=== PATIENT | female | born 1940 | race Caucasian/White ===

== ENCOUNTER 2024-03-08 10:16 | Outpatient (CLI) | payer MEDICARE, SELFPAY ==
--- OUTSIDE RECORDS SUMMARY | 2024-03-08 10:35 | XMS_ITS | Encounter Summary ---
Author Organization [facility] Address [address] [place] [address] Phone Care Team Providers Care Clothing Pattern Preparer Name Role Phone Vincent Costello MD Primary Care Provider [phone] Patricia Mcginnis MD Unavailable [phone] Kandice Rollins OPENING MACHINE CLEANER Unavailable Unavailable Belinda Ha DO Unavailable [phone] Paige Goldman APRN, CDL INSTRUCTOR Unavailable Rosmery Rico MD Primary Care Provider Reason for Visit * Reason Comments Medication Refill Encounter Details Date Type Department Care Team (Late st Contact Info) Description 09/11/2020 Refill [facility] - Primary Care - [place] [address] [place] [address] Vincent Costello MD [address] [place] [address] Medication Refill Social History Tobacco Use Types Packs/Day Years Used Date Smoking Tobacco: Former Cigarettes 1.5 27 Smokeless Tobacco: Never Alcohol Use Standard Drinks/Week Comments Yes 8 (1 standard drink = 0.6 oz pur e alcohol) with dinner PHQ-2 Answer Date Recorded PHQ-2 Score 0 10/04/2018 Sexually Active Control Partners Comments Not Currently Comments No Sex and Gender Information Value Date Recorded Sex Assigned at Not on file Legal Sex Female 7:32 PM CDT Gender Identity Not on file Sexual Orientation Not on file COVID-19 Exposure Response Date Recorded In the last month, have you been in contact with someone who was confirmed or suspected to have Coronavirus / COVID-19? No / Unsure 09/09/2020 10:29 AM CDT documented as of this encounter Miscellaneous Notes * Telephone Encounter - Analia Barth RN - 09/11/2020 8:39 AM CDT Medication approved and signed per standing order protocol.Medication approved and signed per standing order protocol. documented in this encounter Plan of Treatment Not on file documented as of this encounter Visit Diagnoses Diagnosis Enuresis documented in this encounter Additional Health Concerns Infection Onset Date Last Indicated Resolved Time COVID - 19 12/30/2021 12/30/2021 01/03/2022 11:0 4 AM SUB PRIOR Assessment Noted Time PHQ-9 Depression Total Score: 0 06/01/19 19 9:00 AM CDT documented as of this encounter Care Teams Clothing Pattern Preparer Relationship Specialty Start Date End Date Vincent Costello MD [address] [place] [address] PCP - General Internal Medicine 09/30/15 08/31/23 Rosmery Rico MD [address] [place] [address] PCP - General Family Medicine 09/01/23 Patricia Mcginnis MD [address] [facility], [address] [address] Consulting Physician Nephrology 05/03/16 Kandice Rollins NP [address] [facility], [address] [address] Nurse Practitioner Psychiatry 01/30/20 Dilcia Belinda MayaDO [address] [place] [address] Dr Char Escalera [address] [address] Consulting Physician Otolaryngology 02/24/23 Paige Goldman APRN, CDL INSTRUCTOR [address] [place] [address] Nurse Practitioner Advanced Practice Nurse 01/26/23 Quang Rollins MD Consulting Physician Psychiatry 11/03/16 documented as of this encounter
--- OUTSIDE RECORDS SUMMARY | 2024-03-08 10:35 | XMS_ITS | Encounter Summary ---
Author Organization [facility] Address [address] [place] [address] Phone Care Team Providers Care Consulting Property Manager Name Role Phone Vincent Costello MD Primary Care Provider [phone] Patricia Mcginnis MD Unavailable [phone] Kandice Rollins ACCOUNTS PAYABLE TECHNICIAN Unavailable Unavailable Belinda Ha DO Unavailable [phone] Paige Goldman APRN, WOOD MECHANIST Unavailable Rosmery Rico MD Primary Care Provider [phone] Reason for Visit * Reason Comments Medication Refill Encounter Details Date Type Department Care Team (Late st Contact Info) Description 03/17/[address] [facility] - Primary Care - [place] [address] [place] [address] Vincent Costello MD [address] [place] [address] Medication Refill Social History Tobacco Use Types Packs/Day Years Used Date Smoking Tobacco: Former Cigarettes 1.5 27 Smokeless Tobacco: Never Alcohol Use Standard Drinks/Week Comments Yes 8 (1 standard drink = 0.6 oz pur e alcohol) with dinner PHQ-2 Answer Date Recorded Total Score - Questions 1-9 0 05/2021 Sexually Active Control Partners Comments Not Currently Comments No Sex and Gender Information Value Date Recorded Sex Assigned at Not on file Legal Sex Female 7:32 PM CDT Gender Identity Not on file Sexual Orientation Not on file COVID-19 Exposure Response Date Recorded In the last 10 days, have yo u been in contact with someone who was confirmed or suspected to have Coronavirus/COVID-19? No / Unsure 03/17/2022 2:13 PM SHEET HANGER documented as of this encounter Miscellaneous Notes * Telephone Encounter - Vincent Costello MD - 03/17/2022 11:51 AM SHEET HANGER Refill request approved. T HANGER * Telephone Encounter - Alia Black RN - 03/17/2022 11:14 AM CST Medication failed the protocol, provider to review and approve the medication order if appropriate. Requested Prescriptions Pending Prescriptions Disp Refills traMADol (ULTRAM) 50 MG Tablet [Pharmacy Med Name: TRAMADOL 50MG TABLETS] 28 Tablet 0 Sig: TAKE 1 TABLET BY MOUTH EVERY 8 HOURS NEEDED FOR MODERATE TO SEVERE PAIN Not Delegated - Opioid Agonists Protocol Failed - 03/17/2022 11:12 AM Failed - This refill cannot be delegated Passed - Visit with relevant provider in past 12 months or upcoming 90 days Recent Visits Date Type Provider Dept 02/18/22 Office Visit [facility] 01/07/22 Office Visit Vincent Costello MD [facility] 12/15/21 Office Visit Ness Mccrary APRN, CNP [facility] 08/17/21 Office Visit Vincent Costello MD [facility] Showing recent visits within past 365 days and meeting all other requirements Future Appointments No visits were found meeting these conditions. Showing future appointments within next 90 days and meeting all other requirements T HANGER * Telephone Encounter - Alia Black RN - 03/17/2022 11:13 AM CST Per [place] PDMP last fill date 02/16/22. T HANGER documented in this encounter Plan of Treatment Not on file documented as of this encounter Visit Diagnoses Diagnosis Arthritis Arthropathy, unspecified, site unspecified documented in this encounter Additional Health Concerns Assessment Noted Time PHQ-9 Depression Total Score: 0 06/01/19 19 9:00 AM CDT documented as of this encounter Care Teams Consulting Property Manager Relationship Specialty Start Date End Date Vincent Costello MD [address] [place] [address] PCP - General Internal Medicine 09/30/15 08/31/23 Rosmery Rico MD [address] [place] [address] PCP - General Family Medicine 09/01/23 Patricia Mcginnis MD [address] [facility], [address] [address] Consulting Physician Nephrology 05/03/16 Kandice Rollins NP [address] [facility] IM NE[facility]OLOGY, [address] [address] Nurse Practitioner Psychiatry 01/30/20 Belinda Ha DO [address] [place] [address] Dr Char Escalera [address] [address] Consulting Physician Otolaryngology 02/24/23 Paige Goldman APRN, WOOD MECHANIST [address] [place] [address] Nurse Practitioner Advanced Practice Nurse 01/26/23 Quang Rollins MD Consulting Physician Psychiatry 11/03/16 documented as of this encounter
--- OUTSIDE RECORDS SUMMARY | 2024-03-08 10:35 | XMS_ITS | Clinical Summary ---
Author Organization [facility] Address [address] [facility], [address] [address] Phone Care Team Providers Care Traffic Investigator Name Role Phone Patricia Mcginnis MD Unavailable [phone] Kandice Rollins NP Unavailable Unavailable Belinda Ha DO Unavailable [phone] Paige Goldman APRN, PLASTIC MANAGER Unavailable Rosmery Rico MD Primary Care Provider [phone] Allergies Active Allergy Reactions Criticality Noted Date Comments Penicillins Diarrhea 10/19/2020 Sulfa Antibiotics Unknown 03/03/2015 Medications Calcium Carbonate-Vitam in D (CALCIUM + D PO) Take 1,000 mg by mouth daily. Active traZODone (DESYREL) 50 MG Tablet TAKE 1 TAB BY MOUTH NIGHTLY. 90 Tab 1 01/05/2018 Active DULoxetine (CYMBALTA) [address] Particles Take 2 Caps by mouth daily. 60 Cap 5 12/03/2018 Active cholecalciferol 25 mcg Tablet Take 1,000 Units by mouth. 01/10/2019 Active Diclofenac Sodium (VOLTAREN) 1 % Gel Apply 4 g as needed for Other (Pain). on back 06/15/2016 Active buPROPion (WELLBUTRIN) 300 MG TABLET SR 24 HR XL tablet TAKE 1 TABLET BY MOUTH EVERY DAY IN THE MORNING 12/22/2020 Active amLODIPine (NORVASC) 5 MG TabletIndicatio ns:Hypertension , essential Take 1 Tablet by mouth daily. 90 Tablet 01/06/2022 Active levothyroxine (SYNTHROID) 25 MCG Tablet TAKE 1 TABLET BY MOUTH DAILY 90 Tablet 3 11/21/2022 Active ipratropium (ATROVENT) 0.03 % Solution USE 2 SPRAYS IN EACH NOSTRIL THREE TIMES DAILY 01/25/2023 Active traMADol (ULTRAM) 50 MG TabletIndicatio ns:Arthritis Take 1 Tablet by mouth every 8 hours as needed for Moderate or more severe pain or Severe pain. 28 Tablet 1 07/12/2023 Active buPROPion (WELLBUTRIN) 300 MG TABLET SR 24 HR XL tablet Take 1 Tablet by mouth daily. 06/26/2023 Active colestipol (COLESTID) 1 GM Tablet Take 1 g by mouth 2 times daily. 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 last week Chronic rhinitis 01/25/2023 02/24/2023 Overview (02/24/2023): Last Assessment & Plan: Atrovent 2 sprays into each nostril while looking down over the sink, do not sniff in or blow nose after use for at least 30 minutes, about 30 minutes before a meal Anxiety 12/30/2021 VMR (vasomotor rhinitis) 01/30/2020 History of SCC (squamous cell carcinoma) of skin 09/24/2019 History of basal cell carcinoma 09/24/2019 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b chronic kidney disease 2017 Stage 3b chronic kidney disease 01/05/2018 Hypertension, essential 01/05/2018 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 Depression 08/12/2015 Irritable bowel syndrome with diarrhea 6 Mixed hyperlipidemia 04/01/2015 Gastroesophageal reflux disease without esophagi tis 04/01/2015 Hypothyroidism due to acquired atrophy of thyroi d 04/01/2015 Arthritis 04/01/2015 Episodic tension-type headache 12/03/2014 Resolved Problems Problem Noted Date Diagnosed Date Resolved Date Pyelonephritis 01/04/2022 03/31/2022 Acute cystitis 12/30/2021 01/07/2022 Acute kidney injury superimp osed on chronic kidney disease 12/30/2021 03/31/2022 Gram negative septicemia 12/30/2021 Anemia in CKD (chronic kidney disease) 09/11/2015 12/03/2018 Chronic kidney disease, stage I 04/03/2015 05/31/2018 Immunizations Immunization Administration Dates Next Due Covid-19, Mrna, Lnp-s, PF, 1 00 mcg/0.5 mL Dose (Moderna) 08/17/2021,04/17/2020,03/20/2020 Influenza Vaccine greater than 3 yrs 01/05/2021, 10/30/2013 Influenza Vaccine, Quadrivalent, PF 11/22/2018,0 11/03/2016 Influenza, High-dose, Quadrivalent 11/16/2021 Influenza, Quadrivalent, Adjuvanted 11/08/2022,1 Influenza, Seasonal, Injectable, Undefined 01/05,10/26/2012,11/27/2008 Influenza, high-dose, trivalent, PF 11/15/2017,0 11/06/2015 PUR FLU HIGH DOSE (FLUZONE) 03/03/2015 PUR PCV-13 09/30/2015 PUR TDAP 7+ YRS IM 02/29/2016 Pneumococcal Vaccine Adult - 23 Valent 3,04/25/2007 TDAP Vaccine 08/16/2006 Zoster Vaccine Recombinant 05/05/2021,01/05/2021 Zoster Vaccine, live 03/06/2009 Family History Medical History Relation Name Comments Congestive Heart Failure Brother 1 High Cholesterol Brother 1 High Cholesterol Brother 2 Osteoarthritis Brother 2 Congestive Heart Failure Father High Cholesterol Father Hypertension Father Osteoarthritis Maternal Grandfather Osteoarthritis Mother High Cholesterol Sister 1 High Cholesterol Sister 2 Relation Name Status Comments Brother 1 Brother 2 Father Maternal Grandfather Mother Sister 1 Sister 2 Social History Tobacco Use Types Packs/Day Years Used Date Smoking Tobacco: Former Cigarettes 1.5 27 Smokeless Tobacco: Never Tobacco Cessation:Counseling Given: Not Answered Alcohol Use Standard Drinks/Week Comments Yes 8 (1 standard drink = 0.6 oz pur e alcohol) with dinner PHQ-2 Answer Date Recorded Total Score - Questions 1-9 0 02/06 Sexually Active Control Partners Comments Not Currently Comments No Sex and Gender Information Value Date Recorded Sex Assigned at Not on file Legal Sex Female 7:32 PM CDT Gender Identity Not on file Sexual Orientation Not on file Last Filed Vital Signs Vital Sign Reading Time Taken Comments Blood Pressure 128/80 11/15/2023 11:34 AM CDT Pulse 74 11/15/2023 11:34 AM CDT Temperature 36.1 ??C (96.9 ??F) 11/15/2023 1 1:34 AM CDT Respiratory Rate 14 11/15/2023 11:3 4 AM CDT Oxygen Saturation 94% 11/15/2023 11: 34 AM CDT Inhaled Oxygen Concentration - - Weight 60.3 kg (132 lb 14.4 oz) 024 11:34 AM CDT Height 154.9 cm (5' 1 ) 11/15/2023 11:3 4 AM CDT Body Mass Index 25.11 11/15/2023 11:34 AM CDT Plan of Treatment Health Maintenance Due Date Last Done Comments DEXA Bone Density 07/23/2011 07/22/2009 Influenza Immunization (#1) 2023 10/04/2022, 11/16/2021, 01/05/2021, Additional history exists SARS-COV-2 Immunization (8 - Moderna risk season) 2024 10/24/2023, 11/13/2022, 02/08/2022, Additional history exists Td Immunization Every 10 Years (Adults With 1 Tdap) 02/28/2026 02/29/2016, 08/16/2006 Pneumococcal Immunization (50+ years) Completed 09/30/2015, 10/26/2012, 04/25/2007 Pneumococcal Immunization Combined Discontinued 09/30/2015, 10/26/2012, 04/25/2007 Zoster Immunization Completed 05/05/2021, 01/05/2021, 03/06/2009 Hepatitis C Virus (HCV) Screening Completed 02/24/2023 Respiratory Syncytial Virus (RSV) Immunization (Adult) Completed 10/24/2023 Hepatitis B Immunization Aged Out No longer eligible based on patient's age to complete this topic Meningococcal Immunization (ACWY) Aged Out No longer eligible based on patient's age to complete this topic Rotavirus Immunization Aged Out No lo nger eligible based on patient's age to complete this topic Procedures Procedure Name Priority Date/Time Associated Diagnosis Comments HEPATITIS C ANTIBODY Routine 02/24/2023 9:42 AM CUSTOM CLOTHIER Encounter for hepatitis C screening test for low risk patient from Last 3 Months or Most Recently Relevant to Health Maintenance Results * HEPATITIS C ANTIBODY (02/24/2023 9:42 AM CUSTOM CLOTHIER) hepatitis C antibody 0.11 <1 S/CO [facility] ARCH [id number] 02/24/2023 9:39 PM CUSTOM CLOTHIER [facility] Comment: Signal/Cutoff ratio ??< 0.79 is Nondetected Signal/Cutoff ratio 0.80-0.99 is Grayzone Signal/Cutoff ratio > 0.99 is Detected Supplemental assays are recommended if signal/cutoff ratio is >/=1.00. ??Signal/cutoff ratio result >/= 5.00 is 97% predictive of positivity for recombinant immunoblot assay (RIBA) and will be reported to the [place] Department of Public Health as required. Blood Venipuncture / Unknown 02/24/2023 9:42 AM CUSTOM CLOTHIER 02/24/2023 9:42 AM CUSTOM CLOTHIER us Vincent Costello MD CHEMISTRY ORDERABLES Loreto giraldo Result [facility] [address] [place] [address], from Last 3 Months or Most Recently Relevant to Health Maintenance Insurance MEDICARE RolePoint GENERIC Advance Directives * Full Code (Latest Code Status on File) Date Activated Date Inactivated Comments 01/13/2022 10:54 AM * No CPR-Selective Treatment Date Activated Date Inactivated Comments 12/30/2021 10:37 PM 01/04/2022 6:32 PM No CPR - Selective Treatment: FULL ARREST: Do Not Attempt Resuscitation. PRE-ARREST: DO NOT USE INTUBATION OR MECHANICAL VENTILATION, but may use basic medical treatment like CPAP or BiPAP, antibiotics, IV fluids, oxygen, etc. Avoid care in ICU setting. Question Answer Comments Physician documentation made in notes? Yes Care Teams Traffic Investigator Relationship Specialty Start Date End Date Rosmery Rico MD [address] [place] [address] PCP - General Family Medicine 09/01/23 Patricia Mcginnis MD [address] [facility] [address] [facility] IM NEPH[facility]OLOGY, [address] [address] Consulting Physician Nephrology 05/03/16 Kandice Rollins NP [address] [facility] [address] DIV IM NEPHROLOGY, [address] [address] Nurse Practitioner Psychiatry 01/30/20 Belinda Ha DO [address] [place] [address] Dr Char Escalera [address] [address] Consulting Physician Otolaryngology 02/24/23 Paige Goldman APRN, PLASTIC MANAGER [address] [place] [address] Nurse Practitioner Advanced Practice Nurse 01/26/23 Quang Rollins MD Consulting Physician Psychiatry 11/03/16
--- OUTSIDE RECORDS SUMMARY | 2024-03-08 10:35 | XMS_ITS | Encounter Summary ---
Author Organization [facility] Address [address] [place] [address] Phone Care Team Providers Care Metal Door Assembler Name Role Phone Vincent Costello MD Primary Care Provider [phone] Patricia Mcginnis MD Unavailable [phone] Kandice Rollins METALLURGICAL TECHNICIAN Unavailable Unavailable Belinda Ha DO Unavailable [phone] Paige Goldman APRN, CORE SHAPER SIDES Unavailable Rosmery Rico MD Primary Care Provider [phone] Reason for Visit * Reason Comments Medication Refill Encounter Details Date Type Department Care Team (Late st Contact Info) Description 12/09/2021 Refill [facility] - Primary Care - [place] [address] [place] [address] Vincent Costello MD [address] [place] [address] Medication Refill Social History Tobacco [...] on file Sexual Orientation Not on file documented as of this encounter Miscellaneous Notes * Telephone Encounter - Alia Black RN - 12/09/2021 8:50 AM CDT oxybutynin (DITROPAN-XL) 5 MG TABLET SR 24 HR 90 Tablet 3 03/05/2021 Sig - Route: TAKE 1 TABLET BY MOUTH DAILY - Oral Refill too soon documented in this encounter Plan of Treatment Not on file documented as of this encounter Visit Diagnoses Diagnosis Enuresis documented in this encounter Additional Health Concerns Infection Onset Date Last Indicated Resolved Time COVID - 19 12/30/2021 12/30/2021 01/03/2022 11:0 4 AM WELDING PROCESS SPECIALIST Assessment Noted Time PHQ-9 Depression Total Score: 0 06/01/19 19 9:00 AM CDT documented as of this encounter Care Teams Metal Door Assembler Relationship Specialty Start Date End Date Vincent Costello MD [address] [place] [address] PCP - General Internal Medicine 09/30/15 08/31/23 Rosmery Rico MD [address] [place] [address] PCP - General Family Medicine 09/01/23 Patricia Mcginnis MD [address] [facility], [address] [address] Consulting Physician Nephrology 05/03/16 Kandice Rollins NP [address] [facility], [address] [address] Nurse Practitioner Psychiatry 01/30/20 Belinda Ha DO [address] [place] [address] Dr Char Escalera [address] [address] Consulting Physician Otolaryngology 02/24/23 Paige Goldman APRN, CORE SHAPER SIDES [address] [place] [address] Nurse Practitioner Advanced Practice Nurse 01/26/23 Quang Rollins MD Consulting Physician Psychiatry 11/03/16 documented as of this encounter
--- OUTSIDE RECORDS SUMMARY | 2024-03-08 10:35 | XMS_ITS | Encounter Summary ---
Author Organization [facility] Address [address] [place] [address] Phone Care Team Providers Care Sailor Name Role Phone Vincent Costello MD Primary Care Provider [phone] Patricia Mcginnis MD Unavailable [phone] Kanidce Rollins PHD INTERNSHIP Unavailable Unavailable Belinda Ha DO Unavailable [phone] Paige Goldman APRN, DEVELOPMENTAL MATHEMATICS PROFESSOR Unavailable Rosmery Rico MD Primary Care Provider [phone] Reason for Visit * Reason Comments Medication Refill Encounter Details Date Type Department Care Team (Late st Contact Info) Description 03/12/2023 Refill [facility] - Primary Care - [place] [address] [place] [address] Vincent Costello MD [address] [place] [address] Medication Refill Social History Tobacco [...] encounter Miscellaneous Notes * Telephone Encounter - Avery Hutchinson RN - 03/13/2023 8:12 AM CST The original prescription was discontinued on 02/24/2023 by Vincent Costello MD for the following reason: Med List Clean Up L MACHINE OPERATOR documented in this encounter Plan of Treatment Not on file documented as of this encounter Visit Diagnoses Diagnosis Enuresis documented in this encounter Additional Health Concerns Assessment Noted Time PHQ-9 Depression Total Score: 0 02/24/19 24 9:17 AM SHELL MACHINE OPERATOR documented as of this encounter Care Teams Sailor Relationship Specialty Start Date End Date Vincent Costello MD [address] [place] [address] PCP - General Internal Medicine 09/30/15 08/31/23 Rosmery Rico MD [address] [place] [address] PCP - General Family Medicine 09/01/23 Patricia Mcginnis MD [address] [facility] IM NEPHROLOGY, [address] [address] Consulting Physician Nephrology 05/03/16 Kandice Rollins NP [address] DIV IM NEPHROLOGY, [address] [address] Nurse Practitioner Psychiatry 01/30/20 Belinda Ha DO 4 [facility] [address] Char sEcalera [address] [address] Consulting Physician Otolaryngology 02/24/23 Paige Goldman APRN, DEVELOPMENTAL MATHEMATICS PROFESSOR [address] [place] [address] Nurse Practitioner Advanced Practice Nurse 01/26/23 Quang Rollins MD Consulting Physician Psychiatry 11/03/16 documented as of this encounter
--- OUTSIDE RECORDS SUMMARY | 2024-03-08 10:35 | XMS_ITS | Encounter Summary ---
Author Organization [facility] Address [address] [place] [address] Phone Care Team Providers Care Tile Erector Name Role Phone Vincent Costello MD Primary Care Provider [phone] Patricia Mcginnis MD Unavailable [phone] Kandice Rollins NP Unavailable Unavailable Belinda Ha DO Unavailable [phone] Paige Goldman APRN, CUTTER MACHINE Unavailable Rosmery Rico MD Primary Care Provider Reason for Visit * Reason Comments Medication Refill Encounter Details Date Type Department Care Team (Late st Contact Info) Description 02/27/2023 Refill [facility] - Gastroenterology - [place] [address] [place] [address] Paige Goldman APRN, CUTTER MACHINE [address] [place] [address] Medication Refill Social History Tobacco Use Types [...] Miscellaneous Notes * Telephone Encounter - Analia Haq RN - 02/28/2023 9:37 AM BUILD TECHNICIAN Medication refilled and signed per [facility] chronic medication standing order for pediatric and adult patients. D TECHNICIAN documented in this encounter Plan of Treatment Not on file documented as of this encounter Visit Diagnoses Diagnosis Irritable bowel syndrome with diarrhea Irritable bowel syndrome documented in this encounter Additional Health Concerns Assessment Noted Time PHQ-9 Depression Total Score: 0 02/24/19 24 9:17 AM BUILD TECHNICIAN documented as of this encounter Care Teams Tile Erector Relationship Specialty Start Date End Date Vincent Costello MD [address] [place] [address] PCP - General Internal Medicine 09/30/15 08/31/23 Rosmery Rico MD [address] [place] [address] PCP - General Family Medicine 09/01/23 Patricia Mcginnis MD [address] [facility] [address] DIV IM NEPHROLOGY, [address] [address] Consulting Physician Nephrology 05/03/16 Kandice Rollins NP [address] [facility] DIV IM NEPHROLOGY, [address] [address] Nurse Practitioner Psychiatry 01/30/20 Belinda Ha DO 4 [facility] Dr Char Escalera [address] [address] Consulting Physician Otolaryngology 02/24/23 Paige Goldman APRN, CUTTER MACHINE [address] [place] [address] Nurse Practitioner Advanced Practice Nurse 01/26/23 Quang Rollins MD Consulting Physician Psychiatry 11/03/16 documented as of this encounter
--- OUTSIDE RECORDS SUMMARY | 2024-03-08 10:35 | XMS_ITS | Encounter Summary ---
Author Organization [facility] Address [address] [place] [address] Phone Care Team Providers Care Braided Rug Maker Name Role Phone Vincent Costello MD Primary Care Provider [phone] Patricia Mcginnis MD Unavailable [phone] Kandice Rollins ASSISTANT NURSE MANAGER Unavailable Unavailable Belinda Ha DO Unavailable [phone] Paige Goldman APRN, AIR PLANT ENGINEER Unavailable Rosmery Rico MD Primary Care Provider [phone] Reason for Visit * Reason Comments Medication Refill Encounter Details Date Type Department Care Team (Late st Contact Info) Description 11/16/2021 Refill [facility] - Primary Care - [place] [address] [place] [address] Vincent Costello MD [address] [place] [address] Medication Refill Social History Tobacco [...] Telephone Encounter - Vincent Costello MD - 11/16/2021 10:21 AM CDT Refill request approved. * Telephone Encounter - Aislinn Larson RN - 11/16/2021 10:20 AM CDT Medication failed the protocol, provider to review and approve the medication order if appropriate. Requested Prescriptions Pending Prescriptions Disp Refills levothyroxine (SYNTHROID) 25 MCG Tablet [Pharmacy Med Name: LEVOTHYROXINE 0.025MG (25MCG) TAB] 90 Tablet 3 Sig: TAKE 1 TABLET BY MOUTH DAILY Thyroid Hormones Protocol Failed - 11/16/2021 10:11 AM Failed - Normal TSH in past 12 months TSH Date Value Ref Range Status 08/06/2020 2.740 0.270 - 4.200 mIU/L Final Passed - Visit with relevant provider in past 12 months or upcoming 90 days Recent Visits Date Type Provider Dept 08/17/21 Office Visit Vincent Costello MD [facility] 03/08/21 Office Visit Vincent Costello MD [facility] 02/09/21 [facility] Showing recent visits within past 365 days and meeting all other requirements Future Appointments No visits were found meeting these conditions. 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 Assessment Noted Time PHQ-9 Depression Total Score: 0 06/01/19 19 9:00 AM CDT documented as of this encounter Care Teams Braided Rug Maker Relationship Specialty Start Date End Date Vincent Costello MD [address] [place] [address] PCP - General Internal Medicine 09/30/15 08/31/23 Rosmery Rico MD [address] [place] [address] PCP - General Family Medicine 09/01/23 Patricia Mcginnis MD [address] DIV IM NEPHROLOGY, [address] [address] Consulting Physician Nephrology 05/03/16 Kandice Rollins NP [address] DIV IM NEPHROLOGY, [address] [address] Nurse Practitioner Psychiatry 01/30/20 Belinda Ha DO [address] [facility] [address] Char Escalera [address] [address] Consulting Physician Otolaryngology 02/24/23 Paige Goldman APRN, AIR PLANT ENGINEER [address] [place] [address] Nurse Practitioner Advanced Practice Nurse 01/26/23 Quang Rollins MD Consulting Physician Psychiatry 11/03/16 documented as of this encounter
--- OUTSIDE RECORDS SUMMARY | 2024-03-08 10:36 | XMS_ITS | Encounter Summary ---
Author Organization [facility] Address [address] [place] [address] Phone Care Team Providers Care Bus Analyst Name Role Phone Vincent Costello MD Primary Care Provider + Rosmery Rico MD Primary Care Provider [phone] Encounter Details Date Type Department Care Team (Latest Contact Info) Description 08/17/2021 Orders Only [facility] Scanning, Provider Social History Tobacco Use Types Packs/Day Years Used Date Smoking Tobacco: Former Smokeless Tobacco: Never Alcohol Use Standard Drinks/Week Comments Yes 2 (1 standard drink = 0.6 oz pur e alcohol) Comments Unknown Sex and Gender Information Value Date Recorded Sex Assigned at Not on file 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 Gender Identity Not on file Sexual Orientation Not on file documented as of this encounter Plan of Treatment Not on file documented as of this encounter Procedures Procedure Name Priority Date/Time Associated Diagnosis Comments SCAN - LABS 08/17/2021 documented in this encounter Results * SCAN - LABS (08/17/2021) us Provider Scanning Final Result documented in this encounter Visit Diagnoses Not on filedocumented in this encounter Care Teams Bus Analyst Relationship Specialty Start Date End Date Vincent Costello MD PCP - General 01/12/17 10/05/23 Rosmery Rico MD [address] [place] [address] PCP - General Family Medicine 10/06/23 documented as of this encounter
--- OUTSIDE RECORDS SUMMARY | 2024-03-08 10:36 | XMS_ITS | Clinical Summary ---
Author Organization [facility] Address [address] [facility] [place] [address] Care Team Providers Care Computer Tester Name Role Phone Rigo Grier MD, Ritchie Bui Primary Care Provi tarsha Unavailable Source Comments [facility],non-owned Affiliates and Associated Physician Practices is amultiple site organization consisting of ambulatory clinics and hospital sitesin [place], [place], [place] and [place]. This disclosure is being madepursuant to the Care Everywhere program and may not contain all information available regarding this patient. Last updated 17.[facility] Allergies Active Allergy Reactions Criticality Noted Date Comments Sulfa Drugs Rash Medium 01/24/2018 Medications * Be aware that medications may not be up to date on this document. Alwaysverify current medications with the patient. Medication Sig Dispensed Refills Start Date End Date Status CALCIUM CARBONATE-VITAMIN D PO Take 1,000 mg by mouth Active diclofenac sodium (VOLTAREN) 1 % gel Apply 4 (four) g to affected area 06/15/2016 Active DULoxetine (CYMBALTA) 60 MG capsule Take 2 (two) capsules by mouth 12/23/2016 Active traZODone (DESYREL) 50 MG tablet Take 1 (one) tablet by mouth 01/05/2018 Active levothyroxine (SYNTHROID) 25 MCG tablet TAKE 1 TABLET BY MOUTH EVERY DAY 05/23/2019 Active traMADol (ULTRAM) 50 MG tablet TAKE 1 TABLET BY MOUTH EVERY 8 HOURS NEEDED FOR MODERATE TO SEVERE PAIN 08/13/2019 Active amLODIPine (NORVASC) 10 MG tablet Take 1 (one) tablet by mouth once daily 05/03/2017 Active ARIPiprazole (ABILIFY) 2 MG tablet TAKE 1 TABLET(2 MG) BY MOUTH DAILY 08/13/2019 Active buPROPion XL 24hr (WELLBUTRIN-XL) 300 MG tablet Take 1 (one) tablet by mouth once daily 03/19/2020 Active Cholecalciferol 25 MCG (1000 UT) Take 1 (one) tablet by mouth once daily 01/10/2019 Active Cyanocobalamin (B-12 PO) Take 1 tablet by mouth once daily Active amoxicillin (AMOXIL) 500 MG capsule Take 1 (one) capsule by mouth 3 times daily 07/22/2020 Active Active Problems Problem Noted Date Diagnosed Date VMR (vasomotor rhinitis) 01/30/2020 History of SCC (squamous cell carcinoma) of skin 09/24/2019 History of basal cell carcinoma 09/24/2019 Seborrheic keratosis 09/24/2019 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 kidney disease 018 CKD (chronic kidney disease) stage 3, GFR 30-59 ml/min 01/05/2018 Essential (primary) hypertension 01/05/2018 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 Hypothyroidism 04/01/2015 Arthritis 06/22/2013 Overview (09/24/2019): Arthritis Depression 06/22/2013 Overview (09/24/2019): Depression Gastroesophageal reflux disease 06/22/2013 Overview (09/24/2019): ESOPHAGEAL REFLUX Generalized osteoarthritis 06/22/2013 Overview (09/24/2019): GENERAL OSTEOARTHROSIS Hypercholesterolemia 06/22/2013 Overview (09/24/2019): Hypercholesterolemia 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/22/2011 Family History Medical History Relation Name Comments Cancer - Skin, Non Melanoma Sister Cancer - Skin, Melanoma Neg Hx Relation Name Status Comments Sister Alive Social History Tobacco Use Types Packs/Day Years Used Date Smoking Tobacco: Former Cigarettes 1.5 25 1 03/27/1957 - 01/24/1983 Smokeless Tobacco: Never Alcohol Use Standard Drinks/Week Comments Yes 5 (1 standard drink = 0.6 oz pur e alcohol) Sex and Gender Information Value Date Recorded Sex Assigned at Not on file Gender Identity Not on file Sexual Orientation Not on file Last Filed Vital Signs Vital Sign Reading Time Taken Comments Blood Pressure 150/86 10/18/2019 12:39 PM CDT Pulse 80 10/18/2019 12:39 PM CDT Temperature - - Respiratory Rate - - Oxygen Saturation - - Inhaled Oxygen Concentration - - Weight 63.5 kg (140 lb) 10/18/2019 9:22 AM CDT Height 154.9 cm (5' 1 ) 10/18/2019 9:22 AM CDT Body Mass Index 26.45 10/18/2019 9:22 AM CDT Plan of Treatment Upcoming Encounters Date Type Department Care Team (Late st Contact Info) Description 03/26/2024 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 12 MONTHS 1940 DTAP/TDAP/TD VACCINES (1 - Tdap) 07/07/1958 PNEUMOCOCCAL VACCINE 50+ (1 of 1 - PCV) 07/07/1989 ZOSTER VACCINE (1 of 2) 07/07/1989 Respiratory Syncytial Virus (RSV) Vaccine Pt: or over 60 yrs (1 - 1-dose 75+ series) 07/07/2014 COVID-19 VACCINE ( season) 2023 08/17/2021, 04/17/2020, 03/20/2020 INFLUENZA VACCINE (#1) 2023 , 11/22/2018, 11/15/2017, Additional history exists DEPRESSION SCREENING 02/07/2024 HEPATITIS B VACCINE Aged Out No longe r eligible based on patient's age to complete this topic HIB VACCINE Aged Out No longer eligi ble based on patient's age to complete this topic HPV VACCINE Aged Out No longer eligi ble based on patient's age to complete this topic MENINGOCOCCAL (Group B) VACCINE Aged Out No longer eligible based on patient's age to complete this topic MENINGOCOCCAL VACCINE Aged Out No frances john eligible based on patient's age to complete this topic Care Teams Computer Tester Relationship Specialty Start Date End Date Ritchie Sierra Jr., MD PCP - General 11/30/17
--- OUTSIDE RECORDS SUMMARY | 2024-03-08 10:36 | XMS_ITS | Clinical Summary ---
Author Organization [facility] Address [address] [place] [address] Care Team Providers Care Foreign Policy Officer Name Role Phone Rosmery Rico MD Primary Care Provider [phone] Allergies Active Allergy Reactions Criticality Noted Date Comments Penicillins Diarrhea Low 10/19/2020 Sulfa (Sulfonamide Antibiotics) Other (See comments) Reaction: HIVES;, , Sulfamethoxazole Rash Reaction: rash, Medications diclofenac sodium (VOLTAREN) 1 % gel Place 1 application on the skin as needed. 02/09/19 13 Active traMADol (ULTRAM) 50 mg tablet Take 1 tablet (50 mg total) by mouth every 6 (six) hours as needed 0 07/08/19 18 Active levothyroxine (SYNTHROID, LEVOTHROID) 25 mcg tablet Take 1 tablet (25 mcg total) by mouth daily 1 04/18/19 18 Active cholecalciferol (VITAMIN D-3) 1000 unit tabletIndications:Seco ndary hyperparathyroidism (HCC) Take 1 tablet (1,000 Units total) by mouth daily 30 tablet 11 01/11/20 19 Active ipratropium (ATROVENT) 21 mcg (0.03 %) nasal sprayIndications:Chron ic rhinitis Administer 2 sprays into each nostril 3 (three) times a day 30 mL 11 01/26/20 23 Active traZODone (DESYREL) 50 mg tablet TAKE 1 TABLET(50 MG) BY MOUTH EVERY NIGHT 90 tablet 1 03/13/[address] (CYMBALTA) 60 mg capsule TAKE 2 CAPSULE BY MOUTH DAILY 180 capsule 1 11/14/19 24 Active buPROPion XL (WELLBUTRIN XL) 300 mg 24 hr tablet TAKE 1 TABLET BY MOUTH ONCE DAILY. 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) 01/30/2020 History of basal cell carcinoma 09/24/2019 Seborrheic keratosis 09/24/2019 CKD (chronic kidney disease) stage 3, GFR 30-59 ml/min 01/05/2018 Essential hypertension 01/05/2018 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 kidney disease 018 Ankle pain 01/08/2016 Pain due to any device, implant or graft 016 Primary osteoarthritis of ankle 09/25/2015 Irritable bowel syndrome with diarrhea 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 04/01/2015 Episodic tension-type headache 12/03/2014 Anxiety 12/01/2014 Hypothyroidism 12/01/2014 Arthritis 06/22/2013 Overview (05/11/2016): Arthritis Depression 06/22/2013 Overview (05/12/2016): Depression Generalized osteoarthritis 06/22/2013 Overview (05/12/2016): GENERAL OSTEOARTHROSIS Hypercholesterolemia 06/22/2013 Overview (05/12/2016): Hypercholesterolemia Multiple-type hyperlipidemia 06/22/2013 Overview (05/13/2016): MIXED HYPERLIPIDEMIA Gastroesophageal reflux disease 06/22/2013 Overview (05/13/2016): ESOPHAGEAL REFLUX 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/22/2011 Encounters Date Type Department Care Team Description 12/07/2023 5:00 PM CDT Lab [facility] ([facility]) [address] [place] [address] CKD stage 3b, GFR 30-44 ml/min ([facility]) 12/07/2023 3:40 PM CDT Office Visit [facility] Nephrology [facility] 5[address] [place] [address] [place] [address] CKD stage 3b, GFR 30-44 ml/min ([facility]) (Primary Dx); Renal osteodystrophy from Last 3 Months Immunizations Name Administration Dates Next Due Influenza, Trivalent, IM (MDV) 11/27/2008 Pneumococcal Polysaccharide PPV23 04/25/2007 Tdap 08/16/2006 ZOSTER LIVE 03/06/2009 Surgical History Surgery Date Site/Laterality Comments OTHER SURGICAL HISTORY 02/06/2002 - 02/05/2003 Back: L4-5 fusion OTHER SURGICAL HISTORY Lt ankle fusion VAGINAL HYSTERECTOMY 02/07/1976 - 02/05/1977 Hysterectomy, vaginal KNEE ARTHROPLASTY 02/06/1998 - 02/05/1999 Knee replacement KNEE ARTHROPLASTY 02/06/1999 - 02/06/2000 knee replacement SPINAL FUSION 02/07/2000 - 02/05/2001 Back Fusion OTHER SURGICAL HISTORY 02/06/2006 - 02/05/2007 Ankle Fusion OTHER SURGICAL HISTORY [id number] Finger Fusions x 9 OTHER SURGICAL HISTORY 02/06/1983 - 02/06/1984 excessive bleeding: Hysterectomy, vaginal OTHER SURGICAL HISTORY 02/06/1962 - 02/05/1963 : 3 1/2 hr labor OTHER SURGICAL HISTORY 02/06/1969 - 02/05/1970 : 5 hr labor OTHER SURGICAL HISTORY 02/06/1961 - 02/05/1962 : 7 hr labor OTHER SURGICAL HISTORY 02/07/2000 - 02/05/2001 Advanced right medial compartment knee arthropathy: Right knee arthroscopy with partial medial meniscectomy/chondropla sty OTHER SURGICAL HISTORY 02/07/2000 - 02/05/2001 Torn left lateral meniscus/advanced femoral condylar arthropathy, lateral c: Left knee arthrosopic lateral meniscectomy/chondropla sty OTHER SURGICAL HISTORY hysterectomy 1994 NE ARTHROPLASTY KNEE TIBIAL PLATEAU Knee Replacement - (Added by Conv) BACK SURGERY COLONOSCOPY UPPER GASTROINTESTINAL ENDOSCOPY Medical History Medical History Date Comments Hx Other Medical Back Hx Other Medical DJD both knees Gastroesophageal reflux disease GERD Hx Other Medical excessive bleed ing Hx Other Medical 1962 ; Outc ome: 40 week 6 lb(s) 5 oz Female Hx Other Medical 1969 ; Outc ome: 40 week 6 lb(s) Male Hx Other Medical 1961 ; Outc ome: 40 week 7 lb(s) Male Hx Other Medical Advanced right medial compartment knee arthropathy Hx Other Medical Torn left later al meniscus/advanced femoral condyl Depression Thyroid disease Chronic kidney disease Hyperlipidemia Arthritis Anxiety Hypertension Irritable bowel syndrome Family History Medical History Relation Name Comments Hyperlipidemia Brother 2 Hyperlipidemi a; Arthritis Brother 3 arthritis; Cancer Brother 4 Cancer; Hyperlipidemia Father Hyperlipidemi a; Hypertension Father Hypertension; / Family history of hypertension - (Added by Conv) Kidney failure Father Renal failure ; Cause of : Renal failure Irritable bowel syndrome Mother Irr itable bowel disease; Arthritis Other 1 Family Hx Arthritis; Stroke Other 2 Family history of cerebrovascular accident (CVA) - Relation: Grandparent (Added by TW Conv) Hyperlipidemia Sister Hyperlipidemi a; Relation Name Status Comments Brother 1 Alive Brother 2 Brother 3 Brother 4 Father Alive Mother Alive Other 1 Family Hx Alive Other 2 Sister Social History Tobacco Use Types Packs/Day Years Used Date Smoking Tobacco: Former Smokeless Tobacco: Never Tobacco Cessation:Counseling Given: Not Answered Alcohol Use Standard Drinks/Week Comments Yes 2 (1 standard drink = 0.6 oz pur e alcohol) Comments Unknown Sex and Gender Information Value Date Recorded Sex Assigned at Not on file Legal Sex Female 11:53 PM PLASTIC FRAME INSERTER Gender Identity Not on file Sexual Orientation Not on file Obstetrics History Last Filed Vital Signs Vital Sign Reading Time Taken Comments Blood Pressure 154/65 12/07/2023 4:05 PM CDT Pulse 80 12/07/2023 4:05 PM CDT Temperature 36.4 ??C (97.5 ??F) 01/25/2023 10:[address] Respiratory Rate - - Oxygen Saturation 96% 01/25/2023 10:41 AM PLASTIC FRAME INSERTER Inhaled Oxygen Concentration - - Weight 60.8 kg (134 lb) 12/07/2023 4:05 PM CDT Height 157.5 cm (5' 2 ) 12/07/2023 4:05 PM CDT Body Mass Index 24.51 12/07/2023 4:05 PM CDT Plan of Treatment Health Maintenance Due Date Last Done Comments Depression Screening 1940 Fall Risk Assessment 1940 Osteoporosis Screening-Bone Density Scan 1940 Hepatitis B Screening 07/07/1958 Well Visit 65+ 07/07/2004 Covid-19 Vaccine (2023-2 5 season) 2023 08/17/2021, 04/17/2020, 03/20/2020 Influenza Vaccine (#1) 2023 , 11/14/2019, 11/22/2018, Additional history exists DTaP/Tdap/Td Vaccine (3 - Td or Tdap) 02/28/2026 02/29/2016, 08/16/2006 Pneumococcal vaccine 65+ Completed 016, 10/26/2012, 10/07/2012, Additional history exists Zoster Vaccine Completed 05/05/2021, 12/09, 03/06/2009 Procedures Procedure Name Priority Date/Time Associated Diagnosis Comments EGFR Routine 12/07/2023 2:45 PM CDT CKD stage 3b, GFR 30-44 ml/min (HCC) URINALYSIS, MICROSCOPIC ONLY Routine 12/07/2023 2:45 PM CDT CKD stage 3b, GFR 30-44 ml/min (HCC) DIFFERENTIAL AUTO Routine 12/07/2023 2:4 5 PM CDT CKD stage 3b, GFR 30-44 ml/min (HCC) CBC WITH AUTO DIFFERENTIAL Routine 12/07/2023 2:45 PM CDT CKD stage 3b, GFR 30-44 ml/min (HCC) RENAL FUNCTION PANEL Routine 12/07/2023 2:45 PM CDT CKD stage 3b, GFR 30-44 ml/min (HCC) URINALYSIS AND REFLEX TO MICROSCOPIC Routine 12/07/2023 2:45 PM CDT CKD stage 3b, GFR 30-44 ml/min (HCC) ALBUMIN CREATININE RATIO, URINE Routine 12/07/2023 2:45 PM CDT CKD stage 3b, GFR 30-44 ml/min (HCC) PROTEIN / CREATININE RATIO, URINE, RANDOM Routine 12/07/2023 2:45 PM CDT CKD stage 3b, GFR 30-44 ml/min (HCC) PTH Routine 12/07/2023 2:45 PM CDT CKD stage 3b, GFR 30-44 ml/min (HCC) VITAMIN D 25 HYDROXY Routine 12/07/2023 2:45 PM CDT CKD stage 3b, GFR 30-44 ml/min (HCC) from Last 3 Months Results * (ABNORMAL) eGFR (12/07/2023 2:45 PM CDT) eGFR 28(L) >=60 mL/min/1. 73 m2 Comment: Interpretive Data Reference Interval Normal ?>/= 90 mL/min/1.73m2 Mildly decreased* ? 60 - 89 mL/min/1.73m2 Mildly to moderately decreased ?45 - 59 mL/min/1.73m2 Moderately to severely decreased ??30 - 44 mL/min/1.73m2 Severely decreased ?15 - 29 mL/min/1.73m2 Kidney Failure ?< 15 ??mL/min/1.73m2 *Relative to young adult level Estimated glomerular filtration rate is determined by the 2020 CKD-EPI equation recommended by the National Kidney Foundation (A Unifying Approach to GFR Estimation: Recommendations of the NKF-ASK Task Force on Reassessing the Inclusion of Race in Diagnosing Kidney Disease, JASN 202). The CKD-EPI equation should not be used for patients with unstable renal function and has not been validated in children and those over 70. Current interpretive data was last reviewed 2020. Blood 12/07/2023 2:45 PM CDT 12/07/2023 3:33 PM CDT us Michael Mejia MD LAB BLOOD ORD ERABLES Final Result [facility] Department [place] [address] * Differential, auto (12/07/2023 2:45 PM CDT) Neutrophil abs 4.8 1.5 - 6.5 K/cumm Imm gran abs 0.0 0.0 - 0.1 K/cumm [facility] Lymphocyte abs 1.6 0.8 - 3.3 K/cumm [facility] Monocyte abs 0.7 0.2 - 0.8 K/cumm [facility] Eosinophil abs 0.3 0.0 - 0.5 K/cumm [facility] Basophil abs 0.1 0.0 - 0.1 K/cumm [facility] Neutrophil pct 63.4 % [facility] Comment: Interpretive Data Percent cell count reference ranges are not reported, since discordance with absolute values may lead to misinterpretation of CBC data. Current Interpretive Data was last revised on 2017. Imm gran pct 0.5 % [facility] Comment: Interpretive Data Percent cell count reference ranges are not reported, since discordance with absolute values may lead to misinterpretation of CBC data. Current Interpretive Data was last revised on 2017. Lymphocyte pct 21.1 % [facility] Comment: Interpretive Data Percent cell count reference ranges are not reported, since discordance with absolute values may lead to misinterpretation of CBC data. Current Interpretive Data was last revised on 2017. Monocyte pct 9.3 % [facility] Comment: Interpretive Data Percent cell count reference ranges are not reported, since discordance with absolute values may lead to misinterpretation of CBC data. Current Interpretive Data was last revised on 2017. Eosinophil pct 4.5 % [facility] Comment: Interpretive Data Percent cell count reference ranges are not reported, since discordance with absolute values may lead to misinterpretation of CBC data. Current Interpretive Data was last revised on 2017. Basophil pct 1.2 % [facility] Comment: Interpretive Data Percent cell count reference ranges are not reported, since discordance with absolute values may lead to misinterpretation of CBC data. Current Interpretive Data was last revised on 2017. Blood 12/07/2023 2:45 PM CDT 12/07/2023 3:27 PM CDT Michael Mejia MD LAB BLOOD ORD ERABLES Final Result [facility] Department [place] [address] * (ABNORMAL) Urinalysis reflex to microscopic (12/07/2023 2:45 PM CDT) Color, ur Straw Yellow Clarity, ur Clear Clear [facility] Specific gravity, ur 1.015 1.003 - 1.030 [facility] pH, urine 6.0 [facility] Comment: Interpretive Data ? Urine pH is affected by diet, medications, systemic acid-base disturbances, and renal tubular function. ??pH may affect urinary stone formation. ??For example, urine pH below 6.0 may help reduce the tendency for calcium phosphate stones and pH greater than 6.0 may reduce the tendency for uric acid stone formation. Source: [place] Current Interpretive Data was last revised on 2017 Protein, ur ql Negative Negative [facility] Glucose, ur ql Negative Negative [facility] Ketones, ur Negative Negative [facility] Bilirubin, ur Negative Negative [facility] Blood, ur Negative Negative [facility] Urobilinogen, ur <2.0 <2.0 mg/dL [facility] Nitrite, ur Negative Negative [facility] Leukocyte esterase, ur 3+(A) Negative [facility] UA reflex comment Reflex to microscopic UA will be performed. [facility] Urine 12/07/2023 2:45 PM CDT 12/07/2023 3:51 PM CDT Michael Mejia MD LAB URINE ORD ERABLES Final Result Performing Organization Address City/[facility]/ZIP Co de Phone Number [facility] Department [place] [address] * (ABNORMAL) CBC with auto differential (12/07/2023 2:45 PM CDT) WBC 7.6 3.8 - 9.9 K/cumm Hgb 13.5 11.9 - 15.5 g/dL [facility] Hct 42.1 35.6 - 45.5 % [facility] Plt 355 150 - 400 K/cumm [facility] MPV 9.3 9.1 - 12.3 fL [facility] RBC 4.56 3.90 - 5.20 M/cumm [facility] MCV 92.3 81.3 - 96.4 fL [facility] MCH 29.6 27.1 - 33.3 pg [facility] MCHC 32.1(L) 32.3 - 35.7 g/dL [facility] RDW CV 14.1 11.1 - 14.9 % [facility] RDW SD 48.0 35.7 - 48.1 fL [facility] NRBC abs 0.00 0.00 - 0.01 K/cumm [facility] Blood 12/07/2023 2:45 PM CDT 12/07/2023 3:27 PM CDT Michael Mejia MD LAB BLOOD ORD ERABLES Final Result Performing Organization Address City/[facility]/ZIP Co de Phone Number [facility] Department [place] [address] * Protein / creatinine ratio, urine, random (12/07/2023 2:45 PM CDT) Pathologist [facility] Protein, ur, quant 6.4 mg/dL Comment: Interpretive Data No reference range established. Current interpretive data was last revised 2018. Creatinine Ur 77.4 mg/dL [facility] Comment: Interpretive Data No reference range established. Current interpretive data was last revised 2018. Protein/creatinin e ratio 82.3 0.0 - 180.0 mg/g CR [facility] Urine 12/07/2023 2:45 PM CDT 12/07/2023 3:57 PM CDT Michael Mejia MD LAB URINE ORD ERABLES Final Result Performing Organization Address [facility] Co de Phone Number [facility] [place] [address] * Albumin Creatinine Ratio, Urine (12/07/2023 2:45 PM CDT) [facility] Albumin Ur <12.0 mg/L Comment: Interpretive Data No reference range established. Current interpretive data was last revised 2018. Creatinine Ur 77.4 mg/dL [facility] Comment: Interpretive Data No reference range established. Current interpretive data was last revised 2018. Albumin Creatinine Ratio, Ur <16 1 - 29 mg/g [facility] Urine 12/07/2023 2:45 PM CDT 12/07/2023 3:57 PM CDT Michael Mejia MD LAB URINE ORD ERABLES Final Result Performing Organization Address [facility] Co de Phone Number [facility] [place] [address] * Vitamin D 25 hydroxy (12/07/2023 2:45 PM CDT) [facility] Vitamin D 25-OH 57 30 - 80 ng/mL Blood 12/07/2023 2:45 PM CDT 12/07/2023 3:27 PM CDT Michael Mejia MD LAB BLOOD ORD ERABLES Final Result Performing Organization Address [facility] Co de Phone Number [facility] [place] [address] * Urinalysis, microscopic only (12/07/2023 2:45 PM CDT) Pathologist [facility] WBC, ur 0-5 0 - 5 /HPF RBC, ur 0-2 0 - 2 /HPF [facility] Epithelial cells, squamous, ur 1-5 0 - 5 /HPF [facility] Hyaline casts, ur 1-5 0 - 10 /LPF [facility] Urine 12/07/2023 2:45 PM CDT 12/07/2023 3:51 PM CDT Michael Mejia MD LAB URINE ORD ERABLES Final Result Performing Organization Address [facility]/ZIP Co de Phone Number [facility] [place] [address] * PTH (12/07/2023 2:45 PM CDT) Pathologist [facility] PTH 52 15 - 65 pg/mL Blood 12/07/2023 2:45 PM CDT 12/07/2023 3:27 PM CDT Michael Mejia MD LAB BLOOD ORD ERABLES Final Result Performing Organization Address City/[facility]/ZIP Co de Phone Number [facility] [place] [address] * (ABNORMAL) Renal function panel (12/07/2023 2:45 PM CDT) Sodium 142 135 - 145 mmol/L Potassium, pl 4.5 3.3 - 4.9 mmol/L [facility] Chloride 104 97 - 110 mmol/L [facility] CO2 29 22 - 32 mmol/L [facility] Anion gap 9 2 - 15 mmol/L [facility] BUN 35(H) 6 - 25 mg/dL [facility] Creatinine 1.76(H) 0.60 - 1.10 mg/dL [facility] Glucose 109 70 - 199 mg/dL [facility] Comment: Interpretive Data Fasting glucose >/= 126 mg/dl is diagnostic for diabetes. ?? Fasting is defined as no caloric intake for at least 8 hours. Fasting glucose between 100 mg/dl to 125 mg/dl is diagnostic of prediabetes. In a patient with classic symptoms of hyperglycemia or hyperglycemic crisis, a random glucose >/= 200 mg/dl is diagnostic for diabetes. In the absence of unequivocal hyperglycemia, results should be confirmed by repeat testing. The classification and Diagnosis of Diabetes Diabetes Care 2021; 46: S19-S40. Current interpretive data was last revised 2022. Calcium 9.7 8.5 - 10.3 mg/dL [facility] Phosphorus, pl 3.7 2.3 - 4.5 mg/dL [facility] Albumin 4.1 3.5 - 5.0 g/dL [facility] Blood 12/07/2023 2:45 PM CDT 12/07/2023 3:27 PM CDT Michael Mejia MD LAB BLOOD ORD ERABLES Final Result [facility] Department [place] [address] from Last 3 Months Insurance MEDICARE [facility] [employer] MEDICARE [facility] [employer] MEDICARE [employer] Care Teams Foreign Policy Officer Relationship Specialty Start Date End Date Rosmery Rico MD [address] [address] PCP - General Family Medicine 10/06/23
--- OUTSIDE RECORDS SUMMARY | 2024-03-08 10:36 | XMS_ITS | Referral Summary ---
Author Organization [facility] Address [address] [place] [address] Care Team Providers Care Sandstone Splitter Name Role Phone Rosmery Rico MD Primary Care Provider [phone] Encounters Date Type Department Care Team Description 12/07/2023 5:00 PM CDT Lab [facility] Advanced Medicine ([facility]) [address] [place] [phone] CKD stage 3b, GFR 30-44 ml/min (HCC) 12/07/2023 3:40 PM CDT Office Visit [facility] Nephrology [address] [place] [address] 5th [place] [address] [place] [phone] CKD stage 3b, GFR 30-44 ml/min ([facility]) (Primary Dx); Renal osteodystrophy from Last 3 Months Allergies Active Allergy Reactions Criticality Noted Date [...] 01/25/2023 Assessment & Plan (01/25/2023 11:14 AM SENIOR CORE JAVA DEVELOPER): Atrovent 2 sprays into each nostril while looking down over the sink, do not sniff in or blow nose after use for at least 30 minutes, about 30 minutes before a meal Xerostomia 01/25/2023 Assessment & Plan (01/25/2023 11:14 AM SENIOR CORE JAVA DEVELOPER): Finish work up for Sjorgren syndrome started [...] Overview (05/13/2016): ESOPHAGEAL REFLUX 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/22/2011 Immunizations Name Administration Dates Next Due Influenza, Trivalent, IM (MDV) 11/27/2008 Pneumococcal Polysaccharide PPV23 04/25/2007 Tdap 08/16/2006 ZOSTER LIVE 03/06/2009 Social History Tobacco Use Types Packs/Day Years Used Date Smoking Tobacco: Former Smokeless Tobacco: Never Tobacco Cessation:Counseling Given: Not Answered Alcohol Use Standard Drinks/Week Comments Yes 2 (1 standard drink = 0.6 oz pur e alcohol) Comments Unknown Sex and Gender Information Value Date Recorded Sex Assigned at Not on file Legal Sex Female 11:53 PM SENIOR CORE JAVA DEVELOPER Gender Identity Not on file Sexual Orientation Not on file Last Filed Vital Signs Vital Sign Reading Time Taken Comments Blood Pressure 154/65 12/07/2023 4:05 PM CDT Pulse 80 12/07/2023 4:05 PM CDT Temperature 36.4 ??C (97.5 ??F) 01/25/2023 10:[address] Respiratory Rate - - Oxygen Saturation 96% 01/25/2023 10:41 AM SENIOR CORE JAVA DEVELOPER Inhaled Oxygen Concentration - - Weight 60.8 kg (134 lb) 12/07/2023 4:05 PM CDT Height 157.5 cm (5' 2 ) 12/07/2023 4:05 PM CDT Body Mass Index 24.51 12/07/2023 4:05 PM CDT Plan of Treatment Not on file Procedures Procedure Name Priority Date/Time Associated Diagnosis [...] of Race in Diagnosing Kidney Disease, JASN 2020). The CKD-EPI equation should not be used for patients with unstable renal function and has not been validated in children and those over 70. Current interpretive data was last reviewed 2020. Blood 12/07/2023 2:45 PM CDT 12/07/2023 3:33 PM CDT us Michael Mejia MD LAB BLOOD ORD ERABLES Final Result [facility] Department [place] [address] * Differential, auto (12/07/2023 2:45 PM CDT) Neutrophil abs 4.8 1.5 - 6.5 K/cumm Imm gran abs 0.0 0.0 - 0.1 K/cumm [facility] Lymphocyte abs 1.6 0.8 - 3.3 K/cumm [facility] Monocyte abs 0.7 0.2 - 0.8 K/cumm [facility] Eosinophil abs 0.3 0.0 - 0.5 K/cumm [facility] Basophil abs 0.1 0.0 - 0.1 K/cumm [facility] Neutrophil pct 63.4 % [facility] Comment: Interpretive Data Percent cell count reference ranges are not reported, since discordance with absolute values may lead to misinterpretation of CBC data. Current Interpretive Data was last revised on 2017. Imm gran pct 0.5 % [facility] Comment: Interpretive Data Percent cell count reference ranges are not reported, since discordance with absolute values may lead to misinterpretation of CBC data. Current Interpretive Data was last revised on 2017. Lymphocyte pct 21.1 % [facility] Comment: Interpretive Data Percent cell count reference ranges are not reported, since discordance with absolute values may lead to misinterpretation of CBC data. Current Interpretive Data was last revised on 2017. Monocyte pct 9.3 % [facility] Comment: Interpretive Data Percent cell count reference ranges are not reported, since discordance with absolute values may lead to misinterpretation of CBC data. Current Interpretive Data was last revised on 2017. Eosinophil pct 4.5 % [facility] Comment: Interpretive Data Percent cell count reference ranges are not reported, since discordance with absolute values may lead to misinterpretation of CBC data. Current Interpretive Data was last revised on 2017. Basophil pct 1.2 % [facility] Comment: Interpretive Data Percent cell count reference ranges are not reported, since discordance with absolute values may lead to misinterpretation of CBC data. Current Interpretive Data was last revised on 2017. Blood 12/07/2023 2:45 PM CDT 12/07/2023 3:27 PM CDT us Michael Mejia MD LAB BLOOD ORD ERABLES Final Result [facility] Department [place] [address] * (ABNORMAL) Urinalysis reflex to microscopic (12/07/2023 2:45 PM CDT) Color, ur Straw Yellow Clarity, ur Clear Clear [facility] Specific gravity, ur 1.015 1.003 - 1.030 [facility] pH, urine 6.0 [facility] Comment: Interpretive Data ? Urine pH is affected by diet, medications, systemic acid-base disturbances, and renal tubular function. ??pH may affect urinary stone formation. ??For example, urine pH below 6.0 may help reduce the tendency for calcium phosphate stones and pH greater than 6.0 may reduce the tendency for uric acid stone formation. Source: [facility] Current Interpretive Data was last revised on 2017 Protein, ur ql Negative Negative [facility] Glucose, ur ql Negative Negative [facility] Ketones, ur Negative Negative [facility] Bilirubin, ur Negative Negative [facility] Blood, ur Negative Negative [facility] Urobilinogen, ur <2.0 <2.0 mg/dL [facility] Nitrite, ur Negative Negative [facility] Leukocyte esterase, ur 3+(A) Negative [facility] UA reflex comment Reflex to microscopic UA will be performed. [facility] Urine 12/07/2023 2:45 PM CDT 12/07/2023 3:51 PM CDT Michael Mejia MD LAB URINE ORD ERABLES Final Result [facility] Department [place] [address] * (ABNORMAL) CBC with auto differential (12/07/2023 2:45 PM CDT) [facility] WBC 7.6 3.8 - 9.9 K/cumm Hgb 13.5 11.9 - 15.5 g/dL [facility] Hct 42.1 35.6 - 45.5 % [facility] Plt 355 150 - 400 K/cumm [facility] MPV 9.3 9.1 - 12.3 fL [facility] RBC 4.56 3.90 - 5.20 M/cumm [facility] MCV 92.3 81.3 - 96.4 fL [facility] MCH 29.6 27.1 - 33.3 pg [facility] MCHC 32.1(L) 32.3 - 35.7 g/dL [facility] RDW CV 14.1 11.1 - 14.9 % [facility] RDW SD 48.0 35.7 - 48.1 fL [facility] NRBC abs 0.00 0.00 - 0.01 K/cumm [facility] Blood 12/07/2023 2:45 PM CDT 12/07/2023 3:27 PM CDT Michael Mejia MD LAB BLOOD ORD ERABLES Final Result Performing Organization Address [facility] Co de Phone Number [facility] [place] [address] * Protein / creatinine ratio, urine, random (12/07/2023 2:45 PM CDT) Protein, ur, quant 6.4 mg/dL Comment: Interpretive Data No reference range established. Current interpretive data was last revised 2018. Creatinine Ur 77.4 mg/dL [facility] Comment: Interpretive Data No reference range established. Current interpretive data was last revised 2018. Protein/creatinin e ratio 82.3 0.0 - 180.0 mg/g CR [facility] Urine 12/07/2023 2:45 PM CDT 12/07/2023 3:57 PM CDT us Michael Mejia MD LAB URINE ORD ERABLES Final Result Performing Organization Address City/[facility]/ZIP Co de Phone Number [facility] [place] [address] * Albumin Creatinine Ratio, Urine (12/07/2023 2:45 PM CDT) Albumin Ur <12.0 mg/L Comment: Interpretive Data No reference range established. Current interpretive data was last revised 2018. Creatinine Ur 77.4 mg/dL [facility] Comment: Interpretive Data No reference range established. Current interpretive data was last revised 2018. Albumin Creatinine Ratio, Ur <16 1 - 29 mg/g [facility] Urine 12/07/2023 2:45 PM CDT 12/07/2023 3:57 PM CDT Michael Mejia MD LAB URINE ORD ERABLES Final Result [facility] Department [place] [address] * Vitamin D 25 hydroxy (12/07/2023 2:45 PM CDT) Vitamin D 25-OH 57 30 - 80 ng/mL Blood 12/07/2023 2:45 PM CDT 12/07/2023 3:27 PM CDT Michael Mejia MD LAB BLOOD ORD ERABLES Final Result Performing Organization Address City/[facility]/ZIP Co de Phone Number [facility] [place] [address] * Urinalysis, microscopic only (12/07/2023 2:45 PM CDT) WBC, ur 0-5 0 - 5 /HPF RBC, ur 0-2 0 - 2 /HPF [facility] Epithelial cells, squamous, ur 1-5 0 - 5 /HPF [facility] Hyaline casts, ur 1-5 0 - 10 /LPF [facility] Urine 12/07/2023 2:45 PM CDT 12/07/2023 3:51 PM CDT Michael Mejia MD LAB URINE ORD ERABLES Final Result Performing Organization Address City/[facility]/ZIP Co de Phone Number [facility] Department [place] [address] * PTH (12/07/2023 2:45 PM CDT) PTH 52 15 - 65 pg/mL Blood 12/07/2023 2:45 PM CDT 12/07/2023 3:27 PM CDT Michael Mejia MD LAB BLOOD ORD ERABLES Final Result [facility] Department [place] [address] * (ABNORMAL) Renal function panel (12/07/2023 2:45 PM CDT) Pathologist [facility] Sodium 142 135 - 145 mmol/L Potassium, pl 4.5 3.3 - 4.9 mmol/L [facility] Chloride 104 97 - 110 mmol/L [facility] CO2 29 22 - 32 mmol/L [facility] Anion gap 9 2 - 15 mmol/L [facility] BUN 35(H) 6 - 25 mg/dL [facility] Creatinine 1.76(H) 0.60 - 1.10 mg/dL [facility] Glucose 109 70 - 199 mg/dL [facility] Comment: Interpretive Data Fasting glucose >/= 126 [...] classification and Diagnosis of Diabetes Diabetes Care 202; 46: S19-S40. Current interpretive data was last revised 2022. Calcium 9.7 8.5 - 10.3 mg/dL [facility] Phosphorus, pl 3.7 2.3 - 4.5 mg/dL [facility] Albumin 4.1 3.5 - 5.0 g/dL [facility] Blood 12/07/2023 2:45 PM CDT 12/07/2023 3:27 PM CDT Michael Mejia MD LAB BLOOD ORD ERABLES Final Result [facility] Department [place] [address] from Last 3 Months Insurance MEDICARE [employer] MEDICARE [facility] Insurity MEDICARE [employer] Care Teams Sandstone Splitter Relationship Specialty Start Date End Date Rosmery Rico MD [address] [place] [address] PCP - General Family Medicine 10/06/23
--- OUTSIDE RECORDS SUMMARY | 2024-03-08 10:36 | XMS_ITS | Continuity of Care Document ---
Author Organization [facility] Address [address] [place] [address] Phone Care Team Providers Care Toxics Program Officer Name Role Phone Steve Linares MD Unavailable Unavailable Medications Medication Instructions Dosage Effective Dates (start - stop) Status Comments Medrol (Nathanael) 4 mg Tabs in a Dose Pack As Directed - Active as directed po Procedures Procedure Date Office/outpatient visit,est, mod 2009 Drain/inject major jointor bursa 2009 Depo Medrol Methylprednisolone 40 MG inj X-ray exam of hip, complete X-ray exam of pelvis, 1-2 views 010 Postop followup visit Removal of deep support implant 009 Postop followup visit X-ray exam of finger(s),2+ views 2008 Postop followup visit Postop followup visit Fusion of finger joint Repair/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 Office/outpatient visit,est, low 2008 Drain/inject small jointor bursa 2008 Depo Medrol Methylprednisolone 40 MG inj Postop followup visit Removal of deep support implant 008 Postop followup visit X-ray exam of hand, 3+ views Removal of deep support implant 008 Postop followup visit Application of forearm cast Aug-13-2008 Cast Supplies, Short Arm, Adult 11yrs +, Fiberglass Mallet Finger Splint Omar Loops Repair/revise wrist joint(s) 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 Partial removal of finger bone 08 Partial removal of finger bone 08 Partial removal of finger bone 08 Partial removal of finger bone 08 Office/outpatient visit,est, mod 2007 Office/outpatient visit,est, mod 2007 Wrist Hand Finger Orthosis ,no joint, pr efabricated, Any Type Wrist Hand Finger Orthosis ,no joint, pr efabricated, Any Type Removal of deep support implant 007 Postop followup visit Postop followup visit Stack Splint, Finger Postop followup visit Fusion of finger joint Fusion of added finger joint Fusion of added finger joint Office/outpatient visit,est, mod 2006 X-ray exam of hand, 3+ views X-ray exam of hand, 3+ views Office/outpatient visit,est, low 2006 X-ray exam of ankle, complete 7 Office/outpatient visit,est, low 2006 Office/outpatient visit,est, mod 2005 X-ray exam of ankle, complete 6 Office/outpatient visit,est, mod 2005 X-ray exam of ankle, complete 6 Postop followup visit Postop followup visit X-ray exam of ankle, complete 6 Postop followup visit Arthrodesis, subtalar Postop followup visit Office/outpatient visit,est, mod 2005 X-ray exam of ankle, complete 6 X-ray exam of foot, 2 views Advance Directives Directive Yes / No Effective Date File Name No Information Encounters Encounter Description Practice Location Reason(s) For Visit Diagnoses Date Provider Providers Copied on Encounter [facility], [address] [address], [place], [place], [id number], [place] tel:[phone] [facility] No Information 0 Vijay Wilson. [address] [facility] [facility] [address], [place], [place], [address], [place]. tel:[phone] Office/outpat ient visit,est, mod [facility], [address] [facility] [address], [place], [place], [address], [place] tel:[phone] [facility] JOINT PAIN-PELVISE NTHESOPATHY OF HIP 0 Vijay Wilson. [address] [facility] [address], [place], [place], [address], [place]. tel:[phone] Referring Provider: Steve Santos, [address] [address], [place], [address] . tel:[phone] [facility], [address] [facility] [address], [place], [place], [address], [place] tel:[phone] [facility] No Information 9 Hansel Skinner. [address] [facility] [facility] [address], [place], [place], [address], [place]. tel:[phone] Referring Provider: Brody Escalera, [address] [facility] [address] [facility] [place], [address] . tel:[phone] [facility], [address] [facility] [address], [place], [place], [address], [place] tel:[phone] [facility] No Information 9 Hansel Skinner. [address] [facility] [facility] [address], [place], [place], [address], [place]. tel:[phone] Referring Provider: Brody Escalera, [address] [facility] [address] [facility], [place], [address] . tel:[phone] [facility], [address] [facility] [address], [place], [place], [address], [place] tel:[phone] [facility] No Information 9 Hansel Brody. [address] [facility], [place], [place], [address], [place]. tel:[phone] Referring Provider: Brody Escalera, [address] [facility] [address], [place], [address] . tel:[phone] [facility], [address] [facility] [address], [place], [place], [address], [place] tel:[phone] [facility] No Information 9 Hansel Brody. [address] [facility], [place], [place], [address], [place]. tel:[phone] [facility], [address] [facility] [address], [place], [place], [address], [place] tel:[phone] [facility] No Information 9 Hansel Brody. [address] [facility], [place], [place], [address], [place]. tel:[phone] [facility], [address] [facility] [address], [place], [place], [address], [place] tel:[phone] [facility] No Information 9 Hansel Brody. [address] [facility], [address], [place], [place], [address], [place]. tel:[phone] Referring Provider: Brody Escalera, [address] [facility] [address], [place], [address] . tel:[phone] Office/outpat ient visit,est, low [facility], [address] [facility] [address], [place], [place], [address], [place] tel:[phone] [facility] No Information 9 Hansel Skinner. [address] [facility], [address], [place], [place], [address], [place]. tel:[phone] Referring Provider: Brody Escalera, [address] [facility] [address], [place], [address] . tel:[phone] [facility], [address] [facility] [address], [place], [place], [address], [place] tel:[phone] [facility] No Information Sep-3 0-200 8 Strecker Brody. [address] [facility], [address], [place], [place], [address], [place]. tel:[phone] [facility], [address] [facility] [address], [place], [place], [address], [place] tel:[phone] [facility] No Information Sep-2 2-200 8 Streesrohit Skinner. [address] [facility], [address], [place], [place], [address], [place]. tel:[phone] [facility], [address] [facility] [address], [place], [place], [address], [place] tel:[phone] [facility] No Information Sep-1 6-200 8 Strecker Brody. [address] [facility], [address], [place], [place], [address], [place]. tel:[phone] Referring Provider: Brody Escalera, [address] [facility] [address], [place], [address] . tel:[phone] [facility], [address] [facility] [address], [place], [place], [address], [place] tel:[phone] [facility] No Information Aug-2 7-200 8 Hansel Skinner. [address] [facility], [address], [place], [place], [address], [place]. tel:[phone] Referring Provider: Brody Escalera, [address] [facility] [address], [place], [address] . tel:[phone] [facility], [address] [facility] [address], [place], [place], [address], [place] tel:[phone] [facility] No Information 3-200 8 Strecker Brody. [address] [facility], [address], [place], [place], [address], [place]. tel:[phone] [facility], [address] [facility] [address], [place], [place], [address], [place] tel:[phone] [place] [address] No Information 0 6-200 8 Strecker Brody. [address] [facility] [facility] [address], [place], [place], [address], [place]. tel:[phone] Office/outpat ient visit,est, [facility], [address] [facility] [address], [place], [place], [address], [place] tel:[phone] [facility] No Information 5-200 8 Strecker Brody. [address] [facility] [facility] [address], [place], [place], [address], [place]. tel:[phone] Office/outpat ient visit,est, [facility], [address] [address], [place], [place], [address], [place] tel:[phone] [facility] No Information 2 3-200 8 Strecker Brody. [address] [facility], [facility] [address], [place], [place], [address], [place]. tel:[phone] [facility], [address] [facility] [address], [place], [place], [address], [place] tel:[phone] [place] [address] No Information Sep-2 0-200 7 Strecker Brody. [address] [facility] [facility] [address], [place], [place], [address], [place]. tel:[phone] [facility], [address] [facility] [address], [place], [place], [address], [place] tel:[phone] [facility] No Information 7 Hannahcker Brody. [address] [facility], [address], [place], [place], [address], [place]. tel:[phone] [facility], [address] [facility] [address], [place], [place], [address], [place] tel:[phone] [facility] No Information 2 8 7 Hannahcker Brody. [address] [facility], [address], [place], [place], [address], [place]. tel:[phone] [facility], [address] [facility] [address], [place], [place], [address], [place] tel:[phone] [facility] No Information 7 Ryaner Brody. [address] [facility], [facility] [address], [place], [place], [address], [place]. tel:[phone] [facility], [address] [address], [place], [place], [address], [place] tel:[phone] [place] [address] No Information 7 Hansel Skinner. [address] [facility], [address] [address], [place], [place], [address], [place]. tel:[phone] Office/outpat ient visit,est, [facility], [address], [address], [place] tel:[phone] [facility] No Information 7 Hansel Skinner. [address] [facility], [facility] [address], [place], [place], [address], [place]. tel:[phone] Office/outpat ient visit,est, low [facility], [address] [address], [place], [place], [address], [place] tel:[phone] [facility] No Information 0 200 7 No Information Office/outpat ient visit,est, low [facility], [address] [address], [place], [place], [address], [place] tel:[phone] [facility] No Information 8 7 No Information Office/outpat ient visit,est, mod [facility], [address] [facility] [address], [place], [place], [address], [place] tel:[phone] [facility] No Information 6 No Information Office/outpat ient visit,est, mod [facility], [address] [address], [place], [place], [address], [place] tel:[phone] [facility] No Information 6 No Information [facility], [address] [address], [place], [place], [address], [place] tel:[phone] [facility] No Information 6 No Information [facility], [address] [address], [place], [place], [address], [place] tel:[phone] [facility] No Information 6 No Information [facility], [address] [address], [place], [place], [address], [place] tel:[phone] [facility] No Information 6 No Information [facility], [address] [facility] [address], [place], [place], [address], [place] tel:[phone] [place] [address] No Information 6 No Information [facility], [address] [address], [place], [place], [address], [place] tel:[phone] [facility] No Information 6 No Information Office/outpat ient visit,est, mod [facility], [address] [address], [place], [place], [address], [place] tel:[phone] [facility] No Information 6 No Information Family History Family Member Type Diagnosis Age At Onset No Information Payers Payer name Insurance type Covered republican ID Authoriza tion(s) No Information Social History Type Description Quantity Date Captured Comments Sex Female Smoking Status No Information Chief Complaint And Reason For Visit No Information Reason For Referral Reason For Referral No Information History Of Present Illness Encounter Date Complaint History Of Prese nt Illness No Information Functional Status Date Functional Assessmen t No Information Instructions Date Instruction Additional Infor mation No Information Assessments Type Assessment Date No Information Patient Care Teams Name Effective Dates (start - stop) Status Members No Information
--- OUTSIDE RECORDS SUMMARY | 2024-03-08 10:36 | XMS_ITS | Encounter Summary ---
Author Organization [facility] Address [address] [place] [address] Phone Care Team Providers Care Glassware Defect Repairer Name Role Phone Vincent Costello MD Primary Care Provider [phone] Patricia Mcginnis MD Unavailable [phone] Kandice Rollins RULING MACHINE OPERATOR Unavailable Unavailable Belinda Ha DO Unavailable [phone] Paige Goldman APRN, STOCK MOVER Unavailable Rosmery Rico MD Primary Care Provider [phone] Reason for Visit * Reason Comments Medication Refill Encounter Details Date Type Department Care Team (Late st Contact Info) Description 08/18/2021 Refill [facility] - Primary Care - [place] [address] [place] [address] Vincent Costello MD [address] [place] [address] Medication Refill Social History Tobacco [...] suspected to have Coronavirus/COVID-19? No / Unsure 08/17/2021 9:52 AM CDT documented as of this encounter Miscellaneous Notes * Telephone Encounter - Alia Black RN - 08/18/2021 11:02 AM CDT levothyroxine (SYNTHROID) 25 MCG Tablet 90 Tablet 3 11/23/2020 Refill too soon documented in this encounter Plan of Treatment Not on file documented as of this encounter Visit Diagnoses Not on filedocumented in this encounter Additional Health Concerns Infection Onset Date Last Indicated Resolved Time COVID - 19 12/30/2021 12/30/2021 01/03/2022 11:0 4 AM CPC Assessment Noted Time PHQ-9 Depression Total Score: 0 06/01/19 19 9:00 AM CDT documented as of this encounter Care Teams Glassware Defect Repairer Relationship Specialty Start Date End Date Vincent Costello MD [address] [place] [address] PCP - General Internal Medicine 09/30/15 08/31/23 Rosmery Rico MD [address] [place] [address] PCP - General Family Medicine 09/01/23 Patricia Mcginnis MD [address] [facility]Y, [address] [address] Consulting Physician Nephrology 05/03/16 Kandice Rollins NP [address] [facility] NE[facility], [address] [address] Nurse Practitioner Psychiatry 01/30/20 Belinda HaeDO [address] [facility] [address] Char Escalera [address] [address] Consulting Physician Otolaryngology 02/24/23 Paige Goldman APRN, STOCK MOVER [address] [place] [address] Nurse Practitioner Advanced Practice Nurse 01/26/23 Quang Rollins MD Consulting Physician Psychiatry 11/03/16 documented as of this encounter
--- OUTSIDE RECORDS SUMMARY | 2024-03-08 10:36 | XMS_ITS | Continuity of Care Document ---
Author Organization [facility] Address [address] [place] [address] [place] [address] Phone Care Team Providers Care Ship Carpenter Name Role Phone Venessa Todd MD Unavailable Unavailable Advance Directives Directive Yes / No Effective Date File Name No Information Encounters Encounter Description Practice Location Reason(s) For Visit Diagnoses Date Provider Providers Copied on Encounter [facility], [address], [place], [place], [address], tel:[phone] [facility] No Information Apr-0 5-200 5 Peyton Clifford. [address] [facility] [place], [address], [place]. tel:[phone] Referring Provider: Prosper Son OD, [facility] [address] [place], [address]. tel:[phone] Family History Family Member Type Diagnosis Age At Onset No Information Payers Payer name Insurance type Covered republican ID Authoriza tion(s) [employer] CI [id number] Social History Type Description Quantity Date Captured [...]
--- OUTSIDE RECORDS SUMMARY | 2024-03-08 10:36 | XMS_ITS | Patient Health Summary ---
Author Organization [facility] Address [address] [address] Care Team Providers Care Sheet Metal Roofer Name Role Phone Rigo Grier MD, Ritchie Bui Primary Care Provi tarsha Unavailable Note from [facility],non-owned Affiliates and Associated Physician Practices is amultiple site organization consisting of ambulatory clinics and hospital sitesin [place], [place], [place] and [place]. This disclosure is being madepursuant to the Care Everywhere program and may not contain all information available regarding this patient. Last updated 17.[facility] Allergies * Sulfa Drugs(Rash) -Medium Criticality Medications * Be aware that medications may not be up to date on this document. Alwaysverify current medications with the patient. * CALCIUM CARBONATE-VITAMIN D PO Take 1,000 mg by mouth * diclofenac sodium (VOLTAREN) 1 % gel(Started 06/15/2016) Apply 4 (four) g to affected area * DULoxetine (CYMBALTA) 60 MG capsule(Started 12/23/2016) Take 2 (two) capsules by mouth * traZODone (DESYREL) 50 MG tablet(Started 01/05/2018) Take 1 (one) tablet by mouth * levothyroxine (SYNTHROID) 25 MCG tablet(Started 05/23/2019) TAKE 1 TABLET BY MOUTH EVERY DAY * traMADol (ULTRAM) 50 MG tablet(Started 08/13/2019) TAKE 1 TABLET BY MOUTH EVERY 8 HOURS NEEDED FOR MODERATE TO SEVERE PAIN * amLODIPine (NORVASC) 10 MG tablet(Started 05/03/2017) Take 1 (one) tablet by mouth once daily * ARIPiprazole (ABILIFY) 2 MG tablet(Started 08/13/2019) TAKE 1 TABLET(2 MG) BY MOUTH DAILY * buPROPion XL 24hr (WELLBUTRIN-XL) 300 MG tablet(Started 03/19/2020) Take 1 (one) tablet by mouth once daily * Cholecalciferol 25 MCG (1000 UT)(Started 01/10/2019) Take 1 (one) tablet by mouth once daily * Cyanocobalamin (B-12 PO) Take 1 tablet by mouth once daily * amoxicillin (AMOXIL) 500 MG capsule(Started 07/22/2020) Take 1 (one) capsule by mouth 3 times daily Active Problems Problem Noted Date Diagnosed Date VMR (vasomotor rhinitis) 01/30/2020 History of SCC (squamous cell carcinoma) of skin 09/24/2019 History of basal cell carcinoma 09/24/2019 Seborrheic keratosis 09/24/2019 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 kidney disease 018 CKD (chronic kidney disease) stage 3, GFR 30-59 ml/min 01/05/2018 Essential (primary) hypertension 01/05/2018 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 Hypothyroidism 04/01/2015 Arthritis 06/22/2013 Depression 06/22/2013 Gastroesophageal reflux disease 06/22/2013 Generalized osteoarthritis 06/22/2013 Hypercholesterolemia 06/22/2013 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/22/2011 Social History Tobacco Use Types Packs/Day Years [...] Mass Index 26.45 10/18/2019 9:22 AM CDT Procedures * MI CHMSRG MOHS MG TQ H/N/H/F/G 1ST STAG 5 BLOC(Performed 10/18/2019) Performed for Basal cell carcinoma of parietal region of scalp * MI REPR CMPL WND HEAD,FAC,HAND 2.6-7.5(Performed 10/18/2019) Performed for Basal cell carcinoma of parietal region of scalp * MI TANGNTL BX SKIN SINGLE LES(Performed 09/24/2019) Performed for Neoplasm of uncertain behavior of skin * DERMATOPATHOLOGY(Performed 09/24/2019) Performed for Neoplasm of uncertain behavior of skin * DERMATOPATHOLOGY(Performed 06/21/2013) * DERMATOPATHOLOGY(Performed 02/22/2011) * PAP SMEAR 1 SLIDE(Performed 02/06/1998) Results * MI REPR CMPL WND HEAD,FAC,HAND 2.6-7.5, MI CHMSRG MOHS MG TQ H/N/H/F/G 1ST STAG 5 BLOC (10/18/2019 4:11 PM CDT) Narrative Paul Sanchez MD - 10/18/2019 4:11 PM CDT Paul Sanchez MD ? 11/28/2019 ??1:50 PM Date of Service: 10/18/2019 Surgery: Mohs micrographic surgery Indication: Tumor location Repair Type: complex Repair Size: 3.3cm Suture Material: 4-0 monocryl; 5-0 chromic gut Tumor Type: Basal cell carcinoma Location: right parietal scalp Derm-Path PreOp Size: ??0.8 x 0.9 cm. PostOp Size: ??1.4 x1.4 cm. Mohs Level of Defect: fat Procedure: The patient was placed supine on the operating table. ??The cancer was identified, outlined with a marker, and verified by the patient. ??The entire surgical field was prepped with Hibiclens. ?? The surgical site was anesthetized using Lidocaine 1% with epinephrine 1:100,000 buffered with sodium bicarbonate 8.4% in a 1:10 ratio. The area of clinically apparent tumor was debulked with 2mm curette. The layer of tissue was then surgically excised using a #15 blade and was then transferred onto a specimen sheet maintaining the orientation of the specimen. Hemostasis was obtained using monopolar electrodessication. The wound site was then covered with a dressing while the tissue samples were processed for examination. The excised tissue was transported to the [facility] histology laboratory maintaining the tissue orientation. ??The tissue specimen was relaxed so that the entire surgical margin was in a a single horizontal plane for sectioning andinked for precise mapping. ??A precise reference map was drawn to reflect the sectioning of the specimen, colored inking of the margins, and orientation on the patient. ??The tissue was processed using horizontal sectioning ofthe base and continuous peripheral margins. ??The histopathologic sections were reviewed in conjunction with the reference map. Total blocks: ??1 Total slides: ?? 3 No additional tumor was identified on microscopic examination, therefore Mohs surgery was complete. Reconstruction: Complex Closure Primary Surgeon : Laura Asp Net Programmer Surgeon : Braulio The patient was taken to the operative suite and placed on the operating room table. ??The defect was identified. ??Appropriate markings were made with a marking pen to plan the repair. ??The area was infiltrated with Lidocaine 1% with epinephrine 1:100,000 buffered with sodium bicarbonate 8.4% in a 1:10 ratio and prepped with iodine and draped with sterile towels. The wound was debeveled and undermined widely. ??Cones were excised within relaxed skin tension lines on both sides of the defect. ??Hemostasis was obtained using monopolar electrodessication. The dermis and subcutaneous tissue were then approximated using buried vertical mattress sutures. ??The wound edges were then approximated additional buried sutures were placed in a similar fashion where needed. ??Percutaneous running sutures were carefully placed for maximum eversion and meticulous approximation. Repair Size: 3.3 cm Sutures Used: ??4-0 monocryl; 5-0 chromic gut The wound was cleansed with saline and ointment was applied along the wound surface. A sterile pressure dressing was applied. ??Wound care instructions were given verbally and in writing. ??The patient left the operating suite in stable condition. ??Patient was informed that additional refinement of the resulting surgical scar may be used as a second stage of this reconstruction. The Attending surgeon was present for the entire procedure and always immediately available. .Becki Ramsey MD [facility] Dermatologic Surgery Fellow Paul Sanchez MD PROCEDURE/MINOR SURG ICAL ORDERABLES * MI TANGNTL BX SKIN SINGLE LES (09/24/2019 3:56 PM CDT) Narrative Savanna Desai MD - 09/24/2019 3:56 PM CDT Savanna Desai MD ? 09/24/2019 ??3:57 PM Risks, benefits and alternatives to shave biopsy were discussed with the patient. Verbal consent was obtained. Location: right scalp 8 mm Skin prep: Alcohol Anesthesia: 1% lidocaine with epinephrine Hemostasis: Aluminum chloride Dressing and wound care discussed. Patient agrees to phone call for results and message if not available. Savanna Desai MD Savanna Desai MD PROCEDURE/MINOR SURG ICAL ORDERABLES * DERMATOPATHOLOGY (09/24/2019 12:00 AM CDT) Only the most recent of3 resultswithin the time period is included. Case Report Dermatopathology Report ? Case: [id number] ? Authorizing Provider: ??Savanna Desai MD ? Collected: ? 09/24/2019 12:00 AM ? Ordering Location: ? [facility] ? Received: ?09/25/2019 12:08 PM ? Dermatology ? Pathologist: ? Alivia Mendes MD ? Specimen: ?Skin, right parietal scalp ? 0 3:39 PM CDT DERMATOPATHOLOGY LABORATORY Final Diagnosis Specimen A. SKIN, right parietal scalp: BASAL CELL CARCINOMA, FRAGMENTS OF (C44.41) (see microscopic description and comment) 0 3:39 PM CDT DERMATOPATHOLOGY LABORATORY Clinical History R/O BCC. 0 3:39 PM CDT DERMATOPATHOLOGY LABORATORY Gross Description Specimen A: Received is one formalin filled container labeled with the patient's name and designated right parietal scalp. The specimen consists of a shave biopsy (3 pieces) measuring 0i8r7wt, 0c8r0al, & 8u3d7nm. Jar 0. 0 3:39 PM CDT DERMATOPATHOLOGY LABORATORY Microscopic Description Specimen A. SKIN, right parietal scalp: The specimen consists of skin fragments with aggregates of basaloid cells, located within the superficial dermis, with high nuclear to cytoplasmic ratio and peripheral palisading. COMMENT: The small size and fragmented nature of the specimen limits subtyping of the lesion. 0 3:39 PM CDT DERMATOPATHOLOGY LABORATORY Disclaimer An external and internal positive and negative controls are appropriate for the histochemical, immunohistochemical and immunofluorescence stain(s) in this case (if any), except where stated explicitly. The performance characteristics of the stain(s) cited in this report were developed and its performance characteristic determined by the Dermatopathology Laboratory at [facility], directed by Dr. Julissa Howard. These tests need not be, and therefore are not, approved by the [place] Food and Drug Administration. The tests are used for clinical purposes. Billing Codes Specimen Charges Stain Charges 61143 1 0 3:39 PM CDT DERMATOPATHOLOGY LABORATORY Embedded Images 0 3:39 PM CDT DERMATOPATHOLOGY LABORATORY Pathology/Cytolog y TISSUE SPECIMEN FROM SKIN / Unknown 09/24/2019 09/25/2019 12:08 PM CDT Savanna Desai MD LAB - PATHOLOGY/CYTO LOGY ORDERABLES DERMATOPATHOLOGY LABORATORY [facility] - Department of Dermatology [facility]/[address] [phone] * (ABNORMAL) PAP SMEAR 1 SLIDE (02/06/1998 12:00 AM CONTRACT SERVICEMAN) HM Pap Smear Per pt: Normal [facility] Other (qualifier value) 02/06/1998 Narrative [facility] - 02/06/1998 12:00 AM CONTRACT SERVICEMAN This external order was created through the Results Console. Historical Provider LAB - PATHOLOGY/C YTOLOGY ORDERABLES [facility] Care Teams Sheet Metal Roofer Relationship Specialty Start Date End Date Ritchie Sierra Jr., MD PCP - General 11/30/17
--- OUTSIDE RECORDS SUMMARY | 2024-03-08 10:36 | XMS_ITS | Encounter Summary ---
Author Organization [facility] Address [address] [place] [address] Phone Care Team Providers Care Inventory Coordinator Name Role Phone Vincent Costello MD Primary Care Provider [phone] Patricia Mcginnis MD Unavailable [phone] Kandice Rollins TAPE SEWER Unavailable Unavailable Belinda Ha DO Unavailable [phone] Paige Goldman APRN, INSIDE SOLAR SALES CONSULTANT Unavailable Rosmery Rico MD Primary Care Provider [phone] Reason for Visit * Reason Comments Medication Refill Encounter Details Date Type Department Care Team (Late st Contact Info) Description 11/15/2021 Refill [facility] - Primary Care - [place] [address] [place] [address] Vincent Costello MD [address] [place] [address] Medication Refill Social History Tobacco [...] Telephone Encounter - Vincent Costello MD - 11/15/2021 1:01 PM CDT Refill request approved. * Telephone Encounter - Aislinn Larson RN - 11/15/2021 12:57 PM CDT Medication failed the protocol, provider to review and approve the medication order if appropriate. Requested Prescriptions Pending Prescriptions Disp Refills traMADol (ULTRAM) 50 MG Tablet [Pharmacy Med Name: TRAMADOL 50MG TABLETS] 28 Tablet Sig: TAKE 1 TABLET BY MOUTH EVERY 8 HOURS NEEDED FOR MODERATE TO SEVERE PAIN Not Delegated - Opioid Agonists Protocol Failed - 11/15/2021 12:41 PM Failed - This refill cannot be delegated Passed - Visit with relevant provider in past 12 months or upcoming 90 days Recent Visits Date Type Provider Dept 08/17/21 Office Visit Vincent Costello MD [facility] 03/08/21 Office Visit Vincent Costello MD [facility] 02/09/21 Office Visit Vincent Costello MD [facility] Showing recent visits within past 365 days [...] 19 12/30/2021 12/30/2021 01/03/2022 11:0 4 AM TAPEMAN Assessment Noted Time PHQ-9 Depression Total Score: 0 06/01/19 19 9:00 AM CDT documented as of this encounter Care Teams Inventory Coordinator Relationship Specialty Start Date End Date Vincent Costello MD [address] [place] [address] PCP - General Internal Medicine 09/30/15 08/31/23 Rosmery Rico MD [address] [place] [address] PCP - General Family Medicine 09/01/23 Patricia Mcginnis MD [address] DIV IM NEPHROLOGY, [address] [address] Consulting Physician Nephrology 05/03/16 Kandice Rollins NP [address] DIV IM NEPHROLOGY, [address] [address] Nurse Practitioner Psychiatry 01/30/20 Belinda Ha DO [address] [place] [address] Dr Char Escalera [address] [address] Consulting Physician Otolaryngology 02/24/23 Paige Goldman APRN, INSIDE SOLAR SALES CONSULTANT [address] [place] [address] Nurse Practitioner Advanced Practice Nurse 01/26/23 Quang Rollins MD Consulting Physician Psychiatry 11/03/16 documented as of this encounter
--- OUTSIDE RECORDS SUMMARY | 2024-03-08 10:36 | XMS_ITS | Encounter Summary ---
Author Organization [facility] Address [address] [place] [address] Phone Care Team Providers Care Sound Recording Technician Name Role Phone Vincent Costello MD Primary Care Provider [phone] Patricia Mcginnis MD Unavailable [phone] Kandice Rollins EXPANDER MACHINE OPERATOR Unavailable Unavailable Belinda Ha DO Unavailable [phone] Paige Goldman APRN, PLAYBACK OPERATOR Unavailable Rosmery Rico MD Primary Care Provider [phone] Reason for Visit * Reason Comments Medication Refill Encounter Details Date Type Department Care Team (Late st Contact Info) Description 07/31/2021 Refill [facility] - Primary Care - [place] [address] [place] [address] Vincent Costello MD [address] [place] [address] Medication Refill Social History Tobacco [...] encounter Miscellaneous Notes * Telephone Encounter - Aislinn Larson RN - 08/02/2021 8:21 AM CDT Refill request too soon. documented in this encounter Plan of Treatment Not on file documented as of this encounter Visit Diagnoses Not on filedocumented in this encounter Additional Health Concerns Infection Onset Date Last Indicated Resolved Time COVID - 19 12/30/2021 12/30/2021 01/03/2022 11:0 4 AM SOUND RECORDING TECHNICIAN Assessment Noted Time PHQ-9 Depression Total Score: 0 06/01/19 19 9:00 AM CDT documented as of this encounter Care Teams Sound Recording Technician Relationship Specialty Start Date End Date Vincent Costello MD [address] [place] [address] PCP - General Internal Medicine 09/30/15 08/31/23 Rosmery Rico MD [address] [place] [address] PCP - General Family Medicine 09/01/23 Patricia Mcginnis MD [address] DIV IM NEPHROLOGY, [address] [address] Consulting Physician Nephrology 05/03/16 Kandice Rollins NP [address] DIV IM NEPHROLOGY, [address] [address] Nurse Practitioner Psychiatry 01/30/20 Belinda HaeDO [address] [facility] Dr Char Escalera [address] [address] Consulting Physician Otolaryngology 02/24/23 Paige Goldman APRN, PLAYBACK OPERATOR [address] [place] [address] Nurse Practitioner Advanced Practice Nurse 01/26/23 Quang Rollins MD Consulting Physician Psychiatry 11/03/16 documented as of this encounter
--- OUTSIDE RECORDS SUMMARY | 2024-03-08 10:36 | XMS_ITS | Referral Summary ---
Author Organization [facility] Address [address] [place] [address] Care Team Providers Care Ticketer Name Role Phone Rigo Grier MD, Ritchie Bui Primary Care Provi tarsha Unavailable Source Comments [facility],non-owned Affiliates and Associated Physician Practices is amultiple site organization consisting of ambulatory clinics and hospital sitesin [place], [place], [place] and [place]. This disclosure is being madepursuant to the Care Everywhere program and may not contain all information available regarding this patient. Last updated 17.[facility] [employer] Allergies Active Allergy Reactions Criticality Noted Date [...] 06/22/2013 Overview (09/24/2019): Hypercholesterolemia 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/22/2011 Social History Tobacco Use [...] st Contact Info) Description 03/26/2024 1:30 PM TOE STAPLER Cosmetic Visit [facility] Dermatology [address], [facility] [address] [place] [address] Sandra Cartagena Update Information Care Teams Ticketer Relationship Specialty Start Date End Date Ritchie Sierra Jr., MD PCP - General 11/30/17
[2024-03-08 12:34] LABS: Dexamethasone Suppression Test 2.25 ug/dL
== END 2024-03-08 10:17 | disposition home or self-care (01) ==
PROVIDERS: PCP Family Medicine; Visit Provider Family Medicine
DX: R79.89 Other specified abnormal findings of blood chemistry (principal)
CPT/HCPCS: 36415; 82533

== ENCOUNTER 2024-11-22 10:21 | Observation (INO) | payer MEDICARE, SELFPAY ==
[2024-11-22] VITALS (29 sets, daily range): BP systolic 106–220; BP diastolic 64–105; PULSE 58–88; RESP 10–24; TEMP 36.6–36.9; O2SAT 93–100
--- NOTE | ~2024-11-22 | XR_ITS ---
Examination: XR chest 1V portable Clinical History: dizziness, cough Comparison: None Technique: Portable AP Findings: Heart size normal. Lungs clear. No acute bony abnormality. IMPRESSION: 1. No acute cardiopulmonary findings given portable technique. Reviewed, dictated and finalized at location R.
--- NOTE | ~2024-11-22 | CT_ITS ---
EXAMINATION: CT brain wo gregory, 11/22/2024 10:45 CDT HISTORY: fall COMPARISON: No comparisons available. Technique: Axial images obtained of the brain without contrast. One or more of the following dose reduction techniques were used: automated exposure control, adjustment of the mA and/or kV according to patient size, use of iterative reconstruction technique. Findings: No acute infarct or parenchymal hemorrhage. No abnormal mass or mass effect. No midline shift. No extra-axial fluid collections. No hydrocephalus. Mastoid air cells unremarkable. Sinuses and orbits unremarkable. No acute fracture. No significant facial or scalp soft tissue swelling evident. No radiopaque foreign body is seen. Impression: 1.No acute intracranial abnormality. Reviewed, dictated and finalized at location P. Impression: 1.No acute intracranial abnormality.
--- NOTE | ~2024-11-22 | CT_ITS ---
EXAMINATION: CT cervical spine wo con DATE: 11/22/2024 10:52 INDICATION: Fall. Neck injury. TECHNIQUE: Computed tomography (CT) of the cervical spine was performed without intravenous contrast. Automated exposure control and iterative reconstruction technique were employed. The dose-length product was 168.76 mGy-cm. COMPARISON: None FINDINGS: There is mild emphysema. There is a small left mastoid effusion. There is 3 mm anterolisthesis of C4 on C5 and C7 on T1. Vertebral body heights are normal. There is severely decreased disc height at C3-C4 with interbody fusion. There is moderately decreased disc height at C4-C5 and severely decreased disc height at C5-C6 and C6-C7. There is multilevel severe facet joint osteoarthritis. There is mild neural foraminal stenosis at multiple levels on either side. There is mild central canal stenosis at C4-C5, C5-C6, and C6-C7. IMPRESSION: 1. No fracture. 2. Severe cervical spondylosis. Reviewed, dictated and finalized at location E.
--- OUTSIDE RECORDS SUMMARY | 2024-11-22 10:59 | XMS_ITS | Encounter Summary ---
Author Organization [facility] Address [address] [place] [address] Phone Care Team Providers Care Collet Gluer Name Role Phone Vincent Costello MD Primary Care Provider [phone] Patricia Mcginnis MD Unavailable [phone] Kandice Rollins NP Unavailable Unavailable Belinda Ha DO Unavailable [phone] Paige Goldman APRN, NOZZLE WORKER Unavailable Rosmery Rico MD Primary Care Provider [phone] Phillip Figueroa MD Unavailable [phone] Reason for Visit * Reason Comments Medication Refill Encounter Details Date Type Department Care Team (Late st Contact Info) Description 12/09/2021 Refill [facility] - Primary Care - [place] [address] [place] [address] Vincent Costello MD [address] [place] [address] Medication Refill Social History Tobacco [...] documented in this encounter Plan of Treatment Upcoming Encounters Date Type Department Care Team (Late st Contact Info) Description 11/26/2024 9:30 AM CDT Appointment [facility] [address] [place] [address] Provider, Not On File Silvia Kan MD [address] [facility] [address] [address] Discharge Disposition: Discharged to home or Selfcare documented as of this encounter Visit Diagnoses Diagnosis Enuresis documented in this encounter Additional Health Concerns Infection Onset Date Last Indicated Resolved Time COVID - 19 12/30/2021 12/30/2021 01/03/2022 11:0 4 AM SLEEP TECHNOLOGIST Assessment Noted Time PHQ-9 Depression Total Score: 0 06/01/19 19 9:00 AM CDT documented as of this encounter Care Teams Collet Gluer Relationship Specialty Start Date End Date Vincent Costello MD [address] [place] [address] PCP - General Internal Medicine 09/30/15 08/31/23 Rosmery Rico MD [address] [place] [address] PCP - General Family Medicine 09/01/23 Patricia Mcginnis MD [address] DIV IM NEPHROLOGY, [address] [address] Consulting Physician Nephrology 05/03/16 Kandice Rollins NP [address] DIV IM NEPHROLOGY, [address] [address] Nurse Practitioner Psychiatry 01/30/20 Dilcia Debora [address] [facility] Dr Char Escalera [address] [address] Consulting Physician Otolaryngology 02/24/23 Paige Goldman APRN, NOZZLE WORKER [address] [place] [address] Nurse Practitioner Advanced Practice Nurse 01/26/23 Phillip Figueroa MD [address] [address] Consulting Physician General Surgery 10/24/24 Quang Rollins MD Consulting Physician Psychiatry 11/03/16 documented as of this encounter
--- OUTSIDE RECORDS SUMMARY | 2024-11-22 10:59 | XMS_ITS | Clinical Summary ---
Author Organization [facility] Address [address] [place] [address] Care Team Providers Care Dye Jig Operator Name Role Phone Silvia Toro MD Primary Care Provider [phone] Allergies Active Allergy Reactions Criticality Noted Date Comments Penicillins Diarrhea Low 10/19/2020 Sulfa (Sulfonamide Antibiotics) Other (See comments) Reaction: HIVES;, , Sulfamethoxazole Rash Reaction: rash, Medications diclofenac sodium (VOLTAREN) 1 % gel Place 1 application on the skin as needed. 013 Active traMADol (ULTRAM) 50 mg tablet Take 1 tablet (50 mg total) by mouth every 6 (six) hours as needed 0 018 Active levothyroxine (SYNTHROID, LEVOTHROID) 25 mcg tablet Take 1 tablet (25 mcg total) by mouth daily 1 018 Active cholecalciferol (VITAMIN D-3) 1000 unit tabletIndications:Seco ndary hyperparathyroidism Take 1 tablet (1,000 Units total) by mouth daily 30 tablet 11 019 Active ipratropium (ATROVENT) 21 mcg (0.03 %) nasal sprayIndications:Chron ic rhinitis Administer 2 sprays into each nostril 3 (three) times a day 30 mL [address] (CYMBALTA) 60 mg capsule TAKE 2 CAPSULES BY MOUTH ONCE DAILY. 180 capsule 3 025 Active traZODone (DESYREL) 50 mg tablet Take 1 tablet (50 mg total) by mouth nightly 90 tablet 3 025 Active colesevelam (WELCHOL) 625 mg tablet Take 2 tablets (1,250 mg total) by mouth 2 (two) times a day Active metoprolol tartrate (LOPRESSOR) 25 mg immediate release tablet Take 1 tablet (25 mg total) by mouth 2 (two) times a day Active amLODIPine (NORVASC) 5 mg tablet TAKE 1 TABLET(5 MG) BY MOUTH DAILY 30 tablet 5 024 2024 Disconti nued(Alt ernate therapy) colestipoL (COLESTID) 1 gram tablet Take 1 tablet (1 g total) by mouth 2 (two) times a day 2024 Disconti nued(The rapy complete d) Active Problems Problem Noted Date Diagnosed Date Flu vaccine need 11/14/2024 Incontinence of feces 11/14/2024 Osteoporosis screening 11/14/2024 Memory change 11/14/2024 Assessment & Plan (11/14/2024 8:58 PM CDT): - She endorses having difficulty remembering things - Denies history of dementia on her family - We will do blood work and next appointment memory testing Need for hepatitis B screening test 11/14/2024 Other osteoporosis without current pathological fracture 11/14/2024 Chronic rhinitis 01/25/2023 Assessment & Plan (01/25/2023 11:14 AM ALTERNATIVE DISPUTE RESOLUTION MEDIATOR): Atrovent 2 sprays into each nostril while looking down over the sink, do not sniff in or blow nose after use for at least 30 minutes, about 30 minutes before a meal Xerostomia 01/25/2023 Assessment & Plan (01/25/2023 11:14 AM ALTERNATIVE DISPUTE RESOLUTION MEDIATOR): 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) 01/30/2020 History of basal cell carcinoma 09/24/2019 Seborrheic keratosis 09/24/2019 CKD (chronic kidney disease) stage 3, GFR 30-59 ml/min 01/05/2018 Assessment & Plan (11/14/2024 8:56 PM CDT): - Following with nephro yearly - It has been stable for the last couple of years - CMP today Essential hypertension 01/05/2018 Assessment & Plan (11/14/2024 8:54 PM CDT): - Taking metoprolol 25 mg BID - BP on today's visit 149/83 - She endorses having white coat syndrome - She will check BP at home, and do a log 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 04/01/2015 Episodic tension-type headache 12/03/2014 Anxiety 12/01/2014 Hypothyroidism 12/01/2014 Assessment & Plan (11/14/2024 8:55 PM CDT): - Taking Synthroid 25 mcg daily - TSH today Arthritis 06/22/2013 Overview (05/11/2016): Arthritis Depression 06/22/2013 Overview (05/12/2016): Depression Generalized osteoarthritis 06/22/2013 Overview (05/12/2016): GENERAL OSTEOARTHROSIS Hypercholesterolemia 06/22/2013 Assessment & Plan (11/14/2024 8:53 PM CDT): - Lipid panel today Multiple-type hyperlipidemia 06/22/2013 Overview (05/13/2016): MIXED HYPERLIPIDEMIA Gastroesophageal reflux disease 06/22/2013 Overview (05/13/2016): ESOPHAGEAL REFLUX 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/22/2011 Encounters Date Type Department Care Team Description 11/22/2024 Telephone [facility] [address] [place] [address] [address] [place] [address] Silvia Toro MD 11/20/2024 Results Follow-Up [facility] [address] [place] [address] [address] [place] [address] Silvia Toro MD CBC with auto differential, Comprehensive metabolic panel, Lipid panel, Additional followed-up results: 8 11/18/2024 Telephone [facility] [address] [place] [address] [address] [place] [address] Silvia Toro MD 11/15/2024 Telephone [facility] [address] [place] [address] [address] [place] [address] Silvia Toro MD 11/14/2024 12:15 PM CDT Lab [facility] at [address] [address] 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 kidney disease, unspecified whether stage 3a or 3b CKD (HCC); Stage 3 chronic kidney disease, unspecified whether stage 3a or 3b CKD (HCC); Hypercholesterolemia; Memory change; Other specified hypothyroidism; Need for hepatitis B screening test 11/14/2024 10:30 AM CDT Office Visit [facility] [address] [place] [address] [address] [place] [address] Silvia Toro MD Flu vaccine need (Primary Dx); Hypercholesterolemia; Essential hypertension; Other specified hypothyroidism; Stage 3 chronic kidney disease, unspecified whether stage 3a or 3b CKD (HCC); Incontinence of feces, unspecified fecal incontinence type; Irritable bowel syndrome with diarrhea; Osteoporosis screening; 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 kidney disease, unspecified whether stage 3a or 3b CKD (HCC); Memory change; Need for hepatitis B screening test; Other osteoporosis without current pathological fracture 10/09/2024 2:30 PM CDT Office Visit [facility] [address] [address] Kandice Rollins NP Major depressive disorder, recurrent episode, in full remission (Primary Dx) from Last 3 Months Immunizations Immunization Administration Dates Next Due Influenza, Trivalent, Adjuvanted, Intramuscular 11/14/2024 Influenza, Trivalent, IM (MDV) 11/27/2008 Pneumococcal Polysaccharide PPV23 04/25/2007 Sars-CoV-2, Unspecified 10/31/2024 Tdap 08/16/2006 ZOSTER LIVE 03/06/2009 Surgical History [...] - 02/05/2007 Ankle Fusion OTHER SURGICAL HISTORY [id number] Finger Fusions x 9 OTHER SURGICAL HISTORY [...] meniscectomy/chondropla sty OTHER SURGICAL HISTORY hysterectomy 1994 [place] ARTHROPLASTY KNEE TIBIAL PLATEAU Knee Replacement - (Added by TW Conv) BACK SURGERY COLONOSCOPY UPPER GASTROINTESTINAL ENDOSCOPY Medical History Medical History Date Comments Hx Other Medical Back Hx Other Medical DJD both knees Gastroesophageal reflux disease GERD Hx Other Medical excessive bleed ing Hx Other Medical 1962 ; Outc ome: 40 week 6 lb(s) 5 oz Female Hx Other Medical 1970 ; Outc ome: 40 week 6 lb(s) Male Hx Other Medical 1962 ; Outc ome: 40 week 7 lb(s) [...] Family history of hypertension - (Added by TW Conv) Kidney failure Father Renal failure ; [...] drink = 0.6 oz pur e alcohol) PHQ-2 Answer Date Recorded PHQ-2 Total Score (If total score is 3 or more points, staff should administer the PHQ-9) 0 11/14/2024 AUDIT-C Answer Date Recorded Q1: How often do you have a drink containing alcohol? 4 or more times a week 11/14/2024 Average Number of Drinks Not on file 025 Frequency of Binge Drinking Not on file 10/2024 Comments Unknown Sex and Gender Information Value Date Recorded Sex Assigned at Not on file Legal Sex Female 11:53 PM ALTERNATIVE DISPUTE RESOLUTION MEDIATOR Gender Identity Not on file Sexual Orientation Not on file Obstetrics History Last Filed Vital Signs Vital Sign Reading Time Taken Comments Blood Pressure 149/83 11/14/2024 10:51 AM CDT Pulse 58 11/14/2024 10:51 AM CDT Temperature 36.8 C (98.3 F) 11/14/2024 10:51 AM CDT Respiratory Rate 18 11/14/2024 10:51 AM CDT Oxygen Saturation 98% 11/14/2024 10:51 AM CDT Inhaled Oxygen Concentration - - Weight 60.9 kg (134 lb 3.2 oz) 11/14/2024 10:51 AM CDT Height 157.5 cm (5' 2) 11/14/2024 10:51 AM CDT Body Mass Index 24.55 11/14/2024 10:51 AM CDT Plan of Treatment Health Maintenance Due Date Last Done Comments Osteoporosis Screening-Bone Density Scan 1940 Well Visit 65+ 07/07/2004 Covid-19 Vaccine (5 2023-2 5 season) 2025 10/31/2024, 08/17/2021, 04/17/2020, Additional history exists Depression Screening 11/14/2025 11/14/2024 Fall Risk Assessment 11/14/2025 11/14/2024 DTaP/Tdap/Td Vaccine (3 - Td or Tdap) 02/28/2026 02/29/2016, 08/16/2006 Pneumococcal vaccine 65+ Completed 016, 10/26/2012, 10/07/2012, Additional history exists Zoster Vaccine Completed 05/05/2021, 12/09, 03/06/2009 Hepatitis B Screening Completed 11/14/2024 Influenza Vaccine Completed 11/14/2024, , 11/14/2019, Additional history exists Meningococcal B Vaccine Discontinued Procedures Procedure Name Priority Date/Time Associated Diagnosis Comments EGFR Routine 11/14/2024 12:19 PM CDT Stage 3 chronic kidney disease, unspecified whether stage 3a or 3b CKD (HCC) DIFFERENTIAL AUTO Routine 11/14/2024 12: 19 PM CDT 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 kidney disease, unspecified whether stage 3a or 3b CKD (HCC) THYROID FUNCTION CASCADE Routine 11/14/2024 12:19 PM CDT Other specified hypothyroidism VITAMIN B12 Routine 11/14/2024 12:19 PM CDT Memory change LIPID PANEL Routine 11/14/2024 12:19 PM CDT Hypercholesterolemia COMPREHENSIVE METABOLIC PANEL Routine 11/14/2024 12:19 PM CDT Stage 3 chronic kidney disease, unspecified whether stage 3a or 3b CKD (HCC) CBC WITH AUTO DIFFERENTIAL Routine 11/14/2024 12:19 PM CDT 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 kidney disease, unspecified whether stage 3a or 3b CKD (HCC) HEPATITIS B SURFACE ANTIBODY (IMMUNE STATUS) Routine 11/14/2024 12:19 PM CDT Need for hepatitis B screening test HEPATITIS B CORE ANTIBODY, TOTAL Routine 11/14/2024 12:19 PM CDT Need for hepatitis B screening test HEPATITIS B SURFACE ANTIGEN Routine 11/14/2024 12:19 PM CDT Need for hepatitis B screening test RPR Routine 11/14/2024 12:19 PM CDT Memory change from Last 3 Months Results * (ABNORMAL) eGFR (11/14/2024 12:19 PM CDT) eGFR 34(L) >=60 mL/min/1. 73 m2 Comment: Interpretive Data Reference Interval Normal >/= 90 mL/min/1.73m2 Mildly decreased* 60 - 89 mL/min/1.73m2 Mildly to moderately decreased 45 - 59 mL/min/1.73m2 Moderately to severely decreased 30 - 44 mL/min/1.73m2 Severely decreased 15 - 29 mL/min/1.73m2 Kidney Failure < 15 mL/min/1.73m2 *Relative to young adult level Estimated glomerular [...] Current interpretive data was last reviewed 2020. Testing performed by: [facility], [address] [place] [address] Blood 11/14/2024 12:1 9 PM CDT 11/14/2024 12:38 PM CDT Silvia Wetzel MD LAB BLOOD ORDERABLES Final Result [facility] [address] Department [place] [address] * Differential, auto (11/14/2024 12:19 PM CDT) Neutrophil abs 5.29 1.50 - 6.50 K/cumm Comment:Testing performed by : [facility], [facility], [address] [place] [address] Imm gran abs 0.02 0.00 - 0.10 K/cumm CERNER BJWCH Comment:Testing performed by : [facility] 2, [address] [place] [address] Lymphocyte abs 1.30 0.80 - 3.30 K/cumm CERNANCY BJWCH Comment:Testing performed by : [facility] 2, [address] [place] [address] Monocyte abs 0.66 0.20 - 0.80 K/cumm CERNER [facility] Comment:Testing performed by : [facility] 2, [address] [place] [address] Eosinophil abs 0.35 0.00 - 0.50 K/cumm CERNER [facility] Comment:Testing performed by : [facility] 2, [address] [place] [address] Basophil abs 0.08 0.00 - 0.10 K/cumm CERNANCY [facility]WCH Comment:Testing performed by : [facility] 2, [address] [place] [address] Neutrophil pct 68.7 % CERNER [facility] Comment: Interpretive Data Percent cell count reference ranges are not reported, since discordance with absolute values may lead to misinterpretation of CBC data. Current Interpretive Data was last revised on 2017. Testing performed by: [facility], [facility] [place], [address] [place] [address] Imm gran pct 0.3 % CERNER [facility] Comment: Interpretive Data Percent cell count reference ranges are not reported, since discordance with absolute values may lead to misinterpretation of CBC data. Current Interpretive Data was last revised on 2017. Testing performed by: [facility], [facility] [place], [address] [place] [address] Lymphocyte pct 16.9 % CERNER [facility] Comment: Interpretive Data Percent cell count reference ranges are not reported, since discordance with absolute values may lead to misinterpretation of CBC data. Current Interpretive Data was last revised on 2017. Testing performed by: [facility], [facility] [place], [address] [place] [address] Monocyte pct 8.6 % CERNER [facility] Comment: Interpretive Data Percent cell count reference ranges are not reported, since discordance with absolute values may lead to misinterpretation of CBC data. Current Interpretive Data was last revised on 2017. Testing performed by: [facility], [facility] [place] [facility], [address] [place] [address] Eosinophil pct 4.5 % CERNER [facility] Comment: Interpretive Data Percent cell count reference ranges are not reported, since discordance with absolute values may lead to misinterpretation of CBC data. Current Interpretive Data was last revised on 2017. Testing performed by: [facility], [facility] [place], [address] [place] [address] Basophil pct 1.0 % CERNER [facility] Comment: Interpretive Data Percent cell count reference ranges are not reported, since discordance with absolute values may lead to misinterpretation of CBC data. Current Interpretive Data was last revised on 2017. Testing performed by: [facility], [facility] [place], [address] [place] [address] Blood 11/14/2024 12:1 9 PM CDT 11/14/2024 12:19 PM CDT Silvia Wetzel MD LAB BLOOD ORDERABLES Final Result Performing Organization Address City/[facility]/ZIP Co de Phone Number [facility] [address] [place] [address] [facility] [place] [address] * Thyroid Function [place] (11/14/2024 12:19 PM CDT) TSH 2.15 0.30 - 4.20 mcIUnit/mL Comment:Testing performed by : [facility], [id number] [place] [address] [place] [address] Blood 11/14/2024 12:1 9 PM CDT 11/14/2024 12:38 PM CDT Silvia Wetzel MD LAB BLOOD ORDERABLES Final Result Performing Organization Address [facility] de Phone Number [facility] [address] [employer]. Department [place] [address] * (ABNORMAL) CBC with auto differential (11/14/2024 12:19 PM CDT) Pathologist [facility] WBC 7.70 3.80 - 9.90 K/cumm Comment:Testing performed by : [facility], [facility] [place], [address] [place] [address] Hgb 14.6 11.9 - 15.5 g/dL [facility]NA RICHARDS Comment:Testing performed by : [facility], [facility] [place], [address] [place] [address] Hct 45.0 35.6 - 45.5 % CHYNA CORDEROWCH Comment:Testing performed by : [facility] 2, [address] [place] [address] Plt 324 150 - 400 K/cumm CHYNA CORDEROWCH Comment:Testing performed by : [facility], [facility] [place], [address] [place] [address] MPV 8.7(L) 9.1 - 12.3 fL CHYNA CORDEROWCH Comment:Testing performed by : [facility], [facility] [place], [address] [place] [address] RBC 4.98 3.90 - 5.20 M/cumm CERNER [facility] Comment:Testing performed by : [facility], [facility] [place], [address] [place] [address] MCV 90.4 81.3 - 96.4 fL CERNER [facility] Comment:Testing performed by : [place] [address], [address], [place] [address] MCH 29.3 27.1 - 33.3 pg CERNER [facility] Comment:Testing performed by : [place] [address], [address] [place] [address] MCHC 32.4 32.3 - 35.7 g/dL C[facility]ER [facility] Comment:Testing performed by : [place] [address], [address] [place] [address] RDW CV 13.6 11.1 - 14.9 % CERNER [facility] Comment:Testing performed by : [facility], [facility], [address], [place] [address] RDW SD 45.2 35.7 - 48.1 fL C[facility]ER [facility] Comment:Testing performed by : [facility] 2, [address] [place] [address] ANC Prelim 5.29 1.50 - 6.50 K/cumm CERNER B[facility] Comment: Interpretive Data The rapid ANC is a preliminary automated count and may vary from the final ANC (Neut Abs) reported in the WBC differential that follows. Current interpretive data was last revised 2024. Testing performed by: [place] [address], [address] [place] [address] Blood 11/14/2024 12:1 9 PM CDT 11/14/2024 12:19 PM CDT Silvia Wetzel MD LAB BLOOD ORDERABLES Final Result Performing Organization Address [facility] Co de Phone Number [facility] [address] [place] [address] [facility] [place] [address] * Hepatitis B core antibody, total Blood (11/14/2024 12:19 PM CDT) Pathologist [facility] Hep B core IgG/IgM Nonreactive Nonreactive Comment:Testing performed by : [facility], [address] [place] [address]., [address] Blood 11/14/2024 12:1 9 PM CDT 11/14/2024 2:21 PM CDT Silvia Wetzel MD LAB MICROBIOLOGY - GENERAL ORDERABLES Final Result Performing Organization Address [facility] Co de Phone Number [facility] [address] [employer] [address] * RPR Blood (11/14/2024 12:19 PM CDT) Pathologist [facility] RPR Nonreactive Nonreactive Comment:Testing performed by : [facility], [address] [place] [address]., [address] Blood 11/14/2024 12:1 9 PM CDT 11/14/2024 2:21 PM CDT Silvia Wetzel MD LAB MICROBIOLOGY - GENERAL ORDERABLES Final Result Performing Organization Address [facility] Co de Phone Number [facility] [address] [employer]. [facility] [place] [address] * Hepatitis B surface antibody (immune status) Blood (11/14/2024 12:19 PM CDT) Pathologist [facility] HBsAb (immune status) Nonreactive Comment: This result is consistent with a lack of immunity to Hepatitis B Virus when used in the setting of routine screening. Current interpretative data was last revised on 21 Testing performed by: [facility], [address] [place]., [address] Blood 11/14/2024 12:1 9 PM CDT 11/14/2024 2:21 PM CDT Silvia Wetzel MD LAB MICROBIOLOGY - GENERAL ORDERABLES Final Result [facility] [address] [place] [facility]. [place] [address] * Hepatitis B Surface Antigen Blood (11/14/2024 12:19 PM CDT) HepBsAg Nonreactive Nonreactive Comment:Testing performed by : [facility], [address] [place] [address]., [address] Blood 11/14/2024 12:1 9 PM CDT 11/14/2024 3:18 PM CDT Silvia Wetzel MD LAB MICROBIOLOGY - GENERAL ORDERABLES Final Result [facility] [address] [facility] [address] * Vitamin B12 (11/14/2024 12:19 PM CDT) Vitamin B12 530 230 - 1,250 pg/mL Comment:Testing performed by : [facility], [address] [place] [address]., [address] Blood 11/14/2024 12:1 9 PM CDT 11/14/2024 3:18 PM CDT Silvia Wetzel MD LAB BLOOD ORDERABLES Final Result [facility] [address] [place] [address] * (ABNORMAL) Lipid panel (11/14/2024 12:19 PM CDT) Cholesterol 309(H) 30 - 199 mg/dL Comment: Interpretive Data Ages < or = 19 years Acceptable: <170 mg/dL Borderline high: 170-199 mg/dL High: >or= 200 mg/dL Ages > or = 20 years Desirable: <200 mg/dL Borderline high: 200-239 mg/dL High: >or= 240 mg/dL Literature References: 1. Expert Panel on Integrated Guidelines for Cardiovascular Health and Risk Reduction in Children and Adolescents. Pediatrics 2011;128:S213 2. NCEP Expert Panel. Circulation 2004;110:227 Current Interpretive Data was last revised on 2017. Testing performed by: [facility], [address] [place] [address] Triglycerides 229(H) <=149 mg/dL [facility] Comment: Interpretive Data Ages < or = 9 years Acceptable: <75 mg/dL Borderline high: 75-99 mg/dL High: >or= 100 mg/dL Ages 10 to 20 years Acceptable: <90 mg/dL Borderline high: 90-129 mg/dL High: >or= 130 mg/dL Ages > or = 20 years Desirable: <150 mg/dL Borderline high: 150-199 mg/dL High: 200-499 mg/dL Very high: >or= 499 mg/dL Literature References: 1. Expert Panel on Integrated Guidelines for Cardiovascular Health and Risk Reduction in Children and Adolescents. Pediatrics 2011;128:S213 2. NCEP Expert Panel. Circulation 2004;110:227 Current Interpretive Data was last revised on 2017. Testing performed by: [facility], [address] [place] [address] HDL 83 >=40 mg/dL CERNANCY BJW Comment: Interpretive Data Ages < or = 19 years Acceptable: >45 mg/dL Borderline low: 40-45 mg/dL Low: <40 mg/dL Ages > or = 20 years Desirable: >or= 60 mg/dL Low: <40 mg/dL Literature References: 1. Expert Panel on Integrated Guidelines for Cardiovascular Health and Risk Reduction in Children and Adolescents. Pediatrics 2011;128:S213 2. NCEP Expert Panel. Circulation 2004;110:227 Current Interpretive Data was last revised on 2017. Testing performed by: [facility], [address] [place] [address] LDL, calculated 183(H) <=129 mg/dL CHYNA RICHARDS Comment: Interpretive Data Ages < or = 19 years Acceptable: <110 mg/dL Borderline high: 110-129 mg/dL High: >or= 130 mg/dL Ages > or = 20 years Optimal: <100 mg/dL Near optimal: 100-129 mg/dL Borderline high: 130-159 mg/dL High: >160 mg/dL Calculated using the Lawson LDL-C estimating equation. This equation was implemented on 2023. Prior to this date LDL-C was estimated using the Friedewald equation. Literature References: 1. Expert Panel on Integrated Guidelines for Cardiovascular Health and Risk Reduction in Children and Adolescents. Pediatrics 2011;128:S213 2. NCEP Expert Panel. Circulation 2004;110:227 3. Lawson Lewis et al. ALPHONSE Cardiol. 2019June 06;5(5):540-548. doi: [email or web address] Current Interpretive Data was last revised on 2023. Testing performed by: [facility], [address] [place] [address] Non-HDL Cholesterol 226 mg/dL CHYNA RICHARDS Comment: Interpretive Data Ages < or = 19 years Acceptable: <120 mg/dL Borderline high: 120-144 mg/dL High: >145 mg/dL Ages > or = 20 years When triglycerides are >200 mg/dL, Non-HDL cholesterol is a secondary target of therapy with treatment goals that are 30 mg/dL greater than the LDL cholesterol target. Literature References: 1. Expert Panel on Integrated Guidelines for Cardiovascular Health and Risk Reduction in Children and Adolescents. Pediatrics 2011;128:S213 2. NCEP Expert Panel. Circulation 2004;110:227 Current Interpretive Data was last revised on 2017. Testing performed by: [facility], [address] [place] [address] Chol/HDL ratio 4 CHYNA RICHARDS Comment:Testing performed by : [facility], [address] [place] [address] Blood 11/14/2024 12:1 9 PM CDT 11/14/2024 12:38 PM CDT Silvia Wetzel MD LAB BLOOD ORDERABLES Final Result [facility] [address] Department [place] [address] * (ABNORMAL) Comprehensive metabolic panel (11/14/2024 12:19 PM CDT) Sodium 138 135 - 145 mmol/L Comment:Testing performed by : [facility], [address], [place] [address] Potassium, pl 4.8 3.3 - 4.9 mmol/L CHYNA GOODRICHCH Comment:Testing performed by : [facility], [address], [place] [address] Chloride 99 97 - 110 mmol/L CHYNA GOODRICHCH Comment:Testing performed by : [facility], [address], [place] [address] CO2 27 22 - 32 mmol/L CERNANCY CORDEROWCH Comment:Testing performed by : [facility], [address], [place] [address] Anion gap 12 2 - 15 mmol/L CHYNA CORDEROWCH Comment:Testing performed by : [facility], [address], [place] [address] BUN 35(H) 6 - 25 mg/dL CERNANCY BJWCH Comment:Testing performed by : [facility], [address], [place] [address] Creatinine 1.50(H) 0.60 - 1.10 mg/dL CERNANCY BJWCH Comment:Testing performed by : [facility], [address], [place] [address] Glucose 94 70 - 199 mg/dL CERNANCY BJWCH Comment: Interpretive Data Fasting glucose >/= 126 mg/dl is diagnostic for diabetes. Fasting is defined as no caloric intake [...] Current interpretive data was last revised 2022. Testing performed by: [facility], [address], [place] [address] Calcium 9.5 8.5 - 10.3 mg/dL CERNER BJWCH Comment:Testing performed by : [facility], [address], [place] [address] Bilirubin, total 0.3 0.1 - 1.2 mg/dL CERNER BJWCH Comment:Testing performed by : [facility], [address], [place] [address] Protein, pl 7.0 6.5 - 8.5 g/dL CERNER BJWCH Comment:Testing performed by : [facility], [address], [place] [address] Albumin 4.5 3.5 - 5.0 g/dL CERNER BJWCH Comment:Testing performed by : [facility], [address], [place] [address] Alk phos 94 40 - 130 Units/L CERNER BJWCH Comment:Testing performed by : [facility], [address], [place] [address] ALT 16 7 - 45 Units/L CERNER BJWCH Comment:Testing performed by : [facility], [address], [place] [address] AST 23 10 - 45 Units/L CERNER BJWCH Comment:Testing performed by : [facility], [address], [place] [address] Blood 11/14/2024 12:1 9 PM CDT 11/14/2024 12:38 PM CDT Silvia Wetzel MD LAB BLOOD ORDERABLES Final Result CERNER BJWCH [id number] [facility] [place] [address] from Last 3 Months Insurance MEDICARE [employer] MEDICARE [employer] MEDICARE [facility] [employer] Care Teams Dye Jig Operator Relationship Specialty Start Date End Date Silvia Toro MD PCP - General Geriatric Medicine 11/14/24
--- OUTSIDE RECORDS SUMMARY | 2024-11-22 10:59 | XMS_ITS | Encounter Summary ---
Author Organization [facility] Address [address] [place] [address] Phone Care Team Providers Care Cooker Process Cheese Name Role Phone Silvia Toro MD Primary Care Provider [phone] Encounter Details Date Type Department Care Team (Late st Contact Info) Description 11/22/2024 Telephone [facility] Medicine Geriatric Medicine 10 [facility] 200 Medical Office Building 2 [place] [address] Silvia Toro MD [address] [place] [address] GERIATRIC MED, [facility] [address] [place] [address] Social History Tobacco Use Types Packs/Day Years [...] on file Legal Sex Female 11:53 PM DIRECTOR RETIREMENT Gender Identity Not on file Sexual Orientation Not on file documented as of this encounter Miscellaneous Notes * Telephone Encounter - Katelynn Crespo RN - 11/22/2024 9:35 AM CDT Caller & Reason for Calling: Pt called with c/o recent dizziness and being lightheaded. She fell at the grocery store yesterday and hit her head. Asked if EMS came, but she said she felt ok and just went home right away. She noticed blood this morning after sleeping. Pharmacy: Duration of Symptoms: 2-3 days Pertinent info: 11/21 BP 14?/8? 11/22 BP 137/83 Symptoms: - dizzy - lightheaded - congestion - chest tightness yesterday Denies following: - SOB Treatment so far: Recommendations: - SENT TO ED for [facility] is where she plans to go documented in this encounter Plan of Treatment Not on file documented as of this encounter Visit Diagnoses Not on filedocumented in this encounter Care Teams Cooker Process Cheese Relationship Specialty Start Date End Date Silvia Toro MD PCP - General Geriatric Medicine 11/14/24 documented as of this encounter
--- OUTSIDE RECORDS SUMMARY | 2024-11-22 10:59 | XMS_ITS | Encounter Summary ---
Author Organization [facility] Address [address] [place] [address] Phone Care Team Providers Care Dwarf Tree Grower Name Role Phone Vincent Costello MD Primary Care Provider + [phone] Patricia Mcginnis MD Unavailable [phone] Kandice Rollins NP Unavailable Unavailable Belinda Ha DO Unavailable [phone] Paige Goldman APRN, OPERATING MANAGER Unavailable Rosmery Rico MD Primary Care Provider [phone] Phillip Figueroa MD Unavailable [phone] Reason for Visit * Reason Comments Medication Refill Encounter Details Date Type Department Care Team (Late st Contact Info) Description 03/12/2023 Refill [facility] - Primary Care - [place] [address] [place] [address] Vincent Costello MD [address] [place] [address] Medication Refill Social History Tobacco [...] the following reason: Med List Clean Up D CARE PROVIDER documented in this encounter Plan of Treatment Upcoming Encounters Date Type Department Care Team (Late st Contact Info) Description 11/26/2024 9:30 AM CDT [facility] 1 [place] [address] Provider, Not On File Silvia Kan MD 10 [facility] [address] [address] Discharge Disposition: Discharged to home or Selfcare documented as of this encounter Visit Diagnoses Diagnosis Enuresis documented in this encounter Additional Health Concerns Assessment Noted Time PHQ-9 Depression Total Score: 0 02/24/19 9:17 AM CHILD CARE PROVIDER documented as of this encounter Care Teams Dwarf Tree Grower Relationship Specialty Start Date End Date Vincent Costello MD [address] [place] [address] PCP - General Internal Medicine 09/30/15 08/31/23 Rosmery Rico MD [address] [place] [address] PCP - General Family Medicine 09/01/23 Patricia Mcginnis MD [address] DIV IM NEPHROLOGY, [address] [address] Consulting Physician Nephrology 05/03/16 Kandice Rollins NP [address] DIV IM NEPHROLOGY, [address] [address] Nurse Practitioner Psychiatry 01/30/20 Dilcia DeboraDO [address] [facility] [address] Char Escalera [facility] [address] [place] [address] Consulting Physician Otolaryngology 02/24/23 Paige Goldman APRN, OPERATING MANAGER #2 [place] [address] Nurse Practitioner Advanced Practice Nurse 01/26/23 Phillip Figueroa MD 2 [facility] [address] [address] Consulting Physician General Surgery 10/24/24 Quang Rollins MD Consulting Physician Psychiatry 11/03/16 documented as of this encounter
--- OUTSIDE RECORDS SUMMARY | 2024-11-22 10:59 | XMS_ITS | Encounter Summary ---
Author Organization [facility] Address [address] [place] [address] Phone Care Team Providers Care Urologic Surgeon Name Role Phone Vincent Costello MD Primary Care Provider + [phone] Patricia Mcginnis MD Unavailable [phone] Kandice Rollins NP Unavailable Unavailable Belinda Ha DO Unavailable [phone] Paige Goldman APRN, CHILDREN'S CHOIR DIRECTOR Unavailable Rosmery Rico MD Primary Care Provider [phone] Phillip Figueroa MD Unavailable [phone] Reason for Visit * Reason Comments Medication Refill Encounter Details Date Type Department Care Team (Late st Contact Info) Description 03/17/2022 Refill [facility] - Primary Care - [place] [address] [place] [address] Vincent Costello MD [address] [place] [address] Medication Refill Social History Tobacco [...] Coronavirus/COVID-19? No / Unsure 03/17/2022 2:13 PM DIRECTOR OF MUSIC documented as of this encounter Miscellaneous Notes * Telephone Encounter - Vincent Costello MD - 03/17/2022 11:51 AM DIRECTOR OF MUSIC Refill request approved. CTOR OF MUSIC * Telephone Encounter - Alia Black RN [...] Dept 02/18/22 Office Visit Vincent Costello MD [facility] 01/07/22 Office Visit Vincent Costello MD [facility] 12/15/21 Office Visit Ness Mccrary APRN, YAYO [facility] 08/17/21 Office Visit Vincent Costello MD [facility] Showing recent visits within past 365 days and meeting all other requirements Future Appointments No visits were found meeting these conditions. Showing future appointments within next 90 days and meeting all other requirements CTOR OF MUSIC * Telephone Encounter - Alia Black RN - 03/17/2022 11:13 AM CST Per [place] PDMP last fill date 02/16/22. CTOR OF MUSIC documented in this encounter Plan of Treatment Upcoming Encounters Date Type Department Care Team (Late st Contact Info) Description 11/26/2024 9:30 AM CDT [facility] 1 [place] [address] Provider, Not On File [place] Silvia Toro MD [address] [place] [address] [address] [address] Discharge Disposition: Discharged to home or Selfcare documented as of this encounter Visit Diagnoses Diagnosis Arthritis Arthropathy, unspecified, site unspecified documented in this encounter Additional Health Concerns Assessment Noted Time PHQ-9 Depression Total Score: 0 06/01/19 19 9:00 AM CDT documented as of this encounter Care Teams Urologic Surgeon Relationship Specialty Start Date End Date Vincent Costello MD [address] [place] [address] PCP - General Internal Medicine 09/30/15 08/31/23 Rosmery Rico MD [address] [place] [address] PCP - General Family Medicine 09/01/23 Patricia Mcginnis MD 4921 [facility] NEPHROLOGY, [address] [address] Consulting Physician Nephrology 05/03/16 Kandice Rollins NP 4921 [facility] DIV NEPHROLOGY, [address] [address] Nurse Practitioner Psychiatry 01/30/20 Dilcia Belinda MayaDO 4 [facility] [address] Char Escalera [facility] [address] [place] [address] Consulting Physician Otolaryngology 02/24/23 Paige Goldman APRN, CHILDREN'S CHOIR DIRECTOR #[address] [place] [address] Nurse Practitioner Advanced Practice Nurse 01/26/23 Phillip Figueroa MD [address] [address] Consulting Physician General Surgery 10/24/24 Quang Rollins MD Consulting Physician Psychiatry 11/03/16 documented as of this encounter
--- OUTSIDE RECORDS SUMMARY | 2024-11-22 10:59 | XMS_ITS | Encounter Summary ---
Author Organization [facility] Address [address] [place] [address] Phone Care Team Providers Care Networking Administrator Name Role Phone Vincent Costello MD Primary Care Provider + [phone] Patricia Mcginnis MD Unavailable [phone] Kandice Rollins NP Unavailable Unavailable Belinda Ha DO Unavailable [phone] Paige Goldman APRN, CUP SETTER LOCKSTITCH Unavailable Rosmery Rico MD Primary Care Provider [phone] Phillip Figueroa MD Unavailable [phone] Reason for Visit * Reason Comments Medication Refill Encounter Details Date Type Department Care Team (Late st Contact Info) Description 11/16/2021 Refill [facility] Primary Care - [place] [address] [place] [address] Vincent Costello MD [address] [place] [address] Medication Refill Social History Tobacco [...] Dept 08/17/21 Office Visit Vincent Costello MD [facility] 03/08/21 Office Visit Vincent Costello MD [facility] 02/09/21 Office Visit Vincent Costello MD [facility] Showing recent visits within past 365 days and meeting all other requirements Future Appointments No visits were found meeting these conditions. Showing future appointments within next 90 days and meeting all other requirements documented in this encounter Plan of Treatment Upcoming Encounters Date Type Department Care Team (Late st Contact Info) Description 11/26/2024 9:30 AM CDT Appointment [facility] Mammography 1 [place] [address] Provider, Not On File [place] Silvia Toro MD 10 [facility] [address] [place] [address] Discharge Disposition: Discharged to home or Selfcare documented as of this encounter Visit Diagnoses Not on filedocumented in this encounter Additional Health Concerns Infection Onset Date Last Indicated Resolved Time COVID - 19 12/30/2021 12/30/2021 01/03/2022 11:0 4 AM FINANCIAL AID OFFICER Assessment Noted Time PHQ-9 Depression Total Score: 0 06/01/19 19 9:00 AM CDT documented as of this encounter Care Teams Networking Administrator Relationship Specialty Start Date End Date Vincent Costello MD [address] [place] [address] PCP - General Internal Medicine 09/30/15 08/31/23 Rosmery Rico MD [address] [place] [address] PCP - General Family Medicine 09/01/23 Patricia Mcginnis MD [address] DIV IM NEPHROLOGY, [address] [address] Consulting Physician Nephrology 05/03/16 Kandice Rollins NP [address] DIV IM NEPHROLOGY, [address] [address] Nurse Practitioner Psychiatry 01/30/20 Belinda Ha DO [address] [place] [address] Dr Char Escalera [address] [address] Consulting Physician Otolaryngology 02/24/23 Paige Goldman APRN, CUP SETTER LOCKSTITCH #[address] [place] [address] Nurse Practitioner Advanced Practice Nurse 01/26/23 Phillip Figueroa MD [address] [address] Consulting Physician General Surgery 10/24/24 Quang Rollins MD Consulting Physician Psychiatry 11/03/16 documented as of this encounter
--- OUTSIDE RECORDS SUMMARY | 2024-11-22 10:59 | XMS_ITS | Encounter Summary ---
Author Organization [facility] Address [address] [place] [address] Phone Care Team Providers Care Track Greaser Name Role Phone Vincent Costello MD Primary Care Provider + [phone] Patricia Mcginnis MD Unavailable [phone] Kandice Rollins NP Unavailable Unavailable Belinda Ha DO Unavailable [phone] Paige Goldman APRN, BACK UP MACHINE OPERATOR Unavailable Rosmery Rico MD Primary Care Provider [phone] Phillip Figueroa MD Unavailable [phone] Reason for Visit * Reason Comments Medication Refill Encounter Details Date Type Department Care Team (Late st Contact Info) Description 09/11/2020 Refill [facility] - Primary Care - [place] [address] [place] [address] Vincent Costello MD [address] [place] [address] Medication Refill Social History Tobacco [...] Info) Description 11/26/2024 9:30 AM CDT Appointment [facility] 1 [place] [address] Provider, Not On File Silvia Kan MD 10 [facility] [address] [address] Discharge Disposition: Discharged to home or Selfcare documented as of this encounter Visit Diagnoses Diagnosis Enuresis documented in this encounter Additional Health Concerns Infection Onset Date Last Indicated Resolved Time COVID - 19 12/30/2021 12/30/2021 01/03/2022 11:0 4 AM ROTARY MACHINE OPERATOR Assessment Noted Time PHQ-9 Depression Total Score: 0 06/01/19 19 9:00 AM CDT documented as of this encounter Care Teams Track Greaser Relationship Specialty Start Date End Date Vincent Costello MD [address] [place] [address] PCP - General Internal Medicine 09/30/15 08/31/23 Rosmery Rico MD [address] [place] [address] PCP - General Family Medicine 09/01/23 Patricia Mcginnis MD [address] DIV IM NEPHROLOGY, [address] [address] Consulting Physician Nephrology 05/03/16 Kandice Rollins NP [address] DIV IM NEPHROLOGY, [address] [address] Nurse Practitioner Psychiatry 01/30/20 Belinda Ha DO [address] [facility] [address] Pardo [address] [address] Consulting Physician Otolaryngology 02/24/23 Paige Goldman APRN, BACK UP MACHINE OPERATOR #[address] [place] [address] Nurse Practitioner Advanced Practice Nurse 01/26/23 Phillip Figueroa MD [address] [address] Consulting Physician General Surgery 10/24/24 Quang Rollins MD Consulting Physician Psychiatry 11/03/16 documented as of this encounter
--- OUTSIDE RECORDS SUMMARY | 2024-11-22 10:59 | XMS_ITS | Encounter Summary ---
Author Organization [facility] Address [address] [place] [address] Phone Care Team Providers Care Algorithm Developer Name Role Phone Vincent Costello MD Primary Care Provider + [phone] Patricia Mcginnis MD Unavailable [phone] Kandice Rollins NP Unavailable Unavailable Belinda Ha DO Unavailable [phone] Paige Goldman APRN, OXYACETYLENE TORCH OPERATOR Unavailable Rosmery Rico MD Primary Care Provider [phone] Phillip Figueroa MD Unavailable [phone] Reason for Visit * Reason Comments Medication Refill Encounter Details Date Type Department Care Team (Late st Contact Info) Description 02/27/2023 Refill [facility] - Gastroenterology - [place] [address] [place] [address] Paige Goldman APRN, OXYACETYLENE TORCH OPERATOR [address] [place] [address] Medication Refill Social History Tobacco Use Types [...] Analia Haq RN - 02/28/2023 9:37 AM [employer] WEBSPHERE COMMERCE CONSULTANT Medication refilled and signed [facility] standing order for pediatric and adult patients. WEBSPHERE COMMERCE CONSULTANT documented in this encounter Plan of Treatment Upcoming Encounters Date Type Department Care Team (Late st Contact Info) Description 11/26/2024 9:30 AM CDT [facility]ment [facility] 1 [place] [address] Provider, Not On File [place] Silvia Toro MD 10 [facility] [address] [address] Discharge Disposition: Discharged to home or Selfcare documented as of this encounter Visit Diagnoses Diagnosis Irritable bowel syndrome with diarrhea Irritable bowel syndrome documented in this encounter Additional Health Concerns Assessment Noted Time PHQ-9 Depression Total Score: 0 02/24/19 24 9:17 AM [employer] WEBSPHERE COMMERCE CONSULTANT documented as of this encounter Care Teams Algorithm Developer Relationship Specialty Start Date End Date Vincent Costello MD [address] [place] [address] PCP - General Internal Medicine 09/30/15 08/31/23 Rosmery Rico MD [address] [place] [address] PCP - General Family Medicine 09/01/23 Patricia Mcginnis MD [address] DIV IM NEPHROLOGY, [address] [address] Consulting Physician Nephrology 05/03/16 Kandice Rollins NP [address] DIV IM NEPHROLOGY, [address] [address] Nurse Practitioner Psychiatry 01/30/20 Dilcia DeboraDO [address] [facility] [address] Char Escalera [address] [address] Consulting Physician Otolaryngology 02/24/23 Paige Goldman APRN, OXYACETYLENE TORCH OPERATOR #[address] [place] [address] Nurse Practitioner Advanced Practice Nurse 01/26/23 Phillip Figueroa MD [address] [address] Consulting Physician General Surgery 10/24/24 Quang Rollins MD Consulting Physician Psychiatry 11/03/16 documented as of this encounter
--- OUTSIDE RECORDS SUMMARY | 2024-11-22 10:59 | XMS_ITS | Encounter Summary ---
Author Organization [facility] Address [address] [place] [address] Phone Care Team Providers Care Alteration Inspector Name Role Phone Vincent Costello MD Primary Care Provider + [phone] Patricia Mcginnis MD Unavailable [phone] Kandice Rollins NP Unavailable Unavailable Belinda Ha DO Unavailable [phone] Paige Goldman APRN, COMPUTER AIDED DESIGN DESIGNER Unavailable Rosmery Rico MD Primary Care Provider [phone] Phillip Figueroa MD Unavailable [phone] Reason for Visit * Reason Comments Medication Refill Encounter Details Date Type Department Care Team (Late st Contact Info) Description 07/31/2021 Refill [facility] - Primary Care - [place] [address] [place] [address] Vincent Costello MD [address] [place] [address] Medication Refill Social History Tobacco [...] Info) Description 11/26/2024 9:30 AM CDT [facility] 1 [place] [address] Provider, Not On File [place] Silvia Toro MD 10 [facility] [address] [address] Discharge Disposition: Discharged to home or Selfcare documented as of this encounter Visit Diagnoses Not on filedocumented in this encounter Additional Health Concerns Infection Onset Date Last Indicated Resolved Time COVID - 19 12/30/2021 12/30/2021 01/03/2022 11:0 4 AM LAB SPECIALIST Assessment Noted Time PHQ-9 Depression Total Score: 0 06/01/19 19 9:00 AM CDT documented as of this encounter Care Teams Alteration Inspector Relationship Specialty Start Date End Date Vincent Costello MD [address] [place] [address] PCP - General Internal Medicine 09/30/15 08/31/23 Rosmery Rico MD [address] [place] [address] PCP - General Family Medicine 09/01/23 Patricia Mcginnis MD [address] DIV IM NEPHROLOGY, [address] [address] Consulting Physician Nephrology 05/03/16 Kandice Rollins NP [address] DIV IM NEPHROLOGY, [address] [address] Nurse Practitioner Psychiatry 01/30/20 Belinda Ha DO [address] [place] [address] [address] Consulting Physician Otolaryngology 02/24/23 Paige Goldman APRN, COMPUTER AIDED DESIGN DESIGNER [address] [place] [address] Nurse Practitioner Advanced Practice Nurse 01/26/23 Phillip Figueroa MD [address] [address] Consulting Physician General Surgery 10/24/24 Quang Rollins MD Consulting Physician Psychiatry 11/03/16 documented as of this encounter
--- OUTSIDE RECORDS SUMMARY | 2024-11-22 10:59 | XMS_ITS | Encounter Summary ---
Author Organization [facility] Address [address] [place] [address] Phone Care Team Providers Care Music Minister Name Role Phone Vincent Costello MD Primary Care Provider + [phone] Patricia Mcginnis MD Unavailable [phone] Kandice Rollins NP Unavailable Unavailable Belinda Ha DO Unavailable [phone] Paige Goldman APRN, MANAGER OF RADIOLOGY Unavailable Rosmery Rico MD Primary Care Provider [phone] Phillip Figueroa MD Unavailable [phone] Reason for Visit * Reason Comments Medication Refill Encounter Details Date Type Department Care Team (Late st Contact Info) Description 11/15/2021 Refill [facility] - Primary Care - [place] [address] [place] [address] Vincent Costello MD [address] [place] [address] Medication Refill Social History Tobacco [...] Dept 08/17/21 Office Visit Vincent Costello MD [facility] 03/08/21 Office Visit Vincent Costello MD [facility] 02/09/21 Office Visit Vincent Costello MD [facility] Showing recent visits within past 365 days and meeting all other requirements Future Appointments No visits were found meeting these conditions. Showing future appointments within next 90 days and meeting all other requirements documented in this encounter Plan of Treatment Upcoming Encounters Date Type Department Care Team (Late st Contact Info) Description 11/26/2024 9:30 AM CDT Appointment [facility] Mammography 1 [place] [address] Provider, Not On File Silvia Kan MD [address] [place] [address] DR SHA[address] [place] [address] Discharge Disposition: Discharged to home or Selfcare documented as of this encounter Visit Diagnoses Diagnosis Arthritis Arthropathy, unspecified, site unspecified documented in this encounter Additional Health Concerns Infection Onset Date Last Indicated Resolved Time COVID - 19 12/30/2021 12/30/2021 01/03/2022 11:0 4 AM RETAIL MARKETING MANAGER Assessment Noted Time PHQ-9 Depression Total Score: 0 06/01/19 19 9:00 AM CDT documented as of this encounter Care Teams Music Minister Relationship Specialty Start Date End Date Vincent Costello MD [address] [place] [address] PCP - General Internal Medicine 09/30/15 08/31/23 Rosmery Rico MD [address] [place] [address] PCP - General Family Medicine 09/01/23 Patricia Mcginnis MD [address] DIV IM NEPHROLOGY, [address] [address] Consulting Physician Nephrology 05/03/16 Kandice Rollins NP [address] DIV IM NEPHROLOGY, [address] [address] Nurse Practitioner Psychiatry 01/30/20 Belinda Ha DO [address] [place] [address] Dr Char Escalera [address] [address] Consulting Physician Otolaryngology 02/24/23 SchPaige ortega APRN, MANAGER OF RADIOLOGY #[address] [place] [address] Nurse Practitioner Advanced Practice Nurse 01/26/23 Phillip Figueroa MD [address] [address] Consulting Physician General Surgery 10/24/24 Quang Rollins MD Consulting Physician Psychiatry 11/03/16 documented as of this encounter
--- OUTSIDE RECORDS SUMMARY | 2024-11-22 10:59 | XMS_ITS | Encounter Summary ---
Author Organization [facility] Address [address] [place] [address] Phone Care Team Providers Care Guest Services Associate Name Role Phone Vincent Costello MD Primary Care Provider + Rosmery Rico MD Primary Care Provider [phone] Silvia Toro MD Primary Care Provider [phone] Encounter Details Date Type Department Care Team (Latest Contact Info) Description 08/17/2021 Orders Only [facility] Scanning, Provider Social History Tobacco Use Types Packs/Day Years Used Date Smoking Tobacco: Former Smokeless Tobacco: Never Alcohol Use Standard Drinks/Week Comments Yes 2 (1 standard drink = 0.6 oz pur e alcohol) Comments Unknown Sex and Gender Information Value Date Recorded Sex Assigned at Not on file Legal Sex Female 11:53 PM BROADCAST OPERATIONS MANAGER Gender Identity Not on file Sexual Orientation [...] on filedocumented in this encounter Care Teams Guest Services Associate Relationship Specialty Start Date End Date Vincent Costello MD PCP - General 01/12/17 10/05/23 Rosmery Rico MD PCP - General Family Medicine 10/06/23 11/13/24 Silvia Toro MD PCP - General Geriatric Medicine 11/14/24 documented as of this encounter
--- OUTSIDE RECORDS SUMMARY | 2024-11-22 10:59 | XMS_ITS | Encounter Summary ---
Author Organization [facility] Address [address] [place] [address] Phone Care Team Providers Care Community Educator Name Role Phone Vincent Costello MD Primary Care Provider + [phone] Patricia Mcginnis MD Unavailable [phone] Kandice Rollins NP Unavailable Unavailable Belinda Ha DO Unavailable [phone] Paige Goldman APRN, FINANCIAL SALES MANAGER Unavailable Rosmery Rico MD Primary Care Provider [phone] Phillip Figueroa MD Unavailable [phone] Reason for Visit * Reason Comments Medication Refill Encounter Details Date Type Department Care Team (Late st Contact Info) Description 08/18/2021 Refill [facility] - Primary Care - [place] [address] [place] [address] Vincent Costello MD [address] [place] [address] Medication Refill Social History Tobacco [...] Info) Description 11/26/2024 9:30 AM CDT [facility] 1 [place] [address] Provider, Not On File Silvia Kan MD [address] [facility] [address] OFF[address] [facility] 2 [place] [address] Discharge Disposition: Discharged to home or Selfcare documented as of this encounter Visit Diagnoses Not on filedocumented in this encounter Additional Health Concerns Infection Onset Date Last Indicated Resolved Time COVID - 19 12/30/2021 12/30/2021 01/03/2022 11:0 4 AM 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 Assessment Noted Time PHQ-9 Depression Total Score: 0 06/01/19 9:00 AM CDT documented as of this encounter Care Teams Community Educator Relationship Specialty Start Date End Date Vincent Costello MD [address] [place] [address] PCP - General Internal Medicine 09/30/15 08/31/23 Rosmery Rico MD [address] [place] [address] PCP - General Family Medicine 09/01/23 Patricia Mcginnis MD [address] DIV IM NEPHROLOGY, [address] [address] Consulting Physician Nephrology 05/03/16 Kandice Rollins NP [address] DIV IM NEPHROLOGY, [address] [address] Nurse Practitioner Psychiatry 01/30/20 Belinda Ha [address] [facility] [address] Char Escalera [address] [address] Consulting Physician Otolaryngology 02/24/23 Paige Goldman APRN, FINANCIAL SALES MANAGER [address] [place] [address] Nurse Practitioner Advanced Practice Nurse 01/26/23 Phillip Figueroa MD [address] [address] Consulting Physician General Surgery 10/24/24 Quang Rollins MD Consulting Physician Psychiatry 11/03/16 documented as of this encounter
--- OUTSIDE RECORDS SUMMARY | 2024-11-22 10:59 | XMS_ITS | Encounter Summary ---
Author Organization [facility] Address [address] [place] [address] Phone Care Team Providers Care Paper Sheeter Name Role Phone Silvia Toro MD Primary Care Provider [phone] Encounter Details Date Type Department Care Team (Late st Contact Info) Description 11/20/2024 Results Follow-Up [facility] Geriatric Medicine [address] [place] [address] [address] [place] [address] Silvia Toro MD [address] [place] [address] GERIATRIC MED, [facility] [address] [place] [address] CBC with auto differential, Comprehensive metabolic panel, Lipid panel, Additional followed-up results: 8 Social History Tobacco Use Types Packs/Day Years [...] on file 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
--- OUTSIDE RECORDS SUMMARY | 2024-11-22 10:59 | XMS_ITS | Clinical Summary ---
Author Organization [facility] [employer] [facility] Address [address] [facility] [place] [address] Care Team Providers Care Gum Dipper Name Role Phone Rigo Grier MD, Ritchie Bui Primary Care Provi tarsha Unavailable Source Comments [facility],non-owned Affiliates and Associated Physician Practices is amultiple site organization consisting of ambulatory clinics and hospital sitesin [place], [place], [place] and [place]. This disclosure is being madepursuant to the Care Everywhere program and may not contain all information available regarding this patient. Last updated 17.[facility] Allergies Active Allergy Reactions Criticality Noted Date Comments Sulfa Drugs Rash Medium 01/24/2018 Medications * Be aware that medications may not be up to date on this document. Alwaysverify current medications with the patient. 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 Gender Identity Not on file Sexual Orientation Not on file Last Filed Vital Signs Vital Sign Reading Time Taken Comments Blood Pressure 150/86 10/18/2019 12:39 PM CDT Pulse 80 10/18/2019 12:39 PM CDT Temperature - - Respiratory Rate - - Oxygen Saturation - - Inhaled Oxygen Concentration - - Weight 63.5 kg (140 lb) 10/18/2019 9:22 AM CDT Height 154.9 cm (5' 1) 10/18/2019 9:22 AM CDT Body Mass Index 26.45 10/18/2019 9:22 AM CDT Plan of Treatment Health Maintenance Due Date Last Done Comments BONE DENSITY TESTING 1940 MEDICARE AWV 12 MONTHS 1940 DTAP/TDAP/TD VACCINES (1 - Tdap) 07/07/1958 PNEUMOCOCCAL VACCINE 50+ (1 of 1 - PCV) 07/07/1989 ZOSTER VACCINE (1 of 2) 07/07/1989 Respiratory Syncytial Virus (RSV) Vaccine Pt: or over 60 yrs (1 - 1-dose 75+ series) 07/07/2014 DEPRESSION SCREENING 02/07/2024 COVID-19 VACCINE (2024- season) 2024 08/17/2021, 04/17/2020, 03/20/2020 INFLUENZA VACCINE (#1) 2024 , 11/22/2018, 11/15/2017, Additional history exists HEPATITIS B VACCINE Aged Out No longe r eligible based on patient's age to complete this topic HIB VACCINE Aged Out No longer eligi ble based on patient's age to complete this topic HPV VACCINE Aged Out No longer eligi ble based on patient's age to complete this topic MENINGOCOCCAL (Group B) VACCINE SHARED DECISION-MAKING Aged Out No longer eligible based on patient's age to complete this topic MENINGOCOCCAL GROUPS A/C/Y/W VACCINE Aged Out No longer eligible based on patient's age to complete this topic Insurance MEDICARE [facility] [employer] Care Teams Gum Dipper Relationship Specialty Start Date End Date Ritchie Sierra Jr., MD PCP - General 11/30/17
--- OUTSIDE RECORDS SUMMARY | 2024-11-22 11:00 | XMS_ITS | Clinical Summary ---
Author Organization [facility] Address [address] [facility], [address] [address] Phone Care Team Providers Care Netting Inspector Name Role Phone Patricia Mcginnis MD Unavailable [phone] Kandice Rollins NP Unavailable Unavailable Belinda Ha DO Unavailable [phone] [facility] APRN, EMPLOYEE REPRESENTATIVE Unavailable Rosmery Rico MD Primary Care Provider [phone] Phillip Figueroa MD Unavailable [phone] Allergies Active Allergy Reactions Criticality Noted Date Comments Penicillins Diarrhea 10/19/2020 Sulfa Antibiotics Unknown 03/03/2015 Medications Calcium Carbonate-Vitam in D (CALCIUM + D PO) Take 1,000 mg by mouth daily. Active traZODone (DESYREL) 50 MG Tablet TAKE 1 TAB BY MOUTH NIGHTLY. 90 Tab 1 8 Active DULoxetine (CYMBALTA) [address] Particles Take 2 Caps by mouth daily. 60 Cap 5 9 Active cholecalciferol 25 mcg Tablet Take 1,000 Units by mouth. 9 Active Diclofenac Sodium (VOLTAREN) 1 % Gel Apply 4 g as needed for Other (Pain). on back 7 Active buPROPion (WELLBUTRIN) 300 MG TABLET SR 24 HR XL tablet TAKE 1 TABLET BY MOUTH EVERY DAY IN THE MORNING 1 Active amLODIPine (NORVASC) 5 MG TabletIndicatio ns:Hypertension , essential Take 1 Tablet by mouth daily. 90 Tablet 2 Active Additional Information Patient not taking.Reported on 10/24/2024 levothyroxine (SYNTHROID) 25 MCG Tablet TAKE 1 TABLET BY MOUTH DAILY 90 Tablet 3 3 Active ipratropium (ATROVENT) 0.03 % Solution USE 2 SPRAYS IN EACH NOSTRIL THREE TIMES DAILY 3 Active traMADol (ULTRAM) 50 MG TabletIndicatio ns:Arthritis Take 1 Tablet by mouth every 8 hours as needed for Moderate or more severe pain or Severe pain. 28 Tablet 1 4 Active buPROPion (WELLBUTRIN) 300 MG TABLET SR 24 HR XL tablet Take 1 Tablet by mouth daily. 4 Active felodipine (PLENDIL) 5 MG TABLET SR 24 HR Take 5 mg by mouth daily. 5 Active metoprolol tartrate (LOPRESSOR) 25 MG Tablet Take 25 mg by mouth 2 times daily. 5 Active colesevelam (WELCHOL) 625 MG Tablet Take 2 Tablets by mouth 2 times daily. 120 Tablet 2 5 Active Active Problems Problem Noted Date Diagnosed [...] Chronic kidney disease, stage I 04/03/2015 05/31/2018 Encounters Date Type Department Care Team Description 11/19/2024 [facility] [address] [place] [address] Provider, Not On File Osteoporosis screening (Primary Dx); Other osteoporosis without current pathological fracture 10/24/2024 2:00 PM CDT [facility] #[address] [place] [address] Phillip Figueroa MD Diarrhea, unspecified type (Primary Dx) Discharge Disposition: Discharged to home or Selfcare 10/24/2024 Travel 10/03/2024 [facility] [place] [address] Paige Goldman APRN, EMPLOYEE REPRESENTATIVE Medication Management 10/01/2024 Telephone [facility] Gastroenterology - [place] [address] [place] [address] Paige Goldman APRN, CNP Skin Problem; Medication Management 09/17/2024 Refill [facility] - Gastroenterology - [place] [address] [place] [address] Paige Goldman APRN, CNP 09/10/2024 11:00 AM CDT Office Visit [facility] Gastroenterology - [place] [address] [place] [address] Paige Goldman APRN, YAYO Irritable bowel syndrome with diarrhea (Primary Dx) Discharge Disposition: Discharged to home or Selfcare 09/10/2024 Travel from Last 3 Months Immunizations Immunization Administration Dates Next Due Covid-19, [...] Sign Reading Time Taken Comments Blood Pressure 114/58 10/24/2024 2:04 PM CDT Pulse 68 09/10/2024 11:13 AM CDT Temperature 36.8 C (98.2 F) 10/24/2024 2:04 PM CDT Respiratory Rate 14 10/24/2024 2:04 PM CDT Oxygen Saturation 100% 09/10/2024 11: 13 AM CDT Inhaled Oxygen Concentration - - Weight 61.1 kg (134 lb 12.8 oz) 10/24/2024 2:04 PM CDT Height 154.9 cm (5' 1) 10/24/2024 2:04 PM CDT Body Mass Index 25.47 10/24/2024 2:04 PM CDT Plan of Treatment Upcoming Encounters Date Type Department Care Team (Late st Contact Info) Description 11/26/2024 9:30 AM CDT Appointment [facility] Mammography [address] [place] [address] Provider, Not On File [place] Silvia Toro MD [address] [facility] 2 [place] [address] Discharge Disposition: Discharged to home or Selfcare Health Maintenance Due Date Last Done Comments DEXA Bone Density 07/23/2011 07/22/2009 Medicare Subsequent AWV [id number] 08/03/2019 08/02/2018 Influenza Immunization (#1) 10/07/202411/07, 11/08/2022, 11/16/2021, Additional history exists SARS-COV-2 Immunization ( season) 2025 11/01/2024, 10/24/2023, 11/13/2022, Additional history exists Td Immunization Every 10 [...] on patient's age to complete this topic Human Papillomavirus (HPV) Immunization Aged Out No longer eligible based on patient's age to complete this topic Meningococcal Immunization (ACWY) Aged Out No longer eligible based on patient's age to complete this topic Rotavirus Immunization Aged Out No lo nger eligible based on patient's age to complete this topic Procedures Procedure Name Priority Date/Time Associated Diagnosis Comments HEPATITIS C ANTIBODY Routine 02/24/2023 9:42 AM AIRCRAFT MAINTENANCE ENGINEER Encounter for hepatitis C screening test for low risk patient from Last 3 Months or Most Recently Relevant to Health Maintenance Results * HEPATITIS C ANTIBODY (02/24/2023 9:42 AM AIRCRAFT MAINTENANCE ENGINEER) hepatitis C antibody 0.11 <1 S/[facility] ARCH [id number] B 02/24/2023 9:39 PM AIRCRAFT MAINTENANCE ENGINEER [facility] Comment: Signal/Cutoff ratio < 0.79 is Nondetected Signal/Cutoff ratio 0.80-0.99 is Grayzone Signal/Cutoff ratio > 0.99 is Detected Supplemental assays are recommended if signal/cutoff ratio is >/=1.00. Signal/cutoff ratio result >/= 5.00 is 97% predictive of positivity for recombinant immunoblot assay (RIBA) and will be reported to the [place] [facility] as required. Blood Venipuncture / Unknown 02/24/2023 9:42 AM AIRCRAFT MAINTENANCE ENGINEER 02/24/2023 9:42 AM AIRCRAFT MAINTENANCE ENGINEER us Vincent Costello MD CHEMISTRY ORDERABLES Loreto giraldo Result [facility] [address] [place] [address], from Last 3 Months or Most Recently Relevant to Health Maintenance Insurance MEDICARE [employer] Advance Directives * Full Code (Latest Code [...] documentation made in notes? Yes Care Teams Netting Inspector Relationship Specialty Start Date End Date Rosmery Rico MD [address] [place] [address] PCP - General Family Medicine 09/01/23 Patricia Mcginnis MD [address] DIV IM NEPHROLOGY, [address] [address] Consulting Physician Nephrology 05/03/16 Kandice Rollins NP [address] DIV IM NEPHROLOGY, [address] [address] Nurse Practitioner Psychiatry 01/30/20 Belinda Ha DO [address] [place] [address] Dr Char Escalera [address] [address] Consulting Physician Otolaryngology 02/24/23 Paige Goldman APRN, EMPLOYEE REPRESENTATIVE [address] [place] [address] Nurse Practitioner Advanced Practice Nurse 01/26/23 Phillip Figueroa MD [address] [address] Consulting Physician General Surgery 10/24/24 Quang Rollins MD Consulting Physician Psychiatry 11/03/16
--- NOTE | 2024-11-22 11:22 | ECG_ITS ---
Test Date: 2024-11-22 11:29:20 Measurements Intervals [place]ins Rate: 56 P: 51 CO: 136 QRS: -28 QRSD: 81 T: 4 QT: 399 QTc: 388 Interpretive Statements SINUS BRADYCARDIA VOLTAGE CRITERIA FOR LVH POOR R WAVE PROGRESSION BORDERLINE ST-T WAVE ABNORMALITY- ANTEROLAT/INF LEADS BASELINE ARTIFACT- I, II, III, AVR, AVL, AVF, V4 ABNORMAL ECG No previous ECG available for comparison Electronically Signed On 11-22-2024 15:21:25 CDT by Nestor Breaux D.O.
--- NOTE | 2024-11-22 11:32 | ED_ITS ---
HPI - General Adult General Chief complaint: Fall Stated complaint: fall, hit head, dizzy Time Seen by Provider: 11/22/24 10:43 History of Present Illness HPI narrative: 84-year-old female presents to the emergency department for evaluation for lightheaded dizziness over the past few days. Patient states symptoms have been present for the last few days. Patient reports he does have associated cough without congestion. Patient denies any nausea vomiting diarrhea. Patient denies any generalized weakness. Patient states she is eating and drinking okay. Patient did have a fall last night and struck her head. Patient is not on blood thinners. Related Data Home Medications ?Medication ?Instructions ?Recorded ?Confirmed ?Last Taken ?Type cholecalciferol (vitamin D3) 25 25 mcg PO DAILY 11/22/24 11/21/24 History mcg (1,000 unit) capsule (Vitamin D3) diclofenac sodium 1.5 % topical 1 pkg topical DAILY 11/22/24 11/21/24 History drops-menthol 10 % roll-on combo pack ipratropium bromide 21 mcg (0.03 2 spray intranasal TI D 08/07/23 11/22/24 11/21/24 History %) nasal spray colestipol 1 gram tablet 1 g PO ONCE 02/19/24 5 11/21/24 History Allergies Allergy/AdvReac Type Severity Reaction Status Date / Time losartan Allergy Mild Itching Verified 11/22/24 15:34 Sulfa (Sulfonamide Allergy Unknown Rash Verified 11/22/24 15:34 Antibiotics) Penicillins AdvReac Mild Diarrhea Verified 11/22/24 15:34 lisinopril AdvReac Cough Verified 11/22/24 15:34 Review of Systems 2 Review of Systems: All systems reviewed & are unremarkable except as noted in HPI and below PMFSH Past Medical History Medical History H/O nonmelanoma skin cancer Anxiety Irritable bowel syndrome Chronic renal insufficiency Insomnia Gastroesophageal reflux Osteoarthritis Hypothyroidism Depression Essential hypertension Surgical History Surgical History H/O lumbosacral spine surgery History of ankle surgery Total knee replacement status Bilateral Family History Family History Father Hypertension Depression Hypothyroidism Renal disease Sibling Depression Alcoholism Social History Social History Smoking packs per day: 1 Smoking cigarettes per day: 20.0 Years smoked: 20 Smoking pack-years: 20.00 Smoking status: Never smoker Alcohol intake: current Drinks per week: 10 Substance use: never Do You Feel Safe in your Home?: Yes Lack of Transportation: No Exam 2 Narrative: APPEARANCE: Well appearing, no pain, no distress, well-nourished. HEAD: normocephalic, atraumatic. EYES: PERRLA/EOMI, conjunctivae clear. NOSE: Normal no drainage EARS:TMS clear with good light reflex. THROAT: Pharynx clear, no exudate. NECK: Supple. No adenopathy, no masses. RESPIRATORY: Airway patent, respirations nonlabored. Clear to auscultation bilaterally, no rales, rhonchi, wheezing. CARDIOVASCULAR: Regular rate and rhythm without murmurs rubs or gallops. ABDOMINAL: Soft, nontender, nondistended, normal bowel sounds MUSCULOSKELETAL: Moves all extremities. Strength/ROM intact, No edema, No calf tenderness. NEURO: Alert. Cranial nerves II through XII intact. Good gait. Good coordination SKIN: Warm, dry. Normal Color Course Vital Signs Vital signs: Vital Signs Temperature 97.8 F 11/22/24 10:25 Pulse Rate 63 11/22/24 10:25 Respiratory Rate 16 11/22/24 10:25 Blood Pressure 158/83 H 11/22/24 10:25 Pulse Oximetry 100 11/22/24 10:25 Temperature 97.8 F 11/22/24 10:25 Pulse Rate 86 11/22/24 17:46 Respiratory Rate 18 11/22/24 17:46 Blood Pressure 140/91 H 11/22/24 17:46 Pulse Oximetry 98 11/22/24 17:46 Medical Decision Making [facility] Narrative Medical decision making narrative: 84-year-old female presents emergency department for evaluation for lightheaded dizziness resulting in a head injury. Head and cervical spine CT were negative. Patient was symptomatic when standing but patient did have negative orthostatic vitals. Patient will be evaluated for viral etiology, urinary tract infection, pneumonia. Patient will be treated with meclizine and IV fluids. Patient and family are updated the results of workup and plan for treatment. All questions concerns were addressed. On re-evaluation patient states she feels that her dizziness is worsened. Patient is currently afebrile no leukocytosis hemoglobin 14. Patient has no significant abnormalities on her CMP with a creatinine of 1.48 with no previous documented kidney function. UA was negative for infection. Patient was negative for influenza RSV and for COVID. Chest x-ray shows no acute cardiopulmonary mallet. Head CT was negative for acute intracranial abnormality and CT cervical spine was negative for acute fracture dislocation. On re-evaluation patient states she feels no improvement in patient's blood pressure is now more elevated. This could be secondary to anxiety or secondary to the IV fluids. Patient was treated with hydralazine to help with the elevated blood pressure. I did update the family and patient on the results of the workup with no significant abnormalities other than a mildly elevated creatinine. Patient states he does not feel comfortable going home and is afraid she is going to have an additional fall. I discussed the case with the hospitalist patient will be admitted to the IMU for further evaluation. Differential Diagnosis Differential Diagnosis: COVID, RSV, influenza, pneumonia, UTI, dehydration, subdural hematoma subarachnoid hemorrhage, cervical spine fracture, hypertensive urgency Vital Signs Vital Signs: Vital Signs Temperature 97.8 F 11/22/24 10:25 Pulse Rate 63 11/22/24 10:25 Respiratory Rate 16 11/22/24 10:25 Blood Pressure 158/83 H 11/22/24 10:25 Pulse Oximetry 100 11/22/24 10:25 Temperature 97.8 F 11/22/24 10:25 Pulse Rate 86 11/22/24 17:46 Respiratory Rate 18 11/22/24 17:46 Blood Pressure 140/91 H 11/22/24 17:46 Pulse Oximetry 98 11/22/24 17:46 Lab Data Lab results reviewed: Yes I reviewed the patient's lab results. 11/22/24 11:51 11/22/24 11:51 Labs: Lab Results 11/22/24 Range/Units 11:51 WBC 8.2 (4.5-10.0) K/mm3 RBC 4.82 (4.2-5.4) M/mm3 Hgb 14.0 (12.0-15.0) g/dL Hct 44.9 (37.0-47.0) % MCV 93.2 (80-100) fl MCH 29.0 (26-34) pg MCHC 31.2 L (32-36) g/dl RDW 14.1 (11.5-14.5) % Plt Count 294 (150-375) k/mm3 MPV 9.1 (7.4-10.4) fl Immature Gran % (Auto) 0.4 (0-0.5) % Neut % (Auto) 65.8 (45.5-73.1) % Lymph % (Auto) 17.8 L (18.3-44.2) % Benson % (Auto) 9.7 H (2.6-8.5) % Eos % (Auto) 5.3 H (0-4.4) % Baso % (Auto) 1.0 (0.2-1.2) % Lymph # (Auto) 1.45 (0.9-3.2) K/mm3 Benson # (Auto) 0.8 H (0.1-0.6) K/mm3 Eos # (Auto) 0.4 H (0-0.3) K/mm3 Baso # (Auto) 0.1 (0.0-0.1) K/mm3 Abs Immat Gran (auto) 0.03 (0.00-0.031) K/mm3 Absolute Neuts (auto) 5.4 (1.3-6.7) K/mm3 Absolute Nucleated RBC 0.000 (0.0-0.012) K/mm3 Nucleated RBC % 0.0 (0.0-0.2) % Sodium 140 (137-145) mmol/L Potassium 4.7 (3.4-5.0) mmol/L Chloride 107 (98-107) mmol/L Carbon Dioxide 26 (22-30) mmol/L Anion Gap 7 (4-12) mmol/L BUN 46 H (7-17) mg/dL Creatinine 1.48 H (0.7-1.0) mg/dL Estim Creat Clear Calc 20 ml/min Estimated GFR 34 L (59 - ) Glucose 93 (65-110) mg/dL Calcium 9.4 (8.4-10.2) mg/dL Total Bilirubin 0.3 (0.2-1.3) mg/dL AST 29 (14-36) U/L ALT 21 (6-35) U/L Alkaline Phosphatase 83 (38-126) U/L Total Protein 7.1 (6.3-8.2) g/dL Albumin 4.3 (3.5-5.1) g/dL Urine Color Yellow (Yellow) Urine Appearance Clear (Clear) Urine pH 5.5 (5.0-9.0) Ur Specific [place] 1.019 (1.001-1.035) Urine Protein Negative (Negative) mg/dL Urine Glucose (UA) Negative (Negative) mg/dL Urine Ketones Negative (Negative) mg/dL Ur Blood (Man) Negative (Negative) Urine Nitrate Negative (Negative) Urine Bilirubin Negative (Negative) Urine Urobilinogen 0.2 (<2.0) mg/dL Add Ur Microanalysis Reviewed Leukocyte Esterase Rfl 2+ H (Negative) GLENNA/UL Urine RBC 0-2 (0-2) /hpf Urine WBC 0-5 (0-3) /hpf Ur Squamous Epith Cells None seen (Few) /hpf Urine Bacteria None seen /hpf Urine Casts 0-2 Influenza A (RT-PCR) Negative (Negative) Influenza B (RT-PCR) Negative (Negative) RSV (RT-PCR) Negative (Negative) SARS-CoV-2 RNA (RT-PCR) Negative (Negative) Imaging Data Radiologist's impression: Impressions Head CT 11/22/24 10:55 Impression: 1.No acute intracranial abnormality. Cervical Spine CT 11/22/24 11:03 IMPRESSION: 1. No fracture. 2. Severe cervical spondylosis. Chest X-Ray 11/22/24 12:18 IMPRESSION: 1. No acute cardiopulmonary findings given portable technique. Discharge Plan Discharge Clinical Impression: HTN (hypertension), Lightheadedness, Head injury Patient Disposition: Still a Patient Condition: Serious
[2024-11-22] MEDS: MECLIZINE HCL 25 MG TABLET PO (11:52)
[2024-11-22] MEDS: LACTATED RINGERS 1,000 ML 999 ML IV CONT (11:52)
[2024-11-22 12:03] LABS: Hematocrit 44.9 % (37.0-47.0); Hemoglobin 14.0 g/dL (12.0-15.0); Immature Granulocyte Percent A 0.4 % (0-0.5); Lymphocytes Absolute Auto 1.45 K/mm3 (0.9-3.2); Mean Corpuscular HGB Conc 31.2 g/dl (32-36); Mean Corpuscular Hemoglobin 29.0 pg (26-34); Mean Corpuscular Volume 93.2 fl (80-100); Nucleated Red Blood Cells Absolute Auto 0.000 K/mm3 (0.0-0.012); Nucleated Red Blood Cells Perc 0.0 % (0.0-0.2); Platelet Count Result 294 k/mm3 (150-375); Red Blood Count 4.82 M/mm3 (4.2-5.4); White Blood Count 8.2 K/mm3 (4.5-10.0)
[2024-11-22 12:19] LABS: Alanine Aminotransferase 21 U/L (6-35); Albumin Level 4.3 g/dL (3.5-5.1); Alkaline Phosphatase 83 U/L (38-126); Anion Gap 7 mmol/L (4-12); Aspartate Amino Transferase 29 U/L (14-36); Bilirubin,Total 0.3 mg/dL (0.2-1.3); Blood Urea Nitrogen 46 mg/dL (7-17); Calcium 9.4 mg/dL (8.4-10.2); Carbon Dioxide 26 mmol/L (22-30); Chloride 107 mmol/L (98-107); Estimated CRCL calculation 20 ml/min; Estimated Glomerular Filt Rate 34; Glucose 93 mg/dL (65-110); Potassium 4.7 mmol/L (3.4-5.0); Sodium 140 mmol/L (137-145); Total Protein 7.1 g/dL (6.3-8.2)
[2024-11-22 12:30] LABS: Add Urine Microscopic? YES; Appearance Urine Clear (Clear); Glucose Urine UA Negative (Negative); Leukocyte Esterase Ur 2+ LEU/UL (Negative); Need Manual Microscopic Reviewed; Nitrate Urine Negative (Negative); Non Pathogenic Casts 0-2; Specific Grav Ur 1.019 (1.001-1.035)
[2024-11-22 13:57] LABS: Influenza A QL RT-PCR Negative (Negative); Influenza B QL RT-PCR Negative (Negative); RSV RNA, RT-PCR Negative (Negative); SARS-CoV-2 RNA PCR Negative (Negative)
--- NOTE | 2024-11-22 15:41 | P.HP_ITS ---
H&P: HPI History of Present Illness Date/Time: 11/22/24 15:41 Chief Complaint: Dizziness lightheadedness Narrative: 84-year-old female past medical history of insomnia, hypothyroidism, depression presents the hospital after a fall with complaints of dizziness lightheadedness. She states that the symptoms have been going on for a few days. She states that she had the fall yesterday and hit her head she denies being on blood thinners or losing consciousness. Patient still complains of dizziness on bedside exam has no other complaints. Denies fevers chills nausea vomiting. Lab work in the ED shows BUN of 36, creatinine of 1.48 which is around baseline UA with 2+ leukocyte esterase. Influenza A/B RSV COVID negative. Chest x-ray with no acute findings. CT cervical spine with no acute fractures. Head CT with no acute findings. EKG shows sinus Prashanth a with rate of 56. In the emergency room her blood pressure is 220/94 with map of 136. She will be admitted for hypertensive emergency. Review of Systems Review of Systems: 12 systems were reviewed and are negativ e except for as per HPI. [facility] Past Medical History Medical History H/O nonmelanoma skin cancer Anxiety Irritable bowel syndrome Chronic renal insufficiency Insomnia Gastroesophageal reflux Osteoarthritis Hypothyroidism Depression Essential hypertension Surgical History Surgical History H/O lumbosacral spine surgery History of ankle surgery Total knee replacement status Bilateral Family History Family History Father Hypertension Depression Hypothyroidism Renal disease Sibling Depression Alcoholism Social History Social History Smoking packs per day: 1 Smoking cigarettes per day: 20.0 Years smoked: 20 Smoking pack-years: 20.00 Smoking status: Former smoker Tobacco type: cigarettes Second hand tobacco smoke exposure: Yes Alcohol intake: current Drinks per week: 6 Substance use: never Substance use type: does not use Do You Feel Safe in your Home?: Yes Lack of Transportation: No Lack of Food: Never True Current Housing: I Have Housing Concerned About Future Housing: No Difficulty Paying Gas/Electric Bills: No Difficulty Paying for Meds: No Currently Unemployed: No Education: Master's Degree or Higher Difficulty w/ Childcare or Family Care: No Spiritual care concerns: No Meds Home Medications and Allergies Home Medications ?Medication ?Instructions ?Recorded ?Confirmed ?Type cholecalciferol (vitamin D3) 25 25 mcg PO DAILY 11/22/24 History mcg (1,000 unit) capsule (Vitamin D3) diclofenac sodium 1.5 % topical 1 pkg topical DAILY 11/22/24 History drops-menthol 10 % roll-on combo pack ipratropium bromide 21 mcg (0.03 2 spray intranasal TI D 08/07/23 11/22/24 History %) nasal spray trazodone 50 mg tablet 50 mg PO QHS PRN insomnia #9 0 tabs 05/24/24 11/22/24 Rx metoprolol tartrate 25 mg tablet 25 mg PO BID #180 tab s 07/14/24 11/22/24 Rx tramadol 50 mg tablet 50 mg PO Q6H PRN pain #30 ta bs 11/13/24 11/22/24 Rx levothyroxine 25 mcg tablet See Rx Instructions .Route 11/17/24 11/22/24 Rx .COMPLEX #90 tabs colesevelam 625 mg tablet 1,250 mg PO Q12H 11/22/24 History duloxetine 60 mg capsule,delayed 60 mg PO Q12H 5 11/22/24 History release Allergies Allergy/AdvReac Type Severity Reaction Status Date / Time losartan Allergy Mild Itching Verified 11/22/24 18:45 Sulfa (Sulfonamide Allergy Unknown Rash Verified 11/22/24 18:45 Antibiotics) Penicillins AdvReac Mild Diarrhea Verified 11/22/24 18:45 lisinopril AdvReac Cough Verified 11/22/24 18:45 Vital Signs Vital Signs - 24 hr 11/22/24 10:25 11/22/24 11:16 11/22/24 11:17 Temperature 97.8 F Pulse Rate 63 59 L 58 L Respiratory Rate 16 10 L Blood Pressure 158/83 H 129/81 Pulse Oximetry 100 94 11/22/24 11:17 11/22/24 11:17 11/22/24 11:20 Temperature Pulse Rate 60 59 L 63 Respiratory Rate 13 Blood Pressure 106/79 129/81 119/73 Pulse Oximetry 94 11/22/24 11:20 11/22/24 11:41 11/22/24 11:45 Temperature Pulse Rate 60 61 61 Respiratory Rate 21 H 16 22 H Blood Pressure 106/79 Pulse Oximetry 97 97 97 11/22/24 12:00 11/22/24 12:01 11/22/24 12:15 Temperature Pulse Rate 61 61 63 Respiratory Rate 13 18 18 Blood Pressure Pulse Oximetry 100 99 98 11/22/24 12:26 11/22/24 12:30 11/22/24 12:31 Temperature Pulse Rate 63 63 64 Respiratory Rate 18 14 19 Blood Pressure 166/86 H 206/95 H Pulse Oximetry 100 100 11/22/24 12:45 11/22/24 12:59 11/22/24 13:00 Temperature Pulse Rate 64 67 64 Respiratory Rate 17 21 H 20 Blood Pressure 190/89 H Pulse Oximetry 98 100 99 11/22/24 13:01 11/22/24 13:15 11/22/24 13:57 Temperature Pulse Rate 66 64 61 Respiratory Rate 18 24 H 17 Blood Pressure 193/80 H 186/88 H Pulse Oximetry 98 94 98 11/22/24 14:32 11/22/24 15:13 11/22/24 15:15 Temperature Pulse Rate 63 67 67 Respiratory Rate 12 15 11 L Blood Pressure 176/101 H 220/94 H Pulse Oximetry 97 93 93 Exam Narrative: General: well appearing, appears stated age. HEENT: normocephalic, atraumatic. Mucous membranes moist. EOMI, PERRLA, bilateral sclera anicteric, no conjunctival injection. Neck supple without JVD, lymphadenopathy, or bruit. Respiratory: clear to ascultation bilaterally. No rales/rhonic/wheezes. Cardiovascular: Regular rate and rhythm, normal S1-S2 upon ascultation. No murmurs, rubs, or clicks. PMI is nondisplaced, capillary refill less than 3 second. Abdomen: Soft, round, no pulsatile masses, nondistended and nontender. No rebound, no guarding. No CVA tenderness, no hepatosplenomegaly. Bowel sounds present to all four quadrants. No high pitch or tinkling sounds, resonant to percussion. Extremities: No cyanosis, clubbing, or edema present. Pulses are palpable 2/2. Active ROM to all four extremities. Neuro: Alert and orientated x 4. PERRLA. Cranial nerves 2-12 intact without focal deficit. Skin: Warm, dry, and intact, without rash, erythema, or lesion. Psych: pleasant, cooperative, normal speech, normal affect, no hallucinations, no dysarthia H&P: Results Labs Labs: Short CBC 11/22/24 Range/Units 11:51 WBC 8.2 (4.5-10.0) K/mm3 Hgb 14.0 (12.0-15.0) g/dL Hct 44.9 (37.0-47.0) % Plt Count 294 (150-375) k/mm3 BMP 11/22/24 11:51 Sodium 140 Potassium 4.7 Chloride 107 Carbon Dioxide 26 BUN 46 H Creatinine 1.48 H Glucose 93 Calcium 9.4 Liver Function 11/22/24 Range/Units 11:51 Total Bilirubin 0.3 (0.2-1.3) mg/dL AST 29 (14-36) U/L ALT 21 (6-35) U/L Alkaline Phosphatase 83 (38-126) U/L Albumin 4.3 (3.5-5.1) g/dL Urine 11/22/24 Range/Units 11:51 Urine Color Yellow (Yellow) Urine Appearance Clear (Clear) Urine pH 5.5 (5.0-9.0) Ur Specific [place] 1.019 (1.001-1.035) Urine Protein Negative (Negative) mg/dL Urine Glucose (UA) Negative (Negative) mg/dL Assessment and Plan Assessment and plan (1) Lightheadedness: Code(s): R42 - Dizziness and giddiness Status: Acute Assessment and Plan: Lightheadedness and dizziness Denies losing consciousness Meclizine and Valium Echo with bubble (2) Hypertensive emergency: Code(s): I16.1 - Hypertensive emergency Status: Acute Assessment and Plan: Hydralazine p.r.n. Patient does not appear to be on blood pressure medications (3) Fall: Code(s): W19.XXXA - Unspecified fall, initial encounter Status: Acute Assessment and Plan: Fall precautions Trauma workup negative (4) Depression: Code(s): F32.A - Depression, unspecified Status: Acute Assessment and Plan: Continue duloxetine (5) Chronic renal insufficiency: Qualifiers: Chronic kidney disease stage: stage 3 (moderate) Chronic kidney disease stage 3 subtype: stage 3b (GFR 30-44) Qualified Code(s): N28.89 - Other specified disorders of kidney and ureter Code(s): N18.9 - Chronic kidney disease, unspecified Status: Acute Assessment and Plan: Creatinine at baseline BMP in the morning to monitor Quality VTE Prophylaxis VTE prophylaxis: mechanical ordered and pharmacologic ordered Hospitalist [facility] Advance Care Plan I have confirmed that the patient's Advanced Care Plan is present, code status is documented, or surrogate decision maker is listed in patient medical record.: Yes Medication Reconciliation I have utilized all available resources to obtain, update and review the patients current medications (includes all prescriptions, OTC, herbals, cannabis, and nutritional supplements).: Yes
[2024-11-22] MEDS: cefTRIAXone 1 GM in SODIUM CHLORIDE 0.9% IV 50 ML 100 ML IVPB (17:01)
--- NOTE | 2024-11-22 18:49 | ADMGEN ---
This patient, Debbie Wallis, was admitted to IMU Room 206-02. Patient/family oriented to hospital policies and general routines including ID bracelet, bed and alarms, visiting hours, pain management, procedures, bathroom and other care routines, personal items, smoking policy, room service/diet, and visiting hours. Pt has phone/phone emergency medicine physician Information on how to activate the Rapid Response Team has been discussed. Patient/Family are encouraged to report perceived risks to care and to ask questions if they do not understand what they are told or what they should do.
[2024-11-22] MEDS: MECLIZINE HCL 6.25 MG TABLET PO (20:44)
[2024-11-22] MEDS: METOPROLOL TARTRATE 25 MG TABLET PO (20:44)
[2024-11-22] MEDS: DULoxetine HCL 60 MG CAPSULE.DR PO (20:57)
[2024-11-23] VITALS (9 sets, daily range): BP systolic 107–152; BP diastolic 44–87; PULSE 59–84; RESP 16–20; TEMP 36.3–36.8; O2SAT 93–97
--- NOTE | 2024-11-23 | ECHO_ITS ---
Patient Info Name: Debbie Wallis Age: 84 years : 1940 Gender: Female Ht: 61 in Wt: 105 lbs BSA: 1.43 m2 HR: 64 bpm BP: 152 / 87 mmHg Technical Quality: Good Exam Date: 11/23/2024 9:18 AM Patient Status: unknown Admit Date: 11/22/2024 Exam Type: CA echo doppler w bubble study Complete two-dimensional, color flow and Doppler transthoracic echocardiogram is performed with agitated saline. Staff Referring Physician: Dallas Arrington [employer] Manager: Perla Padilla Attending Provider: Merrick Mock Contrast/Agitated Saline Contrast/Ag. Saline: Agitated Saline Amount: 20.00 ml Summary 1. Normal LV size and wall thickness, normal LV systolic function; LV ejection fraction calculated at 60 1%. Grade 1 diastolic dysfunction with elevated left heart pressures. Normal RV size and systolic function. Mild left enlargement. Normal right atrial size. Bubble study negative for right to left interatrial shunt. Normal mitral valve structure, trivial MR. Normal aortic valve structure, no hemodynamically significant stenosis. Trivial tricuspid regurgitation, RVSP 31 mmHg. Normal aortic root size. Normal IVC size with normal respiratory collapse. Left Ventricular Outflow Tract Name Value Normal LVOT 2D LVOT Diameter 2.0 cm LVOT Doppler LVOT Peak Velocity 103 cm/s LVOT Peak Gradient 4 mmHg LVOT Mean Gradient 2 mmHg LVOT VTI 29 cm LVOT Stroke Volume 87 ml LVOT CO 5.2 l/min LVOT CI 3.6 l/min/m2 Pulmonic Valve Name Value Normal RVOT Doppler RVOT Peak Velocity 90 cm/s RVOT Peak Gradient 3 mmHg PV Doppler PV Peak Velocity 132 cm/s PV Peak Gradient 7 mmHg Mitral Valve Name Value Normal MV Diastolic Function MV E Peak Velocity 91 cm/s MV A Peak Velocity 140 cm/s MV E/A 0.7 MV Decel Time (PW) 226 ms MV Annular TDI MV E/e' (Septal) 22.3 MV E/e' (Lateral) 13.4 MV E/e' (Average) 17.9 Tricuspid Valve Name Value Normal TV Regurgitation Doppler TR Peak Velocity 253 cm/s TR Peak Gradient 26 mmHg Aortic Valve Name Value Normal AV Doppler AV Peak Velocity 137 cm/s AV Peak Gradient 8 mmHg AV Area (Cont Eq Robert) 2.2 cm2 AV DI (Robert) 0.75 AV Regurgitation 2D LVOT Area 3.0 cm2 Ventricles Name Value Normal LV Dimensions 2D/MM IVS Diastolic Thickness (2D) 1.0 cm 0.6-1.0 LVID Diastole (2D) 4.2 cm 3.8-5.2 LVIW Diastolic Thickness (2D) 1.0 cm 0.6-0.9 LVID Systole (2D) 2.9 cm 2.2-3.5 LVOT Diameter 2.0 cm LV Mass (2D Cubed) 138.79 g 67.00-162.00 LV Mass Index (2D Cubed) 97 g/m2 43-95 Relative Wall Thickness (2D) 0.49 <=0.42 LV Fractional Shortening/Ejection Fraction 2D/MM LV Fractional Shortening (2D) 31 % 27-45 LV EF (2D Teichholz) 59 % LV Diastolic Volume (4C MOD) 78 ml LV EF (4C MOD) 57 % LV Diastolic Volume (2C MOD) 71 ml LV EF (2C MOD) 64 % LV Diastolic Volume (BP MOD) 76 ml 46-106 LV Diastolic Volume Index (BP MOD) 53 ml/m2 29-61 LV Systolic Volume (BP MOD) 30 ml 14-42 LV Systolic Volume Index (BP MOD) 21 ml/m2 8-24 LV EF (BP MOD) 61 % 54-74 LV Diastolic Length (4C) 7.1 cm LV Systolic Length (4C) 6.0 cm LV Stroke Volume (4C MOD) 44 ml Atria Name Value Normal LA Dimensions LA Volume (4C A-L) 51 ml LA Volume (BP A-L) 51 ml RA Dimensions RA Systolic Major [place] Length (4C) 4.6 cm 2.2-2.8 RA Area (4C) 8.9 cm2 <=18.0 Report Signatures
[2024-11-23 04:56] LABS: Hematocrit 39.6 % (37.0-47.0); Hemoglobin 12.7 g/dL (12.0-15.0); Immature Granulocyte Percent A 0.3 % (0-0.5); Lymphocytes Absolute Auto 1.57 K/mm3 (0.9-3.2); Mean Corpuscular HGB Conc 32.1 g/dl (32-36); Mean Corpuscular Hemoglobin 29.3 pg (26-34); Mean Corpuscular Volume 91.5 fl (80-100); Nucleated Red Blood Cells Absolute Auto 0.000 K/mm3 (0.0-0.012); Nucleated Red Blood Cells Perc 0.0 % (0.0-0.2); Platelet Count Result 261 k/mm3 (150-375); Red Blood Count 4.33 M/mm3 (4.2-5.4); White Blood Count 7.1 K/mm3 (4.5-10.0)
[2024-11-23 05:19] LABS: Anion Gap 3 mmol/L (4-12); Blood Urea Nitrogen 34 mg/dL (7-17); Calcium 8.7 mg/dL (8.4-10.2); Carbon Dioxide 26 mmol/L (22-30); Chloride 109 mmol/L (98-107); Estimated CRCL calculation 22 ml/min; Estimated Glomerular Filt Rate 40; Glucose 91 mg/dL (65-110); Potassium 4.1 mmol/L (3.4-5.0); Sodium 138 mmol/L (137-145)
[2024-11-23] MEDS: LEVOTHYROXINE SODIUM 25 MCG TABLET BY MOUTH (06:13)
--- NOTE | 2024-11-23 08:49 | P.PNIM_ITS ---
Progress Note: A&P Assessment and Plan (1) Lightheadedness: Code(s): R42 - Dizziness and giddiness Status: Acute Assessment and Plan: Lightheadedness and dizziness Denies losing consciousness Meclizine and Valium Echo with bubble echo still pending (2) Hypertensive emergency: Code(s): I16.1 - Hypertensive emergency Status: Acute Assessment and Plan: Hydralazine p.r.n. Patient does not appear to be on blood pressure medications BP reviewed and overall stable noted that metoprolol was started, may not be jacobo best choice for HTN as pt was bradycardic in ED (3) Fall: Code(s): W19.XXXA - Unspecified fall, initial encounter Status: Acute Assessment and Plan: Fall precautions Trauma workup negative (4) Depression: Code(s): F32.A - Depression, unspecified Status: Acute Assessment and Plan: Continue duloxetine (5) Chronic renal insufficiency: Qualifiers: Chronic kidney disease stage: stage 3 (moderate) Chronic kidney disease stage 3 subtype: stage 3b (GFR 30-44) Qualified Code(s): N28.89 - Other specified disorders of kidney and ureter Code(s): N18.9 - Chronic kidney disease, unspecified Status: Acute Assessment and Plan: Creatinine at baseline BMP in the morning to monitor Subjective Date/time seen: 11/23/24 08:49 Interval history: 84-year-old female past medical history of insomnia, hypothyroidism, depression presents the hospital after a fall with complaints of dizziness lightheadedness. Influenza A/B RSV COVID negative. Chest x-ray with no acute findings. CT cervical spine with no acute fractures. Head CT with no acute findings. EKG shows sinus Prashanth a with rate of 56. In the emergency room her blood pressure is 220/94 with map of 136. She will be admitted for hypertensive emergency. Pt is seen and examined. BP had been stable overall. No chest pain, no sob. Review of Systems Review of Systems: 12 systems were reviewed and are negativ e except for as per HPI. Exam Narrative: General: well appearing, appears stated age. HEENT: normocephalic, atraumatic. Mucous membranes moist. EOMI, PERRLA, bilateral sclera anicteric, no conjunctival injection. Neck supple without JVD, lymphadenopathy, or bruit. Respiratory: clear to ascultation bilaterally. No rales/rhonic/wheezes. Cardiovascular: Regular rate and rhythm, normal S1-S2 upon ascultation. No murmurs, rubs, or clicks. PMI is nondisplaced, capillary refill less than 3 second. Abdomen: Soft, round, no pulsatile masses, nondistended and nontender. No rebound, no guarding. No CVA tenderness, no hepatosplenomegaly. Bowel sounds present to all four quadrants. No high pitch or tinkling sounds, resonant to percussion. Extremities: No cyanosis, clubbing, or edema present. Pulses are palpable 2/2. Active ROM to all four extremities. Neuro: Alert and orientated x 4. PERRLA. Cranial nerves 2-12 intact without focal deficit. Skin: Warm, dry, and intact, without rash, erythema, or lesion. Psych: pleasant, cooperative, normal speech, normal affect, no hallucinations, no dysarthia Objective Data Vital Signs Vital Signs: Vital Signs - 24 hr 11/22/24 10:25 11/22/24 11:16 11/22/24 11:17 Temperature 97.8 F Pulse Rate 63 59 L 58 L Respiratory Rate 16 10 L Blood Pressure 158/83 H 129/81 Pulse Oximetry 100 94 Oxygen Delivery 11/22/24 11:17 11/22/24 11:17 11/22/24 11:20 Temperature Pulse Rate 60 59 L 63 Respiratory Rate 13 Blood Pressure 106/79 129/81 119/73 Pulse Oximetry 94 Oxygen Delivery 11/22/24 11:20 11/22/24 11:41 11/22/24 11:45 Temperature Pulse Rate 60 61 61 Respiratory Rate 21 H 16 22 H Blood Pressure 106/79 Pulse Oximetry 97 97 97 Oxygen Delivery 11/22/24 12:00 11/22/24 12:01 11/22/24 12:15 Temperature Pulse Rate 61 61 63 Respiratory Rate 13 18 18 Blood Pressure Pulse Oximetry 100 99 98 Oxygen Delivery 11/22/24 12:26 11/22/24 12:30 11/22/24 12:31 Temperature Pulse Rate 63 63 64 Respiratory Rate 18 14 19 Blood Pressure 166/86 H 206/95 H Pulse Oximetry 100 100 Oxygen Delivery 11/22/24 12:45 11/22/24 12:59 11/22/24 13:00 Temperature Pulse Rate 64 67 64 Respiratory Rate 17 21 H 20 Blood Pressure 190/89 H Pulse Oximetry 98 100 99 Oxygen Delivery 11/22/24 13:01 11/22/24 13:15 11/22/24 13:57 Temperature Pulse Rate 66 64 61 Respiratory Rate 18 24 H 17 Blood Pressure 193/80 H 186/88 H Pulse Oximetry 98 94 98 Oxygen Delivery 11/22/24 14:32 11/22/24 15:13 11/22/24 15:15 Temperature Pulse Rate 63 67 67 Respiratory Rate 12 15 11 L Blood Pressure 176/101 H 220/94 H Pulse Oximetry 97 93 93 Oxygen Delivery 11/22/24 15:30 11/22/24 15:31 11/22/24 15:53 Temperature Pulse Rate 69 69 73 Respiratory Rate 16 23 H 20 Blood Pressure 143/105 H Pulse Oximetry 95 96 97 Oxygen Delivery 11/22/24 17:07 11/22/24 17:46 11/22/24 20:00 Temperature 98.4 F Pulse Rate 88 86 79 Respiratory Rate 20 18 16 Blood Pressure 140/90 140/91 H 138/64 Pulse Oximetry 95 98 95 Oxygen Delivery 11/22/24 20:00 11/22/24 20:00 11/22/24 20:44 Temperature Pulse Rate 71 78 Respiratory Rate Blood Pressure Pulse Oximetry Oxygen Delivery Room Air 11/22/24 22:00 11/23/24 00:00 11/23/24 00:00 Temperature Pulse Rate 68 68 Respiratory Rate Blood Pressure Pulse Oximetry Oxygen Delivery Room Air 11/23/24 00:00 11/23/24 02:00 11/23/24 04:00 Temperature 98.3 F Pulse Rate 67 61 Respiratory Rate 16 Blood Pressure 152/87 H Pulse Oximetry 97 Oxygen Delivery Room Air 11/23/24 04:00 11/23/24 04:00 11/23/24 06:00 Temperature 98.3 F Pulse Rate 61 59 L 67 Respiratory Rate 16 Blood Pressure 134/76 Pulse Oximetry 96 Oxygen Delivery 11/23/24 08:00 Temperature 97.6 F Pulse Rate 84 Respiratory Rate 20 Blood Pressure 107/44 L Pulse Oximetry 93 Oxygen Delivery Intake/Output Intake/Output: Intake & Output 11/20/24 11/21/24 11/22/24 11/23/24 23:59 23:59 23:59 23:59 Intake Total 1050 300 Output Total 600 Balance 1050 -300 Meds/Results Medications: Active Medications Generic Name Dose Route Start Last Admin Trade Name Freq PRN Reason Stop Dose Admin Acetaminophen 650 mg 11/22/24 15:44 Acetaminophen 325 Mg Tablet PO Q4H PRN Mild Pain (1-3) or Fever Diazepam 5 mg 11/22/24 15:51 Diazepam Inj (*Crx) 10 Mg/2 Ml Syringe IV PUSH Q6HR PRN Vertigo Docusate Sodium 100 mg 11/22/24 15:44 Docusate Sodium 100 Mg Capsule PO BID PRN Constipation Duloxetine HCl 60 mg 11/23/24 09:00 Duloxetine Hcl 60 Mg Capsule.Dr PO Q12HR [facility] Enoxaparin Sodium 30 mg 11/23/24 09:00 Enoxaparin 30 Mg/0.3 Ml Syringe SUB-Q DAILY [facility] Hydralazine HCl 10 mg 11/22/24 15:44 Hydralazine Hcl 20 Mg/Ml Vial IV PUSH Q6HR PRN Blood Pressure - High Ceftriaxone Sodium 1 gm/ 50 mls @ 100 mls/hr 11/23/24 17:00 Sodium Chloride IVPB Q24H [facility] Levothyroxine Sodium 25 mcg 11/22/24 06:30 11/23/24 06:13 Levothyroxine Sodium 25 Mcg Tablet BY MOUTH 25 mcg DAILY@0630 [facility] Administration Meclizine HCl 6.25 mg 11/22/24 17:00 11/22/24 20:44 Meclizine Hcl 6.25 Mg Tablet PO 6.25 mg TID [facility] Administration Metoprolol Tartrate 25 mg 11/22/24 21:00 11/22/24 20:44 Metoprolol Tartrate 25 Mg Tablet PO 25 mg Q12HR [facility] Administration Miscellaneous Information 0 each 11/22/24 00:01 Colesevelam 625mg Nonform Can Pt Bring From Home? XX 12/22/24 00:00 CLARIFY [facility] Non-Formulary Medication 1,250 mg 11/22/24 21:45 Colesevelam PO 12/22/24 21:44 Q12H [facility] Perflutren Lipid Microsphere 0 ml 11/22/24 22:22 Perflutren Lipid Microspheres 1.5 Ml Vial Diluted To 10 Ml Total Volume IV PUSH 11/25/24 22:23 ONCE PRN adequate visualization Protocol Tramadol HCl 50 mg 11/22/24 19:57 Tramadol Hcl (*Crx) 50 Mg Tablet PO Q6H PRN Pain 4-6 Trazodone HCl 50 mg 11/22/24 19:57 11/22/24 20:57 Trazodone Hcl 50 Mg Tablet PO 50 mg QHS PRN Administration Insomnia Vitamin D 25 mcg 11/23/24 09:00 Cholecalciferol (Vitamin D3) 25 Mcg (1,000 Units) Tablet PO DAILY [facility] Radiology Results: ITS Impressions Head CT 11/22/24 10:55 Impression: 1.No acute intracranial abnormality. Cervical Spine CT 11/22/24 11:03 IMPRESSION: 1. No fracture. 2. Severe cervical spondylosis. Chest X-Ray 11/22/24 12:18 IMPRESSION: 1. No acute cardiopulmonary findings given portable technique. Labs Labs: Laboratory Results - last 24 hr 11/22/24 11/23/24 11:51 04:17 WBC 8.2 7.1 RBC 4.82 4.33 Hgb 14.0 12.7 Hct 44.9 39.6 MCV 93.2 91.5 MCH 29.0 29.3 MCHC 31.2 L 32.1 RDW 14.1 14.2 Plt Count 294 261 MPV 9.1 9.0 Immature Gran % (Auto) 0.4 0.3 Neut % (Auto) 65.8 59.2 Lymph % (Auto) 17.8 L 22.1 [place] % (Auto) 9.7 H 10.8 H Eos % (Auto) 5.3 H 6.3 H Baso % (Auto) 1.0 1.3 H Lymph # (Auto) 1.45 1.57 [place] # (Auto) 0.8 H 0.8 H Eos # (Auto) 0.4 H 0.5 H Baso # (Auto) 0.1 0.1 Abs Immat Gran (auto) 0.03 0.02 Absolute Neuts (auto) 5.4 4.2 Absolute Nucleated RBC 0.000 0.000 Nucleated RBC % 0.0 0.0 Sodium 140 138 Potassium 4.7 4.1 Chloride 107 109 H Carbon Dioxide 26 26 Anion Gap 7 3 L BUN 46 H 34 H D Creatinine 1.48 H 1.26 H Estim Creat Clear Calc 20 22 Estimated GFR 34 L 40 L Glucose 93 91 Calcium 9.4 8.7 Total Bilirubin 0.3 AST 29 ALT 21 Alkaline Phosphatase 83 Total Protein 7.1 Albumin 4.3 Urine Color Yellow Urine Appearance Clear Urine pH 5.5 Ur Specific [place] 1.019 Urine Protein Negative Urine Glucose (UA) Negative Urine Ketones Negative Ur Blood (Man) Negative Urine Nitrate Negative Urine Bilirubin Negative Urine Urobilinogen 0.2 Add Ur Microanalysis Reviewed Leukocyte Esterase Rfl 2+ H Urine RBC 0-2 Urine WBC 0-5 Ur Squamous Epith Cells None seen Urine Bacteria None seen Urine Casts 0-2 Influenza A (RT-PCR) Negative Influenza B (RT-PCR) Negative RSV (RT-PCR) Negative SARS-CoV-2 RNA (RT-PCR) Negative Quality VTE Prophylaxis VTE prophylaxis: mechanical ordered and pharmacologic ordered
[2024-11-23] MEDS: METOPROLOL TARTRATE 25 MG TABLET PO (09:47)
[2024-11-23] MEDS: CHOLECALCIFEROL (VITAMIN D3) 25 MCG (1,000 UNITS) TABLET PO (09:47)
[2024-11-23] MEDS: ENOXAPARIN 30 MG/0.3 ML SYRINGE SUB-Q (09:48)
[2024-11-23] MEDS: DULoxetine HCL 60 MG CAPSULE.DR PO (09:48)
[2024-11-23] MEDS: MECLIZINE HCL 6.25 MG TABLET PO ×2 (09:48→13:04)
[2024-11-23] MEDS: [UNRECOGNIZED DRUG - OTHER] PO (13:04)
[2024-11-23] MEDS: COLESEVELAM 625 MG PO (13:04)
--- NOTE | 2024-11-23 13:28 | P.DS_ITS ---
DS: Admitting Diagnosis Discharge Date 11/23 Admitting Diagnosis htn DS: Discharge Diagnosis Discharge Diagnosis (1) Lightheadedness: Code(s): R42 - Dizziness and giddiness Status: Acute (2) Hypertensive emergency: Code(s): I16.1 - Hypertensive emergency Status: Acute (3) Fall: Code(s): W19.XXXA - Unspecified fall, initial encounter Status: Acute (4) Depression: Code(s): F32.A - Depression, unspecified Status: Acute (5) Chronic renal insufficiency: Qualifiers: Chronic kidney disease stage: stage 3 (moderate) Chronic kidney disease stage 3 subtype: stage 3b (GFR 30-44) Qualified Code(s): N28.89 - Other specified disorders of kidney and ureter Code(s): N18.9 - Chronic kidney disease, unspecified Status: Acute DS: Summary Hospital Course Hospital Course: 84-year-old female past medical history of insomnia, hypothyroidism, depression presents the hospital after a fall with complaints of dizziness lightheadedness. Influenza A/B RSV COVID negative. Chest x-ray with no acute findings. CT cervical spine with no acute fractures. Head CT with no acute findings. EKG shows sinus Prashanth a with rate of 56. In the emergency room her blood pressure is 220/94 with map of 136. She will be admitted for hypertensive emergency. Pt is seen and examined. BP had been stable overall. No chest pain, no sob. ECHO is done but results are not available. Pt doensot want to wait for results and wnats to leave now. Agreeable to come back if needed. Discussed metoprolol as she uses it for HTN. She doesnot want to make any adjustment to bp meds and wants to see her pcp for furtehr discussion. BP had been stable and she is no longer feeling dizzy or ligth headed Status at Discharge Functional status at discharge: independent ambulation Overall status at discharge: patient is back to baseline Time Spent with Patient Time attestation: Total time spent providing and/or coordinating discharge services: Time spent: Greater than 30 minutes Exam Narrative: General: well appearing, appears stated age. HEENT: normocephalic, atraumatic. Mucous membranes moist. EOMI, PERRLA, bilateral sclera anicteric, no conjunctival injection. Neck supple without JVD, lymphadenopathy, or bruit. Respiratory: clear to ascultation bilaterally. No rales/rhonic/wheezes. Cardiovascular: Regular rate and rhythm, normal S1-S2 upon ascultation. No murmurs, rubs, or clicks. PMI is nondisplaced, capillary refill less than 3 second. Abdomen: Soft, round, no pulsatile masses, nondistended and nontender. No rebound, no guarding. No CVA tenderness, no hepatosplenomegaly. Bowel sounds present to all four quadrants. No high pitch or tinkling sounds, resonant to percussion. Extremities: No cyanosis, clubbing, or edema present. Pulses are palpable 2/2. Active ROM to all four extremities. Neuro: Alert and orientated x 4. PERRLA. Cranial nerves 2-12 intact without focal deficit. Skin: Warm, dry, and intact, without rash, erythema, or lesion. Psych: pleasant, cooperative, normal speech, normal affect, no hallucinations, no dysarthia Const: General: comfortable DS: Data Data Completed and Pending Labs on day of discharge: Labs from last 24 hours 11/23/24 11/22/24 04:17 11:51 WBC 7.1 RBC 4.33 Hgb 12.7 Hct 39.6 MCV 91.5 MCH 29.3 MCHC 32.1 RDW 14.2 Plt Count 261 MPV 9.0 Immature Gran % (Auto) 0.3 Neut % (Auto) 59.2 Lymph % (Auto) 22.1 [place] % (Auto) 10.8 H Eos % (Auto) 6.3 H Baso % (Auto) 1.3 H Lymph # (Auto) 1.57 [place] # (Auto) 0.8 H Eos # (Auto) 0.5 H Baso # (Auto) 0.1 Abs Immat Gran (auto) 0.02 Absolute Neuts (auto) 4.2 Absolute Nucleated RBC 0.000 Nucleated RBC % 0.0 Sodium 138 Potassium 4.1 Chloride 109 H Carbon Dioxide 26 Anion Gap 3 L BUN 34 H D Creatinine 1.26 H Estim Creat Clear Calc 22 Estimated GFR 40 L Glucose 91 Calcium 8.7 Influenza A (RT-PCR) Negative Influenza B (RT-PCR) Negative RSV (RT-PCR) Negative SARS-CoV-2 RNA (RT-PCR) Negative Discharge Plan Discharge Attending physician on discharge: Merrick Mock Consulting providers: Silvia Wetzel Discharging Clinician: Geetha Gutierrez Patient Disposition: Home Activity: may shower Diet: heart healthy Discharge Instructions: Please talk to your PCP about metoprolol. Change position slowly top avoid f eeling dizzy. Come back to ed if feeling chest pain, sob, and/or any new or concerning symptoms. YOu ua was not convincing for UTI, so no need to continue antibitocs unless you start having symptoms. Patient Instructions: Antibiotic Form Patient Language: Occitan Stand Alone Forms: General Discharge Information Follow-up/Referrals: PHYSICIAN NOT ON STAFF,NONSTAFF [Primary Care Provider] - 2 Weeks Referral Note: f/u with PCP within 102 weeks Discharge Medications: Continued diclofenac sodium-menthol 1.5-10 % combo pack 1 pkg topical DAILY ipratropium bromide 21 mcg (0.03 %) spray,non-aerosol 2 spray intranasal TID Rx Instructions: administer into each nostril cholecalciferol (vitamin D3) [Vitamin D3] 25 mcg (1,000 unit) capsule 25 mcg PO DAILY colesevelam 625 mg tablet 1,250 mg PO Q12H duloxetine 60 mg capsule,delayed release(DR/EC) 60 mg PO Q12H trazodone 50 mg tablet 50 mg PO QHS PRN (Reason: insomnia) Qty: 90 2RF metoprolol tartrate 25 mg tablet 25 mg PO BID Qty: 180 0RF tramadol 50 mg tablet 50 mg PO Q6H PRN (Reason: pain) Qty: 30 0RF levothyroxine 25 mcg tablet See Rx Instructions .ROUTE .COMPLEX Qty: 90 0RF Dose Instruction: TAKE 1 TABLET BY MOUTH DAILY Rx Instructions: TAKE 1 TABLET BY MOUTH DAILY Date of admission: 11/22/24 15:17 Primary Care Provider: PHYSICIAN NOT ON STAFF,NONSTAFF Admitting Provider: Merrick Mock Attending physician on admission: Merrick Mock Condition: Serious Quality VTE Prophylaxis VTE prophylaxis: mechanical ordered and pharmacologic ordered
--- NOTE | 2024-11-23 13:54 | PCPTNOTE ---
1325 attempted to evaluate patient, but patient dressed in her normal clothes is stating she is getting discharged. A discharge summary is in the chart. Patient reports no concerns about functional mobility stating she is no longer dizzy and does not feel like she needs to do a physical therapy evaluation. Will attempt to see tomorrow if patient is still here as time allows.
== END 2024-11-23 15:30 | disposition home or self-care (01) ==
LOC: ANHED 15:17 → ANHIMU 16:03
PROVIDERS: Nurse Practitioner Gerontology; Admitting Provider Internal Medicine; Emergency Provider Emergency Medicine; Visit Provider Internal Medicine
DX: R42 Dizziness and giddiness (principal); I16.1 Hypertensive emergency; S09.90XA Unspecified injury of head, initial encounter; W19.XXXA Unspecified fall, initial encounter; N18.32 Chronic kidney disease, stage 3b; K21.9 Gastro-esophageal reflux disease without esophagitis; I12.9 Hypertensive chronic kidney disease with stage 1 through stage 4 chronic kidney disease, or unspecified chronic kidney disease; E03.9 Hypothyroidism, unspecified; F41.8 Other specified anxiety disorders; M19.91 Primary osteoarthritis, unspecified site; K58.9 Irritable bowel syndrome, unspecified; Z96.653 Presence of artificial knee joint, bilateral; Z87.891 Personal history of nicotine dependence; Z20.822 Contact with and (suspected) exposure to COVID-19; Z82.49 Family history of ischemic heart disease and other diseases of the circulatory system
CPT/HCPCS: 36415; 70450; 71045; 72125; 80048; 80053; 81001; 85025; 87086; 87637; 93005; 93306; 96361; 96365; 96372; 96375; 99285; A9270; G0378; J0360; J0696; J1650; J7120